=== PATIENT | female | born 1980 | race African-American/Black ===

== ENCOUNTER 2019-11-11 15:28 | Inpatient (IN) | payer MEDICAID, SELFPAY ==
[2019-11-11] VITALS (8 sets, daily range): BP systolic 98–114; BP diastolic 80–83; PULSE 81–126; RESP 20–26; TEMP 37.4–37.8; O2SAT 94–100; BMI 14.9
--- NOTE | ~2019-11-11 | XR_ITS ---
XR abdomen/kub 1V 11/16/2019 13:39 INDICATION: Patient not passing gas. TECHNIQUE: KUB COMPARISON: None FINDINGS: Bowel gas pattern is normal. There is no evidence of free air, mass, organomegaly, ascites or obstruction. No abnormal calculi are seen. The bones appear intact. IMPRESSION: 1: No acute abdominal abnormality identified. Reviewed, dictated and finalized at location A.
--- NOTE | ~2019-11-11 | CT_ITS ---
EXAMINATION: CTA chest PE protocol EXAM DATE: 11/15/2019 16:35 INDICATION: Pneumonia, elbow and troponin. Hypoxia shortness of breath. Chest pain. TECHNIQUE: Spiral CTA of the chest (pulmonary arteries) was performed with 100 cc Omnipaque 350 intr avenous contrast injection. Images were acquired during the pulmonary arterial phase. Coronal maxi mum intensity projection 3D-reconstructions were created by the technologist on dedicated workstation . Axial, coronal and sagittal reformatted images were reviewed. The dose-length product (DLP) for t his examination was 138.80 mGy-cm. The exposure was tailored according to patient size (auto mA exp osure control), and iterative reconstruction (ASIR) was used as additional dose reduction technique. There is no prior study for comparison. FINDINGS: Pulmonary arteries are well opacified and without intraluminal filling defects. No thora cic aortic dissection. Dense multisegmental bilateral lower lobe consolidation, with heterogeneous d ensity, appearance most consistent with bacterial pneumonia. There are extensive scattered regions of honeycombing, and regions of severe emphysema, cavitation largest in the right lung measuring 13 x 8 cm in axial dimensions. There is no bronchiectasis. Patient has some underlying process causing inte rstitial lung disease, possibly advanced sarcoidosis. Tracheobronchial tree is patent. Subcarinal soft tissue density ill-defined, can't separate lymph n ode or nodes from the esophagus, and there is also generalized body wall edema, fat stranding within the fat planes. There are small bilateral pleural and pericardial effusions. There is no pneumothora x. Heart normal in size. No evidence of coronary arterial calcification. Upper abdomen is unrema rkable. There is thoracic spondylosis without osteoblastic or osteolytic lesions identified. IMPRESSION: 1. No pulmonary emboli. 2. Multisegmental bibasilar consolidation, likely bacterial pneumonia. 3. Severe interstitial lung disease with large regions cavitation and honeycombing. If patient does not have known diagnosis, recommend pulmonary consult. 4. Possible subcarinal lymphadenopathy. 5. Anasarca. Reviewed, dictated and finalized at location A. IMPRESSION: 1. No pulmonary emboli. 2. Multisegmental bibasilar consolidation, likely bacterial pneumonia. 3. Severe interstitial lung disease with large regions cavitation and honeycom saadia. If patient does not have known diagnosis, recommend pulmonary consult. 4. Possible subcarinal lymphadenopathy. 5. Anasarca.
--- NOTE | ~2019-11-11 | XR_ITS ---
MODIFIED ESOPHAGRAM HISTORY: Dysphagia. TECHNIQUE: Modified barium esophagram was performed by speech pathologist under radiologist fluorosco pic guidance. This was recorded on tape. The exam was reviewed on 11/17/2019 14:36 CDT. The DAP for this procedure was 1.3 Gycm2. Fluoroscopy time is 2 minutes. FINDINGS: Lateral projection of the cervical spine demonstrates normal alignment. There is normal s wallowing function through all phases without evidence for penetration or aspiration.. IMPRESSION: 1: Normal swallow without penetration or aspiration. 2: Please refer to speech pathologist report for additional detail. Reviewed, dictated and finalized at location A.
--- NOTE | ~2019-11-11 | XR_ITS ---
XR chest 1V portable DATE: 11/11/2019 16:01 INDICATION: Unresponsive patient TECHNIQUE: Portable AP chest on 11/11/2019 at 1555 hours COMPARISON: None FINDINGS: Bilateral hyperinflation and bullae are identified. There is some discoid opacities overlying the left lower lung field which might represent discoid ate lectasis or scarring. Patchy infiltrates are noted in both lower lung zones. Consider pneumonia as we ll as aspiration pneumonitis. No pleural effusion or pulmonary vascular congestion or pneumothorax is evident. Normal heart size. No hilar or mediastinal enlargement is evident. IMPRESSION: Bullous emphysema Patchy bilateral lower lung infiltrates and/atelectasis; consider pneumonia as well as aspiration pne umonitis Reviewed, dictated and finalized at location A. IMPRESSION: Bullous emphysema Patchy bilateral lower lung infiltrates and/atelectasis; consider pneumonia as well as aspiration pneumonitis
--- NOTE | ~2019-11-11 | CT_ITS ---
EXAMINATION: CT brain wo con DATE: 11/11/2019 16:03 INDICATION: Altered mental status. TECHNIQUE: Computed tomography (CT) of the head was performed without intravenous contrast. Sagittal and coronal reconstructions were performed. The mA was adjusted according to patient size. Iterative reconstruction technique was employed. The dose-length product was 605.33 mGy-cm. COMPARISON: None FINDINGS: No acute intracranial hemorrhage, acute infarction or abnormal extra axial fluid collection. Ventricl es are normal and symmetric. No mass/mass effect. The orbits, paranasal sinuses and mastoid air cells are normal. IMPRESSION: 1. Normal head CT. Reviewed, dictated and finalized at location A. IMPRESSION: 1. Normal head CT.
--- NOTE | ~2019-11-11 | XR_ITS ---
XR chest 2V 11/15/2019 09:44 Indication: Pneumonia. Cough and dyspnea. Procedure: PA and lateral views of the chest Comparison: 11/11/2019 Findings: There has been progression of bilateral airspace disease, compatible with pneumonia. This i s superimposed on severe bullous emphysema. Probable small effusions. No pneumothorax identified. No acute osseous abnormality. Impression: 1: Progression of bilateral pneumonia, predominantly basilar, superimposed on emphysema. Reviewed, dictated and finalized at location A. Impression: 1: Progression of bilateral pneumonia, predominantly basilar, superimposed on e mphysema.
--- NOTE | 2019-11-11 15:36 | ECG_ITS ---
Measurements Intervals Superior Rate: 120 P: 77 IL: 149 QRS: 70 QRSD: 81 T: 57 QT: 318 QTc: 449 Interpretive Statements SINUS TACHYCARDIA MINIMAL Q WAVES- INFERIOR LEADS BASELINE ARTIFACT- II, III ABNORMAL ECG Electronically Signed On 11-11-2019 17:10:59 CDT by Jaydon Duran D.O.
[2019-11-11 16:22] LABS: Basophils Percent Auto 0.3 % (0.2-1.2); Hematocrit 33.1 % (37.0-47.0); Hemoglobin 10.7 g/dL (12.0-15.0); Immature Granulocyte Absolute 0.01 K/mm3 (0.00-0.031); Immature Granulocyte Percent A 0.3 % (0-0.5); Lymphocytes Absolute Auto 0.25 K/mm3 (0.9-3.2); Lymphocytes Percent Auto 6.6 % (18.3-44.2); Mean Corpuscular HGB Conc 32.3 g/dl (32-36); Mean Corpuscular Hemoglobin 28.5 pg (26-34); Mean Corpuscular Volume 88.3 fl (80-100); Mean Platelet Volume 10.5 fl (7.4-10.4); Monocytes Absolute Auto 0.3 K/mm3 (0.1-0.6); Neutrophils Absolute Auto 3.2 K/mm3 (1.3-6.7); Neutrophils Percent Auto 84.8 % (45.5-73.1); Platelet Count Result 273 k/mm3 (150-375); Red Blood Count 3.75 M/mm3 (4.2-5.4); Red Cell Distribution Width 13.8 % (11.5-14.5); White Blood Count 3.8 K/mm3 (4.5-10.0)
[2019-11-11 16:31] LABS: Prothrombin Time 12.4 Seconds (11.1-14.7)
[2019-11-11 16:34] LABS: Acetaminophen < 10 ug/mL (10-30); Ammonia < 9 umol/L (9-30); Ethanol < 10 mg/dL (<10); Salicylate < 1.0 mg/dL (2-20)
[2019-11-11 16:36] LABS: Add Urine Microscopic? YES; Appearance Urine Clear (Clear); Bacteria Urine Trace /hpf; Bilirubin Urine 1+ (Negative); Blood Urine Negative (Negative); Color Urine Amber (Yellow); Glucose Urine UA Negative (Negative); Ketones Urine Trace mg/dL (Negative); Leukocyte Esterase Ur Trace LEU/UL (Negative); Mucus Urine Rare /lpf; Nitrate Urine Negative (Negative); Protein Urine 2+ mg/dL (Negative); Specific Grav Ur 1.028 (1.001-1.035); Squamous Epithelial Cell Urine Few /hpf (Few)
[2019-11-11 16:36] LABS: Alanine Aminotransferase 11 U/L (4-35); Albumin Level 3.1 g/dL (3.5-5.1); Alkaline Phosphatase 70 U/L (38-126); Aspartate Amino Transferase 41 U/L (14-36); Bilirubin,Total 1.1 mg/dL (0.2-1.3); Blood Urea Nitrogen 36 mg/dL (7-17); Calcium 9.1 mg/dL (8.4-10.2); Carbon Dioxide 31 mmol/L (22-30); Chloride 96 mmol/L (98-107); Estimated CRCL calculation 39 ml/min; Estimated Glomerular Filt Rate > 60; Glucose 117 mg/dL (65-105); Potassium 3.5 mmol/L (3.4-5.0); Sodium 136 mmol/L (137-145)
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
[2019-11-11] MEDS: SODIUM CHLORIDE 0.9% IV 1,000 ML 125 ML IV CONT (18:13)
[2019-11-11] MEDS: ONDANSETRON INJ 4 MG/2 ML VIAL IV PUSH (18:13)
[2019-11-11 18:46] LABS: Amphetamine Screen Urine Negative (Negative); Barbiturate Screen Urine Negative (Negative); Benzodiazepines Screen Urine Negative (Negative); Cannabinoid Screen Urine Negative (Negative); Cocaine Screen Urine Negative (Negative); Methadone Screen Urine Negative (Negative); Opiate Screen Urine Negative (Negative); Phencyclidine Screen Urine Negative (Negative)
--- NOTE | 2019-11-11 19:20 | ADMIMU ---
This patient, Tracey Silverio, was admitted to IMU status, and placed in Intensive Care Unit-3. Patient/family oriented to hospital policies and general routines including ID bracelet, bed and alarms, visiting hours, pain management, procedures, bathroom and other care routines, personal items, smoking policy, room service/diet, and visiting hours. Valuables list has been completed. Information on how to activate the Rapid Response Team has been discussed. Patient/Family are encouraged to report perceived risks to care and to ask questions if they do not understand what they are told or what they should do.
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
[2019-11-11 20:36] LABS: Troponin I 0.054 ng/mL (0.000-0.034)
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
[2019-11-11] MEDS: FAMOTIDINE 20 MG/2 ML VIAL IV PUSH (21:14)
[2019-11-11 23:27] LABS: Bilirubin,Total 0.6 mg/dL (0.2-1.3)
[2019-11-11 23:29] LABS: Immature Reticulocyte Fraction 12.1 % (3.0-15.9); Reticulocyte Hemoglobin Conten 34.7 pg (28.2-35.7); Reticulocytes Absolute 0.04 B/L (32.2-175.7)
[2019-11-11 23:31] LABS: CRP 1.6 mg/dL (<1.0); Lactate Dehydrogenase 635 U/L (313-618)
[2019-11-11 23:34] LABS: Transferrin 134 mg/dL (206-381)
[2019-11-11 23:42] LABS: Troponin I 0.092 ng/mL (0.000-0.034)
[2019-11-11 23:49] LABS: Iron 37 ug/dL (37-170)
[2019-11-11 23:58] LABS: Percent Iron Saturation 18 % (20-50)
[2019-11-12] VITALS (11 sets, daily range): BP systolic 94–120; BP diastolic 64–84; PULSE 72–95; RESP 14–22; TEMP 36.1–37.8; O2SAT 83–100
[2019-11-12 00:34] LABS: Folic Acid 4.7 ng/mL (2.76->20)
[2019-11-12 01:11] LABS: Ferritin > 2000.00 ng/mL (6.24-137)
[2019-11-12] MEDS: SODIUM CHLORIDE 0.9% IV 1,000 ML 125 ML IV CONT (04:19)
[2019-11-12 04:49] LABS: Blood Urea Nitrogen 27 mg/dL (7-17); Calcium 8.2 mg/dL (8.4-10.2); Carbon Dioxide 32 mmol/L (22-30); Chloride 100 mmol/L (98-107); Estimated CRCL calculation 54 ml/min; Estimated Glomerular Filt Rate > 60; Glucose 123 mg/dL (65-105); Potassium 2.9 mmol/L (3.4-5.0); Sodium 134 mmol/L (137-145)
[2019-11-12 05:13] LABS: Free T4 Free Thyroxine Reflex 1.46 ng/dL (0.78-2.19)
[2019-11-12 05:14] LABS: Troponin I 0.065 ng/mL (0.000-0.034)
[2019-11-12 05:58] LABS: Total Triiodothyronine (T3) 0.63 NG/ML (0.97-1.69)
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
[2019-11-12] MEDS: POTASSIUM CHLORIDE 20 MEQ TABLET 40 MEQ PO (09:41)
[2019-11-12] MEDS: FAMOTIDINE 20 MG/2 ML VIAL IV PUSH ×2 (09:41→22:06)
[2019-11-12] MEDS: ASPIRIN 81 MG CHEWABLE TABLET PO (09:41)
[2019-11-12] MEDS: FERROUS SULFATE 324 MG TABLET PO (12:13)
--- NOTE | 2019-11-12 12:29 | PC.NURSE ---
This patient, Tracey Silverio, was transferred to [[address] ] on 11/12/19 at 1220. Personal belongings sent with patient. Belongings list checked and signed with receiving [3ms belongings bag ]. Report given to [ khloe]. Appropriate documentation sent with patient.
[2019-11-12 13:39] LABS: SARS-CoV-2 RNA PCR Negative
--- NOTE | 2019-11-12 14:04 | PC.NURSE ---
This patient, Tracey Silverio, was received from ICU on 11/12/19 at 1220. Personal belongings list checked and signed. Patient/family oriented to unit policies and routines
[2019-11-12] MEDS: SODIUM CHLORIDE 0.9% IV 1,000 ML 75 ML IV CONT (17:52)
[2019-11-12] MEDS: DOCUSATE SODIUM 100 MG CAPSULE PO (17:54)
[2019-11-12] MEDS: ACETAMINOPHEN 325 MG TABLET 650 MG PO (22:05)
[2019-11-13] VITALS (11 sets, daily range): BP systolic 90–98; BP diastolic 58–70; PULSE 71–96; RESP 14–18; TEMP 36.7–37.3; O2SAT 94–99
[2019-11-13 05:50] LABS: Hematocrit 26.5 % (37.0-47.0); Hemoglobin 8.3 g/dL (12.0-15.0); Mean Corpuscular HGB Conc 31.3 g/dl (32-36); Mean Corpuscular Hemoglobin 28.3 pg (26-34); Mean Corpuscular Volume 90.4 fl (80-100); Mean Platelet Volume 10.5 fl (7.4-10.4); Platelet Count Result 188 k/mm3 (150-375); Red Blood Count 2.93 M/mm3 (4.2-5.4); Red Cell Distribution Width 13.6 % (11.5-14.5); White Blood Count 2.4 K/mm3 (4.5-10.0)
[2019-11-13 06:08] LABS: Blood Urea Nitrogen 18 mg/dL (7-17); Calcium 7.7 mg/dL (8.4-10.2); Carbon Dioxide 27 mmol/L (22-30); Chloride 106 mmol/L (98-107); Estimated CRCL calculation 79 ml/min; Estimated Glomerular Filt Rate > 60; Glucose 86 mg/dL (65-105); Potassium 3.4 mmol/L (3.4-5.0); Sodium 134 mmol/L (137-145)
[2019-11-13] MEDS: ASPIRIN 81 MG CHEWABLE TABLET PO (08:27)
[2019-11-13] MEDS: FERROUS SULFATE 324 MG TABLET PO (08:27)
[2019-11-13] MEDS: FAMOTIDINE 20 MG/2 ML VIAL IV PUSH ×2 (08:28→20:40)
[2019-11-13] MEDS: SODIUM CHLORIDE 0.9% IV 1,000 ML 75 ML IV CONT ×2 (08:29→23:55)
[2019-11-13] MEDS: DOCUSATE SODIUM 100 MG CAPSULE PO (08:41)
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
[2019-11-13] MEDS: POTASSIUM CHLORIDE 20 MEQ TABLET.ER PO (12:20)
[2019-11-13] MEDS: IPRATROPIUM BR 0.02% INH SOLN 0.5 MG/2.5 ML VIAL INHALATION ×2 (13:32→19:31)
[2019-11-13] MEDS: ALBUTEROL SULFATE NEB 2.5 MG/0.5 ML INH 5 MG INHALATION ×2 (13:32→19:31)
[2019-11-14] VITALS (15 sets, daily range): BP systolic 96–113; BP diastolic 68–80; PULSE 83–101; RESP 16–20; TEMP 36.6–37; O2SAT 91–99
[2019-11-14] MEDS: ALBUTEROL SULFATE NEB 2.5 MG/0.5 ML INH 5 MG INHALATION ×4 (01:08→20:17)
[2019-11-14] MEDS: IPRATROPIUM BR 0.02% INH SOLN 0.5 MG/2.5 ML VIAL INHALATION ×4 (01:08→20:17)
[2019-11-14 05:19] LABS: Hematocrit 26.6 % (37.0-47.0); Hemoglobin 8.4 g/dL (12.0-15.0); Mean Corpuscular HGB Conc 31.6 g/dl (32-36); Mean Corpuscular Hemoglobin 28.6 pg (26-34); Mean Corpuscular Volume 90.5 fl (80-100); Platelet Count Result 219 k/mm3 (150-375); Red Blood Count 2.94 M/mm3 (4.2-5.4); Red Cell Distribution Width 13.9 % (11.5-14.5); White Blood Count 2.7 K/mm3 (4.5-10.0)
[2019-11-14 05:30] LABS: Blood Urea Nitrogen 13 mg/dL (7-17); Calcium 8.1 mg/dL (8.4-10.2); Carbon Dioxide 27 mmol/L (22-30); Chloride 105 mmol/L (98-107); Estimated CRCL calculation 93 ml/min; Estimated Glomerular Filt Rate > 60; Glucose 88 mg/dL (65-105); Magnesium 1.4 mg/dL (1.6-2.3); Potassium 3.3 mmol/L (3.4-5.0); Sodium 134 mmol/L (137-145)
[2019-11-14] MEDS: MAGNESIUM SULF 2 GM/WATER 50ML 2 GM/50 ML BAG IVPB (07:58)
[2019-11-14] MEDS: FAMOTIDINE 20 MG/2 ML VIAL IV PUSH ×2 (07:59→20:12)
[2019-11-14] MEDS: FERROUS SULFATE 324 MG TABLET PO (07:59)
[2019-11-14] MEDS: ASPIRIN 81 MG CHEWABLE TABLET PO (07:59)
[2019-11-14] MEDS: POTASSIUM CHLORIDE 20 MEQ TABLET.ER 40 MEQ PO (07:59)
--- NOTE | 2019-11-14 12:54 | PCNWS ---
BMI nutritional screen. BMI:17.2 underweight. Patient is tolerating current diet-Regular with adequate intake. Unsure of weight loss reported. Ensure Compact BID has been added providing an additional 240 kcals and 9 gms protein. No further nutritional needs at this time.
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
[2019-11-14] MEDS: polyethylene glycoL 3350 17 GM POWD.PACK PO (16:16)
[2019-11-14] MEDS: SODIUM CHLORIDE 0.9% IV 1,000 ML 75 ML IV CONT (16:56)
[2019-11-14 21:28] LABS: Albumin 1.9 g/dL (3.8-4.8); Alpha 1 Globulin 0.4 g/dL (0.2-0.3); Alpha 2 Globulin 0.6 g/dL (0.5-0.9); Beta 1 Globulin 0.4 g/dL (0.4-0.6); Gamma Globulin 1.4 g/dL (0.8-1.7); Protein, Total 5.1 g/dL (6.1-8.1)
[2019-11-15] VITALS (13 sets, daily range): BP systolic 98–112; BP diastolic 63–75; PULSE 84–112; RESP 16–20; TEMP 36.8–37.8; O2SAT 92–100
--- NOTE | 2019-11-15 04:25 | PC.NURSE ---
Patient continues to remain disoriented to date despite multiple attempts to reorient to date.
--- NOTE | 2019-11-15 05:45 | PC.NURSE ---
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 Patient noncompliant with physician's verbal instructions to have patient ambulate to bathroom. States that her chest hurts from coughing too much and threatened to call 911 if staff insisted that she ambulate to bathroom. Instead she urinated in the bed intentionally. She stated, it just comes out like that. Instructed that she needs to get up and ambulate, but she adamantly refused. States that she will only get out of bed with physical therapy.
[2019-11-15 06:34] LABS: Hematocrit 25.1 % (37.0-47.0); Mean Corpuscular HGB Conc 31.9 g/dl (32-36); Mean Corpuscular Hemoglobin 28.6 pg (26-34); Mean Corpuscular Volume 89.6 fl (80-100); Mean Platelet Volume 9.6 fl (7.4-10.4); Platelet Count Result 222 k/mm3 (150-375); White Blood Count 2.6 K/mm3 (4.5-10.0)
[2019-11-15 06:45] LABS: Blood Urea Nitrogen 10 mg/dL (7-17); Calcium 7.8 mg/dL (8.4-10.2); Carbon Dioxide 27 mmol/L (22-30); Chloride 107 mmol/L (98-107); Estimated CRCL calculation 99 ml/min; Estimated Glomerular Filt Rate > 60; Glucose 91 mg/dL (65-105); Magnesium 1.5 mg/dL (1.6-2.3); Potassium 3.9 mmol/L (3.4-5.0); Sodium 134 mmol/L (137-145)
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
[2019-11-15] MEDS: IPRATROPIUM BR 0.02% INH SOLN 0.5 MG/2.5 ML VIAL INHALATION ×3 (08:54→20:44)
[2019-11-15] MEDS: ALBUTEROL SULFATE NEB 2.5 MG/0.5 ML INH 5 MG INHALATION ×3 (08:55→20:44)
[2019-11-15] MEDS: POTASSIUM CHLORIDE 20 MEQ TABLET PO (11:03)
[2019-11-15] MEDS: MAGNESIUM SULF 2 GM/WATER 50ML 2 GM/50 ML BAG IVPB (11:04)
[2019-11-15] MEDS: MAGNESIUM OXIDE 400 MG TABLET PO (11:04)
[2019-11-15] MEDS: ASPIRIN 81 MG CHEWABLE TABLET PO (11:05)
[2019-11-15] MEDS: FERROUS SULFATE 324 MG TABLET PO (11:05)
[2019-11-15] MEDS: POTASSIUM CHLORIDE 20 MEQ TABLET.ER 40 MEQ PO (11:05)
[2019-11-15] MEDS: FAMOTIDINE 20 MG/2 ML VIAL IV PUSH ×2 (11:06→20:36)
--- NOTE | 2019-11-15 12:33 | PC.NURSE ---
I contacted Dr Loyd to review CXR results, new 02 requirements of 4L/NC after activity, PT tolerance, and c/o SOB and chest pain with activity. states plan is to change antibiotics since pneumonia worsening with current meds. Orders received for CTA and additional med for cough. Will continue to monitor closely. Patient remains alert and responding appropriately to questions and staff interactions.
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
--- NOTE | 2019-11-15 18:49 | PC.NURSE ---
Patient refuses to take PO medications stating that pills make her feel sick to her stomach. Dr. Loyd notified, no new orders.
--- NOTE | 2019-11-15 18:52 | PC.NURSE ---
Patient went from 1L of O2 to 4L of O2. Patient sustained 95-97% on 4L of O2 up from just 1L. Dr. Loyd notified, order to keep trying to wean patient off O2. Patient still at 4L, no further orders.
[2019-11-16] VITALS (18 sets, daily range): BP systolic 99–113; BP diastolic 58–76; PULSE 82–130; RESP 16–32; TEMP 36.8–37.9; O2SAT 84–99; BMI 17.8
[2019-11-16] MEDS: ALBUTEROL SULFATE NEB 2.5 MG/0.5 ML INH 5 MG INHALATION ×4 (01:36→20:56)
[2019-11-16] MEDS: IPRATROPIUM BR 0.02% INH SOLN 0.5 MG/2.5 ML VIAL INHALATION ×4 (01:36→20:57)
[2019-11-16 05:01] LABS: Haptoglobin 187 mg/dL (43-212)
[2019-11-16 06:40] LABS: Hematocrit 25.6 % (37.0-47.0); Hemoglobin 8.1 g/dL (12.0-15.0); Mean Corpuscular HGB Conc 31.6 g/dl (32-36); Mean Corpuscular Hemoglobin 28.5 pg (26-34); Mean Corpuscular Volume 90.1 fl (80-100); Platelet Count Result 237 k/mm3 (150-375); Red Blood Count 2.84 M/mm3 (4.2-5.4); Red Cell Distribution Width 14.1 % (11.5-14.5); White Blood Count 3.2 K/mm3 (4.5-10.0)
[2019-11-16 06:49] LABS: Alanine Aminotransferase 7 U/L (4-35); Alkaline Phosphatase 56 U/L (38-126); Aspartate Amino Transferase 23 U/L (14-36); Bilirubin,Total 0.4 mg/dL (0.2-1.3); Blood Urea Nitrogen 10 mg/dL (7-17); Calcium 8.2 mg/dL (8.4-10.2); Carbon Dioxide 28 mmol/L (22-30); Chloride 105 mmol/L (98-107); Estimated CRCL calculation 84 ml/min; Estimated Glomerular Filt Rate > 60; Glucose 93 mg/dL (65-105); Magnesium 1.6 mg/dL (1.6-2.3); Potassium 3.9 mmol/L (3.4-5.0); Sodium 134 mmol/L (137-145)
[2019-11-16] MEDS: ASPIRIN 81 MG CHEWABLE TABLET PO (08:10)
[2019-11-16] MEDS: POTASSIUM CHLORIDE 20 MEQ TABLET.ER 40 MEQ PO (08:10)
[2019-11-16] MEDS: FAMOTIDINE 20 MG/2 ML VIAL IV PUSH ×2 (08:10→20:22)
[2019-11-16] MEDS: MAGNESIUM OXIDE 400 MG TABLET PO (08:10)
[2019-11-16] MEDS: FERROUS SULFATE 324 MG TABLET PO (08:10)
[2019-11-16] MEDS: BISACODYL 10 MG SUPPOSITORY RECTAL (15:28)
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
[2019-11-16] MEDS: ACETAMINOPHEN 325 MG TABLET 650 MG PO (18:49)
[2019-11-16 18:59] LABS: IFOB Positive Control Positive; Immunochemical Fecal Occult Bl Positive (N)
--- NOTE | 2019-11-16 22:45 | PCRCNOTE ---
An ABG and PRN albuterol treatment were ordered on the patient due to SOB, desaturation, and trouble getting a consistent SpO2 reading. She refused both. Both the nurse (Lynne Briones) and I talked with her about it but she refused. Lynne informed Dr. Bruner. [facility] updated with refusal.
[2019-11-17] VITALS (8 sets, daily range): BP systolic 96–111; BP diastolic 68–78; PULSE 83–119; RESP 18–24; TEMP 36.7–37.1; O2SAT 96–100
[2019-11-17] MEDS: ONDANSETRON INJ 4 MG/2 ML VIAL IV PUSH (04:43)
[2019-11-17 06:09] LABS: Hemoglobin 8.4 g/dL (12.0-15.0); Mean Corpuscular HGB Conc 32.3 g/dl (32-36); Mean Corpuscular Hemoglobin 28.4 pg (26-34); Mean Corpuscular Volume 87.8 fl (80-100); Mean Platelet Volume 9.6 fl (7.4-10.4); Platelet Count Result 245 k/mm3 (150-375); Red Blood Count 2.96 M/mm3 (4.2-5.4); White Blood Count 7.1 K/mm3 (4.5-10.0)
[2019-11-17 06:31] LABS: Alanine Aminotransferase 8 U/L (4-35); Albumin Level 2.1 g/dL (3.5-5.1); Alkaline Phosphatase 65 U/L (38-126); Aspartate Amino Transferase 26 U/L (14-36); Bilirubin,Total 0.6 mg/dL (0.2-1.3); Blood Urea Nitrogen 13 mg/dL (7-17); Calcium 7.9 mg/dL (8.4-10.2); Carbon Dioxide 27 mmol/L (22-30); Chloride 103 mmol/L (98-107); Estimated CRCL calculation 75 ml/min; Estimated Glomerular Filt Rate > 60; Glucose 101 mg/dL (65-105); Magnesium 1.4 mg/dL (1.6-2.3); Potassium 4.4 mmol/L (3.4-5.0); Sodium 134 mmol/L (137-145)
--- NOTE | 2019-11-17 07:26 | PCPTNOTE ---
The PT treatment was held 11/16/2019 pending clarification of lab tests. Will continue per Plan of Care frequency and duration.
[2019-11-17] MEDS: ALBUTEROL SULFATE NEB 2.5 MG/0.5 ML INH 5 MG INHALATION (08:30)
[2019-11-17] MEDS: IPRATROPIUM BR 0.02% INH SOLN 0.5 MG/2.5 ML VIAL INHALATION (08:30)
--- NOTE | 2019-11-17 08:50 | PC.NURSE ---
I contacted Dr Loyd and status report given including labs. I advised him that patient alert and oriented to person place and time and was demonstrating appropriate behaviors overnight. I also reviewed 02 saturations and requirments overnight and patient refusal of ABGs. Dr Loyd aware that patient remains on closed camera for monitoring but he stated that she does not demonstrate or voice any homicidal or self-harming thoughts or actions. He stated that patient can be relocated to another room with no camera monitoring system or sitter required.
[2019-11-17] MEDS: ASPIRIN 81 MG CHEWABLE TABLET PO (09:15)
[2019-11-17] MEDS: polyethylene glycoL 3350 17 GM POWD.PACK PO (09:15)
[2019-11-17] MEDS: POTASSIUM CHLORIDE 20 MEQ TABLET.ER 40 MEQ PO (09:16)
[2019-11-17] MEDS: MAGNESIUM OXIDE 400 MG TABLET PO (09:16)
[2019-11-17] MEDS: FERROUS SULFATE 324 MG TABLET PO (09:16)
[2019-11-17] MEDS: MAGNESIUM SULF 2 GM/WATER 50ML 2 GM/50 ML BAG IVPB (09:17)
[2019-11-17] MEDS: FAMOTIDINE 20 MG/2 ML VIAL IV PUSH ×2 (09:17→21:38)
[2019-11-17] MEDS: BENZONATATE 100 MG CAPSULE PO (09:34)
[2019-11-17 11:21] LABS: HIV DNA PCR (Qual) Detected (Not Detected)
--- NOTE | 2019-11-17 12:08 | PM.PNPUL ---
Progress Note: A&P Assessment and Plan (1) HIV (human immunodeficiency virus infection): Qualifiers: HIV symptom status: symptomatic Qualified Code(s): B20 - Human immunodeficiency virus [HIV] disease Code(s): B20 - Human immunodeficiency virus [HIV] disease Status: Acute Assessment and Plan: HIV DNA PCR just came back positive. - Will consult Dr. Prince (2) Tubercular lesion of lung: Code(s): A15.0 - Tuberculosis of lung Status: Acute Assessment and Plan: CT scan very suspcious for TB in light of HIV and possible AIDS - I asked nurse Brant to transfer the patient to true negative pressure room for possible active TB - will order sputum for AFB. May need up to three samples. - d/c albutero, iprotropium, budesonide nebs as not needed and risk of further spreading possible TB - Would recommend discontinuing Zosyn but will wait for Dr. Prince's recs before doing so. I do not think this CAP. Although other opportunistic infections may be possible, TB seems most probable based on CT scan features Subjective Date/time seen: 11/17/19 12:08 Interval history: 39 y/o cachectic female with bilateral large upper lobe cysts and bilateral lower consolidations. She is being work for TB. HIV test just came back positive which fits clinical picture. She denies hemoptysis, denies IVDU, She denied high risk sexual behaviour in the past. Review of Systems Review of Systems: All systems reviewed & are unremarkable except as noted in HPI and below Exam Narrative: Exam Narrative: cachectic Const: General: comfortable and no acute distress Neck: Neck: supple and no JVD Lymphatic: lymphadenopathy Resp: Auscultation: no crackles, no rales, no rhonchi, no wheezes and diminished lung sounds Cardio: Rate: regular rate Rhythm: regular rhythm Heart sounds: no murmurs GI: Auscultation: normal bowel sounds Skin: General skin exam: normal color Neuro: Speech: normal speech Extrem: General: no edema and no pedal edema Psych: Affect: No normal affect (flat affect ) Objective Data Vital Signs Vital Signs: Vital Signs - 24 hr 11/16/19 12:13 11/16/19 14:56 11/16/19 15:04 Temperature Pulse Rate 92 88 Respiratory Rate 20 20 Blood Pressure Pulse Oximetry 98 11/16/19 18:00 11/16/19 18:49 11/16/19 20:19 Temperature 37.9 C H 37.9 C H 37.1 C Pulse Rate 110 H Respiratory Rate 18 Blood Pressure 113/76 Pulse Oximetry 93 11/16/19 20:58 11/16/19 21:07 11/16/19 22:00 Temperature 37.1 C Pulse Rate 98 97 130 H Respiratory Rate 20 20 32 H Blood Pressure 99/61 L Pulse Oximetry 94 91 11/16/19 22:25 11/16/19 22:30 11/17/19 02:00 Temperature 36.7 C Pulse Rate 119 H Respiratory Rate 24 H Blood Pressure 106/69 Pulse Oximetry 84 L 91 99 11/17/19 06:00 11/17/19 08:30 11/17/19 08:35 Temperature 36.9 C Pulse Rate 100 98 Respiratory Rate 24 H 20 Blood Pressure 96/74 L Pulse Oximetry 100 96 11/17/19 08:41 11/17/19 10:10 Temperature 36.9 C Pulse Rate 98 95 Respiratory Rate 20 20 Blood Pressure 109/68 Pulse Oximetry 99 Intake/Output Intake/Output: Intake & Output 11/14/19 11/15/19 11/16/19 11/17/19 23:59 23:59 23:59 23:59 Intake Total 2620 1960 1160 390 Output Total 750 300 200 Balance 1870 1660 960 390 Meds/Results Medications: Active Medications Generic Name Dose Route Start Last Admin Trade Name Freq PRN Reason Stop Dose Admin Acetaminophen 650 mg 11/12/19 21:07 11/16/19 18:49 Tylenol Tablet PO 650 mg Q4H PRN Administration Mild Pain (1-3) or Fever Albuterol 2 puff 11/11/19 20:13 Proventil Hfa INHALATION QIDRT PRN Shortness Of Breath Albuterol 5 mg 11/13/19 14:00 11/17/19 08:30 Albuterol Sulf Neb 2.5mg/0.5ml INHALATION 5 mg Q6HRT ALBERT Administration Aspirin 81 mg 11/12/19 08:00 11/17/19 09:15 Aspirin Chewable PO 81 mg DAILY@0800 [facility] Administrati
[2019-11-17] MEDS: DOCUSATE SODIUM 100 MG CAPSULE PO (13:40)
--- NOTE | 2019-11-17 15:46 | PCSTNOTE ---
Please refer to the Modified Barium Swallow Evaluation in the EMR.
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
[2019-11-17] MEDS: EPOETIN ALFA 20,000 UNITS/ML VIAL 20000 UNITS SUB-Q (18:06)
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
[2019-11-18] VITALS (7 sets, daily range): BP systolic 88–108; BP diastolic 48–81; PULSE 78–95; RESP 16–24; TEMP 36.6–38.5; O2SAT 96–100
[2019-11-18 06:00] LABS: Hematocrit 24.5 % (37.0-47.0); Hemoglobin 7.6 g/dL (12.0-15.0); Mean Corpuscular Volume 90.4 fl (80-100); Mean Platelet Volume 10.4 fl (7.4-10.4); Platelet Count Result 260 k/mm3 (150-375); Red Blood Count 2.71 M/mm3 (4.2-5.4); Red Cell Distribution Width 14.1 % (11.5-14.5); White Blood Count 2.2 K/mm3 (4.5-10.0)
[2019-11-18 06:08] LABS: Alanine Aminotransferase 6 U/L (4-35); Albumin Level 1.9 g/dL (3.5-5.1); Alkaline Phosphatase 59 U/L (38-126); Aspartate Amino Transferase 23 U/L (14-36); Bilirubin,Total 0.3 mg/dL (0.2-1.3); Blood Urea Nitrogen 14 mg/dL (7-17); Carbon Dioxide 28 mmol/L (22-30); Chloride 103 mmol/L (98-107); Estimated CRCL calculation 75 ml/min; Estimated Glomerular Filt Rate > 60; Glucose 78 mg/dL (65-105); Magnesium 1.8 mg/dL (1.6-2.3); Potassium 4.4 mmol/L (3.4-5.0); Sodium 134 mmol/L (137-145)
[2019-11-18] MEDS: DOCUSATE SODIUM 100 MG CAPSULE PO (07:41)
[2019-11-18] MEDS: FAMOTIDINE 20 MG/2 ML VIAL IV PUSH ×2 (07:42→20:35)
--- NOTE | 2019-11-18 08:11 | PCOTNOTE ---
Hold per Physician. Will continue therapy services pending testing and appropriate medical status.
--- NOTE | 2019-11-18 08:11 | PCPTNOTE ---
I spoke with Dr. Loyd and due to patient's pending medical workup, therapy is currently on hold at this time. Will re-initiate therapy evaluations as deemed appropriate. Gloria Lees, PT, DPT
--- NOTE | 2019-11-18 11:38 | PM.PNPUL ---
Progress Note: A&P Assessment and Plan (1) HIV (human immunodeficiency virus infection): Qualifiers: HIV symptom status: symptomatic Qualified Code(s): B20 - Human immunodeficiency virus [HIV] disease Code(s): B20 - Human immunodeficiency virus [HIV] disease Status: Acute Assessment and Plan: HIV DNA PCR just came back positive. - Will consult Dr. Prince (2) Tubercular lesion of lung: Code(s): A15.0 - Tuberculosis of lung Status: Acute Assessment and Plan: CT scan very suspcious for TB in light of HIV and possible AIDS - I asked nurse Brant to transfer the patient to true negative pressure room for possible active TB - will order sputum for AFB. May need up to three samples. - d/c albutero, iprotropium, budesonide nebs as not needed and risk of further spreading possible TB - Would recommend discontinuing Zosyn but will wait for Dr. Prince's recs before doing so. I do not think this CAP. Although other opportunistic infections may be possible, TB seems most probable based on CT scan features Subjective Date/time seen: 11/18/19 11:38 Interval history: Pt complaining of chest hurting this morning. Vitals stable and she appears comfortable. I informed her of her HIV + status but she said she did not believe me. She still has a minimal productive cough. Sputum AFB sent yesterday but need three samples total. She denies hemoptysis Review of Systems Review of Systems: All systems reviewed & are unremarkable except as noted in HPI and below Exam Narrative: Exam Narrative: cachectic Const: General: comfortable and no acute distress Neck: Neck: supple and no JVD Lymphatic: lymphadenopathy Resp: Auscultation: no crackles, no rales, no rhonchi, no wheezes and diminished lung sounds Cardio: Rate: regular rate Rhythm: regular rhythm Heart sounds: no murmurs GI: Auscultation: normal bowel sounds Skin: General skin exam: normal color Neuro: Speech: normal speech Extrem: General: no edema and no pedal edema Psych: Affect: No normal affect (flat affect ) Objective Data Vital Signs Vital Signs: Vital Signs - 24 hr 11/17/19 14:20 11/17/19 22:35 11/18/19 02:00 Temperature 36.8 C 37.1 C 36.6 C Pulse Rate 92 83 78 Respiratory Rate 18 18 18 Blood Pressure 106/76 111/78 108/80 Pulse Oximetry 100 100 100 11/18/19 07:52 11/18/19 10:44 Temperature 36.9 C 37.1 C Pulse Rate 79 79 Respiratory Rate 16 20 Blood Pressure 104/75 104/81 Pulse Oximetry 100 100 Intake/Output Intake/Output: Intake & Output 11/15/19 11/16/19 11/17/19 11/18/19 23:59 23:59 23:59 23:59 Intake Total 1960 1160 740 295 Output Total 300 200 400 Balance 1660 960 740 -105 Meds/Results Medications: Active Medications Generic Name Dose Route Start Last Admin Trade Name Freq PRN Reason Stop Dose Admin Acetaminophen 650 mg 11/12/19 21:07 11/16/19 18:49 Tylenol Tablet PO 650 mg Q4H PRN Administration Mild Pain (1-3) or Fever Albuterol 2 puff 11/11/19 20:13 Proventil Hfa INHALATION QIDRT PRN Shortness Of Breath Benzonatate 100 mg 11/15/19 12:35 11/17/19 09:34 Tessalon Perles PO 100 mg Q8H PRN Administration cough Docusate Sodium 100 mg 11/12/19 15:22 11/18/19 07:41 Colace Capsule PO 100 mg Q12H PRN Administration Constipation Famotidine 20 mg 11/11/19 21:00 11/18/19 07:42 Pepcid Iv IV PUSH 20 mg Q12HR [facility] Administration Ferrous Sulfate 324 mg 11/12/19 09:45 11/18/19 08:08 Ferrous Sulfate PO Not Given DAILY [facility] Guaifenesin 1,200 mg 11/13/19 11:40 11/18/19 08:07 Mucinex 12 Hr Tab PO Not Given Q12HR [facility] Azithromycin 500 mg in 250 mls @ 250 mls/hr 11/11/19 18:00 11/17/19 19:07 Zithromax IVPB Infused QPM [facility] Infusion Piperacillin/Tazobactam/Dextrose 3.375 gm in 50 mls @ 100 mls/hr 11/15/19 12:00 11/18/19 06:12 Zosyn 3.375 Gm/D5w 50ml Pm IVPB Infused Q6H [facility]
[2019-11-18 13:39] LABS: Soluble Transferrin Receptor 1.62 mg/L (0.76-1.76)
--- NOTE | 2019-11-18 14:37 | WPDINFPN2 ---
Progress Note: A&P Assessment and Plan (1) HIV (human immunodeficiency virus infection): Qualifiers: HIV symptom status: symptomatic Qualified Code(s): B20 - Human immunodeficiency virus [HIV] disease Code(s): B20 - Human immunodeficiency virus [HIV] disease Status: Acute Assessment and Plan: + HIV DNA assay, suspect true HIV 1 infection REC Quant. RNA pcr, T cells, HIV Ab. Fluconazole for thrush. Ctx # 1 Azithro # 8. QFN also in process. Assuming that HIV infection is present, also get baseline Hepatitis panel and RPR. Subjective Date/time seen: 11/18/19 14:37 Objective Data Vital Signs Vital Signs: Vital Signs - 24 hr 11/17/19 22:35 11/18/19 02:00 11/18/19 07:52 Temperature 37.1 C 36.6 C 36.9 C Pulse Rate 83 78 79 Respiratory Rate 18 18 16 Blood Pressure 111/78 108/80 104/75 Pulse Oximetry 100 100 100 11/18/19 10:44 Temperature 37.1 C Pulse Rate 79 Respiratory Rate 20 Blood Pressure 104/81 Pulse Oximetry 100 Intake/Output Intake/Output: Intake & Output 11/15/19 11/16/19 11/17/19 11/18/19 23:59 23:59 23:59 23:59 Intake Total 1960 1160 740 345 Output Total 300 200 400 Balance 1660 960 740 -55 Meds/Results Medications: Active Medications Generic Name Dose Route Start Last Admin Trade Name Freq PRN Reason Stop Dose Admin Acetaminophen 650 mg 11/12/19 21:07 11/16/19 18:49 Tylenol Tablet PO 650 mg Q4H PRN Administration Mild Pain (1-3) or Fever Albuterol 2 puff 11/11/19 20:13 Proventil Hfa INHALATION QIDRT PRN Shortness Of Breath Benzonatate 100 mg 11/15/19 12:35 11/17/19 09:34 Tessalon Perles PO 100 mg Q8H PRN Administration cough Docusate Sodium 100 mg 11/12/19 15:22 11/18/19 07:41 Colace Capsule PO 100 mg Q12H PRN Administration Constipation Famotidine 20 mg 11/11/19 21:00 11/18/19 07:42 Pepcid Iv IV PUSH 20 mg Q12HR [facility]BERT Administration Ferrous Sulfate 324 mg 11/12/19 09:45 11/18/19 08:08 Ferrous Sulfate PO Not Given DAILY [facility] Guaifenesin 1,200 mg 11/13/19 11:40 11/18/19 08:07 Mucinex 12 Hr Tab PO Not Given Q12HR [facility] Azithromycin 500 mg in 250 mls @ 250 mls/hr 11/11/19 18:00 11/17/19 19:07 Zithromax IVPB Infused QPM [facility] Infusion Ceftriaxone Sodium/Dextrose 1 gm in 50 mls @ 100 mls/hr 11/18/19 14:35 Rocephin 1 Gm/D5w 50 Ml IVPB Q24H [facility] Magnesium Oxide 400 mg 11/15/19 09:00 11/18/19 08:07 Mag-Ox PO Not Given QAM [facility] Ondansetron HCl 4 mg 11/11/19 17:31 11/17/19 04:43 Zofran Inj IV PUSH 4 mg Q4H PRN Administration Nausea Polyethylene Glycol 17 gm 11/14/19 15:15 11/18/19 08:07 Miralax PO Not Given QAM [facility] Potassium Chloride 40 meq 11/14/19 08:00 11/18/19 08:08 Kcl Tablet PO Not Given DAILY@0800 [facility] Radiology Results: ITS Impressions Head CT 11/11/19 16:05 IMPRESSION: 1. Normal head CT. Chest X-Ray 11/15/19 10:04 Impression: 1: Progression of bilateral pneumonia, predominantly basilar, superimposed on emphysema. Chest CTA 11/15/19 16:41 IMPRESSION: 1. No pulmonary emboli. 2. Multisegmental bibasilar consolidation, likely bacterial pneumonia. 3. Severe interstitial lung disease with large regions cavitation and honeycombing. If patient does not have known diagnosis, recommend pulmonary consult. 4. Possible subcarinal lymphadenopathy. 5. Anasarca. Abdomen X-Ray 11/16/19 13:55 IMPRESSION: 1: No acute abdominal abnormality identified. Modified Barium Swallow 11/17/19 14:36 IMPRESSION: 1: Normal swallow without penetration or aspiration. 2: Please refer to speech pathologist report for additional detail. Labs Labs: Laboratory Results - last 24 hr 11/11/19 11/18/19 11/18/19 23:03 05:16 05:16 WBC 2.2 L RBC 2.71 L Hgb 7.6 L Hct 24.5 L MCV 90.4 MCH 28.0 MCHC 31.0 L RDW 14.1 Plt Count 260
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
[2019-11-18] MEDS: FLUCONAZOLE 100 MG TABLET PO (16:47)
[2019-11-18] MEDS: ACETAMINOPHEN 325 MG TABLET 650 MG PO (18:26)
--- NOTE | 2019-11-18 19:53 | CONS_ITS ---
DATE OF CONSULTATION: 11/18/2019 REASON FOR CONSULTATION: HIV DNA test. HISTORY OF PRESENT ILLNESS: The patient is a 39-year-old female who is a fair historian. She reports an HIV test was done some 5 years ago for unknown reasons and was nonreactive. She has had no subsequent testing nor has she believed she needed one. 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 She was admitted through the emergency room on November 10 after being [place] un[place] in her [place]. Here she has been treated with ceftriaxone, azithromycin, and piperacillin for suspected pneumonia and Dr. Massey is also following. The patient does have oral pain and also was having fever prior to admission. ALLERGIES: NONE KNOWN. PRESENT MEDICATIONS: No home medications. Current list reviewed. HABITS: No tobacco or alcohol. She has never used IV drugs. PAST MEDICAL HISTORY: Denies any chronic medical illnesses. FAMILY HISTORY: Not pertinent to her present illness. SOCIAL HISTORY: JOHNNY, has been living in a women's ch[facility] apparently, has a daughter and currently single. REVIEW OF SYSTEMS: Constitutional, skin, ENT, respiratory, GI negative except for cough. PHYSICAL EXAMINATION: GENERAL: This is a cachectic female in no acute distress. VITAL SIGNS: Afebrile on admission and T-max up to 37.9, 104/81, 79, 20, 100% saturation. SKIN: Warm and dry. EENT: Conjunctivae are normal. She has marked thrush over the hard and soft palate and also the tongue. LUNGS: Diminished breath sounds. Otherwise clear. NECK: No meningismus. CARDIAC: Regular rate and rhythm. No murmurs or gallops. ABDOMEN: Scaphoid, nontender. No masses. No organomegaly. EXTREMITIES: No clubbing, cyanosis, edema. LABORATORY DATA: A qualitative HIV DNA was reactive. QuantiFERON is pending. Urine histoplasma antigen pending. Drug screen all nonreactive. Urinalysis, multiple abnormalities, not suggestive of infection. Chemistry panels with mild hyponatremia, low calcium. Albumin also low, however, 1.9. Her liver function tests otherwise normal. White blood cell count consistently low, 2.2 today, hemoglobin 7.6, platelets of 260. Earlier differential normal. Blood cultures, no growth so far. Sputum for AFB is in process. RADIOLOGY: Swallow per radiologist interpretation normal. I personally reviewed her chest x-ray, which shows hyperinflation. I also reviewed the radiologist's reading of her chest x-ray and her chest CT. I personally reviewed her chest CT, which shows large areas of bullae with posterior and basilar infiltrates. ASSESSMENT: 1. Community-acquired pneumonia, possibly opportunistic infection. 2. 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 3. Oral thrush. 4. Severe protein-calorie malnutrition. RECOMMENDATIONS: 1. QuantiFERON is in process along with AFB samples, airborne isolation is appropriate. 2. T-cells, hepatitis panel, RPR, quantitative RNA, and HIV antibody screen. 3. Fluconazole. 4. Change piperacillin to ceftriaxone and continue azithromycin. Thank you very much for asking me to see her. DIONISIO CRANE M.D. SLACKMAN SLACKMAN D I MT: Kamlesh
[2019-11-19 02:04] VITALS: BP 100/71; PULSE 83; RESP 18; O2SAT 99
[2019-11-19 05:00] VITALS: BP 101/68; PULSE 77; RESP 16; TEMP 37.1; O2SAT 97
[2019-11-19 07:41] LABS: Hemoglobin 7.6 g/dL (12.0-15.0); Mean Corpuscular HGB Conc 31.7 g/dl (32-36); Mean Corpuscular Hemoglobin 28.4 pg (26-34); Mean Corpuscular Volume 89.6 fl (80-100); Mean Platelet Volume 10.1 fl (7.4-10.4); Platelet Count Result 275 k/mm3 (150-375); Red Blood Count 2.68 M/mm3 (4.2-5.4); Red Cell Distribution Width 13.9 % (11.5-14.5); White Blood Count 2.2 K/mm3 (4.5-10.0)
[2019-11-19 08:06] LABS: Alanine Aminotransferase 10 U/L (4-35); Alkaline Phosphatase 56 U/L (38-126); Aspartate Amino Transferase 30 U/L (14-36); Bilirubin,Total 0.1 mg/dL (0.2-1.3); Blood Urea Nitrogen 11 mg/dL (7-17); Calcium 7.9 mg/dL (8.4-10.2); Carbon Dioxide 29 mmol/L (22-30); Chloride 101 mmol/L (98-107); Estimated CRCL calculation 83 ml/min; Estimated Glomerular Filt Rate > 60; Glucose 75 mg/dL (65-105); Magnesium 1.6 mg/dL (1.6-2.3); Sodium 129 mmol/L (137-145)
[2019-11-19 08:40] LABS: Hepatitis B Surface Antigen Negative (Negative)
[2019-11-19 08:47] LABS: HAV RESULT Negative (Negative); Hepatitis B Core IgM Result Negative (Negative)
[2019-11-19 09:05] LABS: HIV 1/2 Ab P24 Ag 408; Hepatitis C Virus Antibody Negative (Negative)
[2019-11-19] MEDS: POTASSIUM CHLORIDE 20 MEQ TABLET.ER 40 MEQ PO (09:36)
[2019-11-19] MEDS: FERROUS SULFATE 324 MG TABLET PO (09:37)
[2019-11-19] MEDS: MAGNESIUM OXIDE 400 MG TABLET PO (09:37)
[2019-11-19] MEDS: FAMOTIDINE 20 MG/2 ML VIAL IV PUSH ×2 (09:37→20:39)
[2019-11-19] MEDS: FLUCONAZOLE 100 MG TABLET PO (09:38)
[2019-11-19] MEDS: polyethylene glycoL 3350 17 GM POWD.PACK PO (09:38)
[2019-11-19 10:06] LABS: HIV 1/2 Ab P24 Ag Result Reactive (Negative)
[2019-11-19 10:22] VITALS: O2SAT 97
[2019-11-19 14:00] VITALS: BP 105/71; PULSE 74; RESP 18; TEMP 36.7; O2SAT 100
--- NOTE | 2019-11-19 14:26 | PM.PNPUL ---
Progress Note: A&P Assessment and Plan (1) HIV (human immunodeficiency virus infection): Qualifiers: HIV symptom status: symptomatic Qualified Code(s): B20 - Human immunodeficiency virus [HIV] disease Code(s): B20 - Human immunodeficiency virus [HIV] disease Status: Acute Assessment and Plan: HIV DNA PCR just came back positive. - Will consult Dr. Prince (2) Tubercular lesion of lung: Code(s): A15.0 - Tuberculosis of lung Status: Acute Assessment and Plan: CT scan very suspcious for TB in light of HIV and possible AIDS - I asked nurse Guo to transfer the patient to true negative pressure room for possible active TB - will order sputum for AFB. May need up to three samples. - on Ceftriaxone and Azithromycin per Dr. Prince. - If AFB samples are negative X 3, may consider a bronchoscopy to definitively rule out active TB and other opportunistic infections Subjective Date/time seen: 11/19/19 14:26 Interval history: . Vitals stable and she appears comfortable. I informed her of her HIV + status but she said she did not believe me. She still has a minimal productive cough. Sputum AFB sent yesterday but need three samples total. She denies hemoptysis Review of Systems Review of Systems: All systems reviewed & are unremarkable except as noted in HPI and below Exam Narrative: Exam Narrative: cachectic Const: General: comfortable and no acute distress Neck: Neck: supple and no JVD Lymphatic: lymphadenopathy Resp: Auscultation: no crackles, no rales, no rhonchi, no wheezes and diminished lung sounds Cardio: Rate: regular rate Rhythm: regular rhythm Heart sounds: no murmurs GI: Auscultation: normal bowel sounds Skin: General skin exam: normal color Neuro: Speech: normal speech Extrem: General: no edema and no pedal edema Psych: Affect: No normal affect (flat affect ) Objective Data Vital Signs Vital Signs: Vital Signs - 24 hr 11/18/19 15:21 11/18/19 18:26 11/18/19 18:27 Temperature 37.4 C 38.5 C H 38.5 C H Pulse Rate 80 95 Respiratory Rate 16 24 H Blood Pressure 104/73 99/48 L Pulse Oximetry 98 96 11/18/19 22:00 11/19/19 02:04 11/19/19 05:00 Temperature 37.7 C H 37.1 C Pulse Rate 84 83 77 Respiratory Rate 18 18 16 Blood Pressure 88/58 L 100/71 101/68 Pulse Oximetry 97 99 97 11/19/19 10:22 Temperature Pulse Rate Respiratory Rate Blood Pressure Pulse Oximetry 97 Intake/Output Intake/Output: Intake & Output 11/16/19 11/17/19 11/18/19 11/19/19 23:59 23:59 23:59 23:59 Intake Total 1857 540 4768 580 Output Total 200 400 Balance 988 122 7263 580 Meds/Results Medications: Active Medications Generic Name Dose Route Start Last Admin Trade Name Freq PRN Reason Stop Dose Admin Acetaminophen 650 mg 11/12/19 21:07 11/18/19 18:26 Tylenol Tablet PO 650 mg Q4H PRN Administration Mild Pain (1-3) or Fever Albuterol 2 puff 11/11/19 20:13 Proventil Hfa INHALATION QIDRT PRN Shortness Of Breath Benzonatate 100 mg 11/15/19 12:35 11/17/19 09:34 Tessalon Perles PO 100 mg Q8H PRN Administration cough Docusate Sodium 100 mg 11/12/19 15:22 11/18/19 07:41 Colace Capsule PO 100 mg Q12H PRN Administration Constipation Famotidine 20 mg 11/11/19 21:00 11/19/19 09:37 Pepcid Iv IV PUSH 20 mg Q12HR ALBERT Administration Ferrous Sulfate 324 mg 11/12/19 09:45 11/19/19 09:37 Ferrous Sulfate PO 324 mg DAILY ALBERT Administration Fluconazole 100 mg 11/18/19 14:40 11/19/19 09:38 Diflucan Tablet PO 100 mg QAM ALBERT Administration Guaifenesin 1,200 mg 11/13/19 11:40 11/19/19 09:38 Mucinex 12 Hr Tab PO 1,200 mg Q12HR ALBERT Administration Azithromycin 500 mg in 250 mls @ 250 mls/hr 11/11/19 18:00 11/18/19 19:47 Zithromax IVPB Infused QPM ALBERT Infusion Ceftriaxone Sodium/Dextrose 1 gm in 50 mls @ 100 mls/hr 11/18/19 14:35
[2019-11-19 16:28] LABS: NIL 0.02 IU/mL; Quantiferon TB Plus, 1T NEGATIVE (NEGATIVE)
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
[2019-11-19 19:01] LABS: ANA Cascade Screen Positive (Negative)
[2019-11-19] MEDS: ACETAMINOPHEN 325 MG TABLET 650 MG PO (19:55)
[2019-11-19 21:08] LABS: Chromatin (Nucleosomal) Ab <1.0; Chromatin Antibody Charge YES; DNA (ds) Antibody Charge YES; RNP Antibody <1.0; RNP Antibody Charge YES; Sm Antibody <1.0; Sm Antibody Charge YES; Sm/RNP Antibody <1.0; Sm/RNP Antibody Charge YES
[2019-11-19 22:00] VITALS: BP 101/67; PULSE 100; RESP 16; TEMP 36.7; O2SAT 94
[2019-11-20] VITALS (8 sets, daily range): BP systolic 94–110; BP diastolic 60–79; PULSE 74–95; RESP 16–22; TEMP 36.8–38.3; O2SAT 97–100
[2019-11-20 07:51] LABS: Hematocrit 24.4 % (37.0-47.0); Hemoglobin 7.5 g/dL (12.0-15.0); Mean Corpuscular HGB Conc 30.7 g/dl (32-36); Mean Platelet Volume 10.5 fl (7.4-10.4); Platelet Count Result 280 k/mm3 (150-375); Red Blood Count 2.68 M/mm3 (4.2-5.4); Red Cell Distribution Width 13.7 % (11.5-14.5); White Blood Count 2.4 K/mm3 (4.5-10.0)
[2019-11-20 08:05] LABS: Alanine Aminotransferase 15 U/L (4-35); Albumin Level 2.1 g/dL (3.5-5.1); Alkaline Phosphatase 57 U/L (38-126); Aspartate Amino Transferase 38 U/L (14-36); Bilirubin,Total 0.1 mg/dL (0.2-1.3); Blood Urea Nitrogen 9 mg/dL (7-17); Calcium 8.2 mg/dL (8.4-10.2); Carbon Dioxide 30 mmol/L (22-30); Chloride 103 mmol/L (98-107); Estimated CRCL calculation 98 ml/min; Estimated Glomerular Filt Rate > 60; Glucose 78 mg/dL (65-105); Potassium 3.9 mmol/L (3.4-5.0); Sodium 133 mmol/L (137-145)
[2019-11-20 09:16] LABS: SCL70 Antibody Charge YES; SSA Antibody Charge YES; SSB Antibody Charge YES; Sjogren's Antibody (SS-B) <1.0
[2019-11-20] MEDS: POTASSIUM CHLORIDE 20 MEQ TABLET.ER 40 MEQ PO (09:24)
[2019-11-20] MEDS: FAMOTIDINE 20 MG/2 ML VIAL IV PUSH ×2 (09:25→20:51)
[2019-11-20] MEDS: FERROUS SULFATE 324 MG TABLET PO (09:25)
[2019-11-20] MEDS: MAGNESIUM OXIDE 400 MG TABLET PO (09:26)
[2019-11-20] MEDS: polyethylene glycoL 3350 17 GM POWD.PACK PO (09:26)
[2019-11-20] MEDS: FLUCONAZOLE 100 MG TABLET PO (09:26)
--- NOTE | 2019-11-20 10:36 | PM.PNPUL ---
Progress Note: A&P Assessment and Plan (1) HIV (human immunodeficiency virus infection): Qualifiers: HIV symptom status: symptomatic Qualified Code(s): B20 - Human immunodeficiency virus [HIV] disease Code(s): B20 - Human immunodeficiency virus [HIV] disease Status: Acute Assessment and Plan: HIV DNA PCR just came back positive. - Will consult Dr. Prince (2) Tubercular lesion of lung: Code(s): A15.0 - Tuberculosis of lung Status: Acute Assessment and Plan: CT scan very suspcious for TB in light of HIV and possible AIDS - I asked nurse Brant to transfer the patient to true negative pressure room for possible active TB - will order sputum for AFB. May need up to three samples. - on Ceftriaxone and Azithromycin per Dr. Prince. - If AFB samples are negative X 3, highly recommend a bronochoscopy to definitively rule out active TB and other opportunistic infections - should should remain in droplet precautions for TB until definitively rule out. Subjective Date/time seen: 11/20/19 10:36 Interval history: seems more energetic. Still in denial about HIV Status. She denies hempotysis. 1/3 three sputums samples are negative for AFB. Her sputum samples are very unreliable as she is mostly giving saliva samples. If three negative sputums, I would highly advocate for Bronchoscopy to be done for BAL AFB and remain in droplet precautions for TB until active TB ruled out. Review of Systems Review of Systems: All systems reviewed & are unremarkable except as noted in HPI and below Exam Narrative: Exam Narrative: cachectic Const: General: comfortable and no acute distress Neck: Neck: supple and no JVD Lymphatic: lymphadenopathy Resp: Auscultation: no crackles, no rales, no rhonchi, no wheezes and diminished lung sounds Cardio: Rate: regular rate Rhythm: regular rhythm Heart sounds: no murmurs GI: Auscultation: normal bowel sounds Skin: General skin exam: normal color Neuro: Speech: normal speech Extrem: General: no edema and no pedal edema Psych: Affect: No normal affect (flat affect ) Objective Data Vital Signs Vital Signs: Vital Signs - 24 hr 11/19/19 14:00 11/19/19 22:00 11/20/19 02:00 Temperature 36.7 C 36.7 C 37.0 C Pulse Rate 74 100 74 Respiratory Rate 18 16 16 Blood Pressure 105/71 101/67 100/72 Pulse Oximetry 100 94 98 11/20/19 05:00 11/20/19 10:12 Temperature 36.9 C 37.1 C Pulse Rate 78 86 Respiratory Rate 16 18 Blood Pressure 95/60 L 103/76 Pulse Oximetry 100 100 Intake/Output Intake/Output: Intake & Output 11/17/19 11/18/19 11/19/19 11/20/19 23:59 23:59 23:59 23:59 Intake Total 740 1485 1510 720 Output Total 400 Balance 740 1085 1510 720 Meds/Results Medications: Active Medications Generic Name Dose Route Start Last Admin Trade Name Freq PRN Reason Stop Dose Admin Acetaminophen 650 mg 11/12/19 21:07 11/19/19 19:55 Tylenol Tablet PO 650 mg Q4H PRN Administration Mild Pain (1-3) or Fever Albuterol 2 puff 11/11/19 20:13 Proventil Hfa INHALATION QIDRT PRN Shortness Of Breath Benzonatate 100 mg 11/15/19 12:35 11/17/19 09:34 Tessalon Perles PO 100 mg Q8H PRN Administration cough Docusate Sodium 100 mg 11/12/19 15:22 11/18/19 07:41 Colace Capsule PO 100 mg Q12H PRN Administration Constipation Famotidine 20 mg 11/11/19 21:00 11/20/19 09:25 Pepcid Iv IV PUSH 20 mg Q12HR ALBERT Administration Ferrous Sulfate 324 mg 11/12/19 09:45 11/20/19 09:25 Ferrous Sulfate PO 324 mg DAILY ALBERT Administration Fluconazole 100 mg 11/18/19 14:40 11/20/19 09:26 Diflucan Tablet PO 100 mg QAM ALBERT Administration Guaifenesin 1,200 mg 11/13/19 11:40 11/20/19 09:25 Mucinex 12 Hr Tab PO 1,200 mg Q12HR ALBERT Administration Azithromycin 500 mg in 250 mls @ 250 mls/hr 11/11/19 18:00 11/19/19 19:57 Zithromax IVPB Infused QPM ALBERT In
--- NOTE | 2019-11-20 15:11 | PM.IMPN ---
Progress Note: A&P Assessment and Plan (1) Pneumonia: Qualifiers: Laterality: bilateral Lung location: lower lobe of lung Pneumonia type: due to unspecified organism Qualified Code(s): J18.9 - Pneumonia, unspecified organism Code(s): J18.9 - Pneumonia, unspecified organism Status: Acute Assessment and Plan: 11/20/19 15:11 Date of Service: 11/16/2019. Admitted with altered mental status, pneumonia, acute renal failure. Still feels weak. Does still complain of chest pain with cough. Complains of shortness of breath. Reports still has some sputum with her. Feels weak. today repeat chest x-ray showed worsening pneumonia, since there there was a concerned patient may have aspiration pneumonia will stop Rocephin will start the patient Zosyn, also patient oxygen requirement is also increasing, patient does not cooperate and urinated on herself, Nursing reports patient has not been wanting to do anything for herself. Patient does not remember the address of her home or the telephone number or any contacts, however patient continued to cough to further evaluate patient had CTA of the chest, he did not show pulmonary emboli however patient has a significant interstitial lung disease will consult the flat bed operator further recommendation, patient has not had a BM and several days KUB showed no obstruction will give suppository will increase the patient oral intake, today patient is seen by flat bed operator, patient is HIV positive and flat bed operator suspect CT scan most likely indicates TB presentation, transferred the patient to negative pressure room, Patient was seen Dr. conley on 11/17 and further work up was ordered, stopped Zosyn and started on ceftriaxone and continued zithromax, patient does not provide detailed review of symptoms however feels little better not coughing as much, c/o constipation but does not eat much and does not want to take Miralax. patient 1st sputum TB is negative will need two additional sputum tests however flat bed operator is recommending bronchsopy to get better sample to r/o TB. will continue to monitor and follow up labs. (2) Emphysema lung: Qualifiers: Emphysema type: unspecified Qualified Code(s): J43.9 - Emphysema, unspecified Code(s): J43.9 - Emphysema, unspecified Status: Acute Assessment and Plan: Bullous emphysematous changes seen on chest x-ray. Continue nebulizer treatments and Symbicort. Continue oxygen and wean as tolerated. May need home O2 evaluation when ready for discharge. (3) Suspected COVID-19 virus infection: Code(s): Z20.828 - Contact with and (suspected) exposure to other viral communicable diseases Status: Ruled-out Assessment and Plan: COVID-19 testing negative. (4) Anemia: Qualifiers: Anemia type: iron deficiency Iron deficiency anemia type: unspecified iron deficiency Qualified Code(s): D50.9 - Iron deficiency anemia, unspecified Code(s): D64.9 - Anemia, unspecified Status: Acute Assessment and Plan: Iron studies consistent with iron deficiency. Probably result of poor intake. Will continue oral iron. Vitamin B12 and folate normal. No signs of bleeding. Hemoglobin stable at 7.6 today. Initial drop most likely dilutional. Will continue to follow. Only transfuse as needed. (5) Hypokalemia: Code(s): E87.6 - Hypokalemia Status: Acute Assessment and Plan: Potassium low at 2.9 on 11/12/2019 with oral replacement given. Potassium still low today at 3.3 with oral replacement increased. Will continue to monitor and adjust replacement as needed. and now close to normal (6) Hypomagnesemia: Code(s): E83.42 - Hypomagnesemia Status: Acute Assessment and Plan: Magnesium 1.5 today with IV replacement given. Recheck in a.m.. Replace as needed. (7) Emaciated: Code(s): E41 - Nutritional marasmus Status: Acute Assessment and
[2019-11-20] MEDS: ACETAMINOPHEN 325 MG TABLET 650 MG PO (18:05)
[2019-11-21] VITALS (12 sets, daily range): BP systolic 84–113; BP diastolic 50–69; PULSE 74–103; RESP 16–20; TEMP 36.8–39.1; O2SAT 92–99
[2019-11-21 06:26] LABS: Hematocrit 24.8 % (37.0-47.0); Hemoglobin 7.9 g/dL (12.0-15.0); Mean Corpuscular HGB Conc 31.9 g/dl (32-36); Mean Corpuscular Hemoglobin 28.5 pg (26-34); Mean Corpuscular Volume 89.5 fl (80-100); Mean Platelet Volume 9.9 fl (7.4-10.4); Platelet Count Result 305 k/mm3 (150-375); Red Blood Count 2.77 M/mm3 (4.2-5.4); Red Cell Distribution Width 13.4 % (11.5-14.5); White Blood Count 2.8 K/mm3 (4.5-10.0)
[2019-11-21 07:15] LABS: Alanine Aminotransferase 21 U/L (4-35); Albumin Level 2.2 g/dL (3.5-5.1); Alkaline Phosphatase 63 U/L (38-126); Aspartate Amino Transferase 44 U/L (14-36); Bilirubin,Total < 0.1 mg/dL (0.2-1.3); Blood Urea Nitrogen 10 mg/dL (7-17); Calcium 8.2 mg/dL (8.4-10.2); Carbon Dioxide 31 mmol/L (22-30); Chloride 101 mmol/L (98-107); Estimated CRCL calculation 83 ml/min; Estimated Glomerular Filt Rate > 60; Glucose 80 mg/dL (65-105); Potassium 4.1 mmol/L (3.4-5.0); Sodium 134 mmol/L (137-145)
[2019-11-21 07:41] LABS: Rapid Plasma Reagin Non-Reactive (NonReactive)
[2019-11-21] MEDS: POTASSIUM CHLORIDE 20 MEQ TABLET.ER 40 MEQ PO (09:42)
[2019-11-21] MEDS: FLUCONAZOLE 100 MG TABLET PO (09:42)
[2019-11-21] MEDS: FERROUS SULFATE 324 MG TABLET PO (09:42)
[2019-11-21] MEDS: FAMOTIDINE 20 MG/2 ML VIAL IV PUSH ×2 (09:42→20:29)
[2019-11-21] MEDS: MAGNESIUM OXIDE 400 MG TABLET PO (09:43)
[2019-11-21] MEDS: polyethylene glycoL 3350 17 GM POWD.PACK PO (09:43)
--- NOTE | 2019-11-21 12:04 | PCNFU ---
Nutrition Follow-Up Complete: Inadequate Oral Intake as related to Pnuemonia as evidenced by reported poor po intake on admission. Goal: adequate Intake of at least 50% of meals/supplements Progressing towards goal. We will continue current goal. Pt current nutrition is Regular . Nutrition recommendation:Agree Last recorded weight is 49.5 kg. Bowel Motility:+BM reported 11/18 Labs Reviewed:BUN 0.6,Na 134,Alb 2.2 Meds Noted:Miralax,Mag-Ox,Mucinex,Pepcid Additional Notes:Patient currently on a Regular diet with Ensure compact BID(240 kcals and 9 gms protein). Oral Intake fair: 50-75% of meals. Breakfast today, cereal, sausage and thakur. Patient is HIV +. Patient 1st sputum TB is negative, home health assistant is recommending bronchoscopy to get better sample to r/o TB. PO intake encouraged. Monitoring: RD will monitor every 5 days.
--- NOTE | 2019-11-21 15:01 | PM.PNPUL ---
Progress Note: A&P Assessment and Plan (1) Tubercular lesion of lung: Code(s): A15.0 - Tuberculosis of lung Status: Acute Assessment and Plan: CT scan very suspcious for TB in light of HIV and possible AIDS. Her Quantiferon Gold is negative, making it unlikely that she has TB, however cold have other mycobacterial infections. . - sputum for AFB negative one specimen, may not be able to get more good quality to evaluate for AFB. - on Ceftriaxone day #4 and Azithromycin day #10, per Dr. Prince. - most likely, she will need a bronch with BAL for this reason as well as to r/o other opportunistic infections - should should remain in droplet precautions for TB until definitively rule out. (2) HIV (human immunodeficiency virus infection): Qualifiers: HIV symptom status: symptomatic Qualified Code(s): B20 - Human immunodeficiency virus [HIV] disease Code(s): B20 - Human immunodeficiency virus [HIV] disease Status: Acute Assessment and Plan: HIV DNA PCR is positive, and she is being followed by Dr Prince. She has (+) HIV 1&2 antibody and p24 antigen. She appears to have AIDS defining illness with severe pneumonia, encephalopathy, wasting, candidiasis on her mouth. She will eventually start antiretroviral therapy. Subjective Date/time seen: 11/21/19 15:01 Interval history: This 39 yo female is seen for pulmonary interstitial changes on chest CT, possible TB. She is in a negative pressure room. Still in denial about HIV Status. She denies hempotysis. One of three sputum samples are negative for AFB, however her samples are poor quality. Her sputum samples are very unreliable as she is mostly giving saliva samples. We may not be able to get 3 negative sputums for TB, and doing a bronch with BAL may be the most efficient way to obtain specimens. She has AIDS, has severe opportunistic lung infection, and needs a proper diagnosis of her lung pathology. She will remain in droplet precautions for TB until active TB ruled out. She continues to act irrationally, smears food on her hands, wipes the mess all over everything. She tells me that she does not trust anyone, says she does not believe me when I tell her she has AIDS and that she may have tuberculosis. Review of Systems Review of Systems: All systems reviewed & are unremarkable except as noted in HPI and below Exam Narrative: Exam Narrative: cachectic Const: General: comfortable, no acute distress and ill appearing Nutritional Appearance: cachectic Limitations: altered mental status (flat affect, poor historian, poor memory) HENMT: Head: normal to inspection Ears: hearing grossly normal bilaterally Mouth: Yes moist mucous membranes abnormal ( thick White coating over all oral membranes) Other: Abnormal swallowing; does retain food and liquids in the oral cavity after swallowing even with passing the swallow testing. Eyes: General: appearance normal, both eyes and all related structures Neck: Neck: supple and no JVD Lymphatic: lymphadenopathy Chest: Chest palpation & inspection: normal inspection of the chest Other: Few crackles both posterior lung leach, more pronounced in the bases. Resp: Auscultation: rales (minimal in bases posteriorly) and diminished lung sounds Cardio: Rate: regular rate Rhythm: regular rhythm Heart sounds: S1 normal heart sound present, S2 normal heart sound present, no gallops and no murmurs GI: Inspection: scaphoid Auscultation: normal bowel sounds and Hypoactive bowel sounds present Skin: General skin exam: normal color and no rashes or lesions noted Neuro: Speech: normal speech Extrem: General: no pedal edema, no edema and no pedal edema Psych: Affect: No normal affect (flat affect ) Objective Data Vital Signs Vital Signs: Vital Signs - 24 hr 11/19/
--- NOTE | 2019-11-21 17:14 | WPDONCPN ---
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 Patient has received Procrit injection. She is currently on oral iron once a day. Reporting level is pending. Hemoglobin is stable. Hemoglobin will likely improve with improvement in her nutrition and control of her underlying infection. Patient will follow with me in couple of weeks after the discharge for management of her anemia. HIV infection. Dr. conley is following the patient. - Time Spent With Patient Total time spent is greater than 50% in coordination of care (as documented) at patient's floor/unit and/or counseling patient: 15 - 25 minutes Subjective Interval history: Multifactorial anemia secondary to HIV disease and chronic inflammation/infection and malnutrition Review of Systems - Review of Systems Patient is much more awake and alert. She remains tired and weak. She has been eating well. Complain of constipation. Denies any other complain of fevers and chills. - Neurologic Reports system reviewed and no additional complaints, except as documented, Reports hearing normal, Reports weakness, Denies headache(s) Exam Vital signs: Temp Pulse Resp BP Pulse Ox 38.0 C H 74 16 113/58 L 92 11/21/19 14:00 11/21/19 14:00 11/21/19 14:00 11/21/19 14:00 11/21/19 14:00 Narrative: Lungs are clear to auscultation bilaterally Cardiovascular regular rate rhythm no murmurs Abdomen soft nontender nondistended bowel sounds are positive Extremities no edema PN: Objective Data - Labs CBC & Chem 7: 11/21/19 05:59 11/21/19 05:59 Labs: Laboratory Results - last 24 hr 11/19/19 11/21/19 11/21/19 06:45 05:59 05:59 WBC 2.8 L RBC 2.77 L Hgb 7.9 L Hct 24.8 L MCV 89.5 MCH 28.5 MCHC 31.9 L RDW 13.4 Plt Count 305 MPV 9.9 Sodium 134 L Potassium 4.1 Chloride 101 Carbon Dioxide 31 H BUN 10 Creatinine 0.60 L Estim Creat Clear Calc 83 Estimated GFR > 60 Glucose 80 Calcium 8.2 L Total Bilirubin < 0.1 L AST 44 H ALT 21 Alkaline Phosphatase 63 Total Protein 6.0 L Albumin 2.2 L RPR Non-reactive
--- NOTE | 2019-11-21 17:35 | PM.IMPN ---
Progress Note: A&P Assessment and Plan (1) Pneumonia: Qualifiers: Laterality: bilateral Lung location: lower lobe of lung Pneumonia type: due to unspecified organism Qualified Code(s): J18.9 - Pneumonia, unspecified organism Code(s): J18.9 - Pneumonia, unspecified organism Status: Acute Assessment and Plan: 11/21/19 17:35 Date of Service: 11/16/2019. Admitted with altered mental status, pneumonia, acute renal failure. Still feels weak. Does still complain of chest pain with cough. Complains of shortness of breath. Reports still has some sputum with her. Feels weak. today repeat chest x-ray showed worsening pneumonia, since there there was a concerned patient may have aspiration pneumonia will stop Rocephin will start the patient Zosyn, also patient oxygen requirement is also increasing, patient does not cooperate and urinated on herself, Nursing reports patient has not been wanting to do anything for herself. Patient does not remember the address of her home or the telephone number or any contacts, however patient continued to cough to further evaluate patient had CTA of the chest, he did not show pulmonary emboli however patient has a significant interstitial lung disease will consult the endoscopy nurse further recommendation, patient has not had a BM and several days KUB showed no obstruction will give suppository will increase the patient oral intake, today patient is seen by endoscopy nurse, patient is HIV positive and endoscopy nurse suspect CT scan most likely indicates TB presentation, transferred the patient to negative pressure room, Patient was seen Dr. conley on 11/17 and further work up was ordered, stopped Zosyn and started on ceftriaxone and continued zithromax, patient does not provide detailed review of symptoms however feels little better not coughing as much, c/o constipation but does not eat much and does not want to take Miralax. patient 1st sputum TB is negative will need two additional sputum tests however today patient was seen endoscopy nurse is recommending bronchsopy to get better sample to r/o TB. However patient is not convince that she TB will continue to monitor and follow up labs. (2) Emphysema lung: Qualifiers: Emphysema type: unspecified Qualified Code(s): J43.9 - Emphysema, unspecified Code(s): J43.9 - Emphysema, unspecified Status: Acute Assessment and Plan: Bullous emphysematous changes seen on chest x-ray. Continue nebulizer treatments and Symbicort. Continue oxygen and wean as tolerated. May need home O2 evaluation when ready for discharge. (3) Suspected COVID-19 virus infection: Code(s): Z20.828 - Contact with and (suspected) exposure to other viral communicable diseases Status: Ruled-out Assessment and Plan: COVID-19 testing negative. (4) Anemia: Qualifiers: Anemia type: iron deficiency Iron deficiency anemia type: unspecified iron deficiency Qualified Code(s): D50.9 - Iron deficiency anemia, unspecified Code(s): D64.9 - Anemia, unspecified Status: Acute Assessment and Plan: Iron studies consistent with iron deficiency. Probably result of poor intake. Will continue oral iron. Vitamin B12 and folate normal. No signs of bleeding. Hemoglobin stable at 7.6 today. Initial drop most likely dilutional. Will continue to follow. Only transfuse as needed. (5) Hypokalemia: Code(s): E87.6 - Hypokalemia Status: Acute Assessment and Plan: Potassium low at 2.9 on 11/12/2019 with oral replacement given. Potassium still low today at 3.3 with oral replacement increased. Will continue to monitor and adjust replacement as needed. and now close to normal (6) Hypomagnesemia: Code(s): E83.42 - Hypomagnesemia Status: Acute Assessment and Plan: Magnesium 1.5 today with IV replacement given. Recheck in a.m.. Replace as needed. (7) Emaciated: Code(s):
[2019-11-21] MEDS: ACETAMINOPHEN 325 MG TABLET 650 MG PO (20:28)
[2019-11-21 21:20] LABS: Erythropoietin (EPO) 49.6 mIU/mL (2.6-18.5)
[2019-11-22] VITALS (7 sets, daily range): BP systolic 99–116; BP diastolic 71–77; PULSE 79–108; RESP 14–20; TEMP 36.5–38.2; O2SAT 92–100
[2019-11-22] MEDS: DOCUSATE SODIUM 100 MG CAPSULE PO (00:16)
[2019-11-22] MEDS: FLUCONAZOLE 100 MG TABLET PO (09:55)
[2019-11-22] MEDS: POTASSIUM CHLORIDE 20 MEQ TABLET.ER 40 MEQ PO (09:55)
[2019-11-22] MEDS: polyethylene glycoL 3350 17 GM POWD.PACK PO (09:56)
[2019-11-22] MEDS: FERROUS SULFATE 324 MG TABLET PO (09:56)
[2019-11-22] MEDS: MAGNESIUM OXIDE 400 MG TABLET PO (09:56)
[2019-11-22] MEDS: FAMOTIDINE 20 MG/2 ML VIAL IV PUSH ×2 (09:56→20:33)
--- NOTE | 2019-11-22 12:01 | WPDINFPN2 ---
Progress Note: A&P Assessment and Plan (1) HIV (human immunodeficiency virus infection): Qualifiers: HIV symptom status: symptomatic Qualified Code(s): B20 - Human immunodeficiency virus [HIV] disease Code(s): B20 - Human immunodeficiency virus [HIV] disease Status: Acute Assessment and Plan: 1. HIV infection, with + Ab screen and + DNA. CD4 count still pending, but with total lymphocyte count on admission of 240, I suspect she has AIDS. 2. Lung infiltrates REC Quant. RNA pcr still pending also. Continue Ctx # 5 / 7 days. now off Azithro (but will need suppression with 1200 mg weekly if CD4 < 50). Begin antiretroviral with Genvoya. Can stop isolation. Subjective Date/time seen: 11/22/19 12:01 Interval history: breathing easier Exam Narrative: Exam Narrative: t max 39.1 Const: General: no acute distress HENMT: Other: thrush resolved Eyes: General: appearance normal, both eyes and all related structures Resp: Effort & Inspection: normal respiratory effort Auscultation: clear to auscultation bilaterally and diminished lung sounds Cardio: Rate: regular rate Rhythm: regular rhythm Heart sounds: no gallops and no murmurs GI: Inspection: non-distended GI Palp: Yes Soft to palpation and No Tenderness to palpation present (GI) Objective Data Vital Signs Vital Signs: Vital Signs - 24 hr 11/21/19 14:00 11/21/19 18:45 11/21/19 19:51 Temperature 38.0 C H 39.1 C H 39.0 C H Pulse Rate 74 100 Respiratory Rate 16 18 Blood Pressure 113/58 L 101/69 Pulse Oximetry 92 93 11/21/19 20:28 11/21/19 21:27 11/21/19 21:48 Temperature 39.0 C H 37.8 C H 37.8 C H Pulse Rate Respiratory Rate Blood Pressure Pulse Oximetry 11/21/19 22:00 11/21/19 22:30 11/22/19 00:30 Temperature 37.8 C H 37.6 C 36.5 C Pulse Rate 103 H Respiratory Rate 16 Blood Pressure 104/67 Pulse Oximetry 98 11/22/19 02:00 11/22/19 06:00 11/22/19 10:00 Temperature 36.8 C 36.8 C 36.7 C Pulse Rate 108 H 79 98 Respiratory Rate 18 16 14 Blood Pressure 101/76 99/71 L 107/73 Pulse Oximetry 100 92 98 Intake/Output Intake/Output: Intake & Output 11/19/19 11/20/19 11/21/19 11/22/19 23:59 23:59 23:59 23:59 Intake Total 1510 1620 1760 270 Balance 1510 1620 1760 270 Meds/Results Medications: Active Medications Generic Name Dose Route Start Last Admin Trade Name Freq PRN Reason Stop Dose Admin Acetaminophen 650 mg 11/12/19 21:07 11/21/19 20:28 Tylenol Tablet PO 650 mg Q4H PRN Administration Mild Pain (1-3) or Fever Albuterol 2 puff 11/11/19 20:13 Proventil Hfa INHALATION QIDRT PRN Shortness Of Breath Benzonatate 100 mg 11/15/19 12:35 11/17/19 09:34 Tessalon Perles PO 100 mg Q8H PRN Administration cough Bisacodyl 5 mg 11/21/19 17:38 Dulcolax Tab PO DAILY PRN Constipation Docusate Sodium 100 mg 11/12/19 15:22 11/22/19 00:16 Colace Capsule PO 100 mg Q12H PRN Administration Constipation Famotidine 20 mg 11/11/19 21:00 11/22/19 09:56 Pepcid Iv IV PUSH 20 mg Q12HR ALBERT Administration Ferrous Sulfate 324 mg 11/12/19 09:45 11/22/19 09:56 Ferrous Sulfate PO 324 mg DAILY ALBERT Administration Fluconazole 100 mg 11/18/19 14:40 11/22/19 09:55 Diflucan Tablet PO 100 mg QAM ALBERT Administration Guaifenesin 1,200 mg 11/13/19 11:40 11/22/19 09:55 Mucinex 12 Hr Tab PO 1,200 mg Q12HR ALBERT Administration Ceftriaxone Sodium/Dextrose 1 gm in 50 mls @ 100 mls/hr 11/18/19 14:35 11/22/19 10:33 Rocephin 1 Gm/D5w 50 Ml IVPB Infused QAM ALBERT Infusion Magnesium Oxide 400 mg 11/15/19 09:00 11/22/19 09:56 Mag-Ox PO 400 mg QAM ALBERT Administration Ondansetron HCl 4 mg 11/11/19 17:31 11/17/19 04:43 Zofran Inj IV PUSH 4 mg Q4H PRN Administration Nausea Polyethylene Glycol 17 gm 11/14/19 15:15 11/22/19 09:56 Miralax PO 17 gm QAM ALBERT Admi
--- NOTE | 2019-11-22 16:02 | PM.IMPN ---
Progress Note: A&P Assessment and Plan (1) Pneumonia: Qualifiers: Laterality: bilateral Lung location: lower lobe of lung Pneumonia type: due to unspecified organism Qualified Code(s): J18.9 - Pneumonia, unspecified organism Code(s): J18.9 - Pneumonia, unspecified organism Status: Acute Assessment and Plan: 11/22/19 16:02 Date of Service: Admitted with altered mental status, pneumonia, acute renal failure. Still feels weak. Does still complain of chest pain with cough. Complains of shortness of breath. Reports still has some sputum with her. Feels weak. today repeat chest x-ray showed worsening pneumonia, since there there was a concerned patient may have aspiration pneumonia will stop Rocephin will start the patient Zosyn, also patient oxygen requirement is also increasing, patient does not cooperate and urinated on herself, Nursing reports patient has not been wanting to do anything for herself. Patient does not remember the address of her home or the telephone number or any contacts, however patient continued to cough to further evaluate patient had CTA of the chest, he did not show pulmonary emboli however patient has a significant interstitial lung disease will consult the store protection specialist further recommendation, patient has not had a BM and several days KUB showed no obstruction will give suppository will increase the patient oral intake, today patient is seen by store protection specialist, patient is HIV positive and store protection specialist suspect CT scan most likely indicates TB presentation, transferred the patient to negative pressure room, Patient was seen Dr. prince on 11/17 and further work up was ordered, stopped Zosyn and started on ceftriaxone and continued zithromax, patient does not provide detailed review of symptoms however feels little better not coughing as much, c/o constipation but does not eat much and does not want to take Miralax. patient 1st sputum TB is negative will need two additional sputum tests however today patient was seen store protection specialist is recommending bronchsopy to get better sample to r/o TB. today patient was seen Dr. Prince Quant. RNA pcr is negative and patient is taken off isolation, HIV patient CD 4 count is pending but with total lymphocyte count on admission of 240 suspect patient has AIDS and started patient on antiretroviral with Genvoya. will continue rocephin and patient completed zithromax, today patient had BM, stats feeling better and today patient more alert. (2) Emphysema lung: Qualifiers: Emphysema type: unspecified Qualified Code(s): J43.9 - Emphysema, unspecified Code(s): J43.9 - Emphysema, unspecified Status: Acute Assessment and Plan: Bullous emphysematous changes seen on chest x-ray. Continue nebulizer treatments and Symbicort. Continue oxygen and wean as tolerated. May need home O2 evaluation when ready for discharge. (3) Suspected COVID-19 virus infection: Code(s): Z20.828 - Contact with and (suspected) exposure to other viral communicable diseases Status: Ruled-out Assessment and Plan: COVID-19 testing negative. (4) Anemia: Qualifiers: Anemia type: iron deficiency Iron deficiency anemia type: unspecified iron deficiency Qualified Code(s): D50.9 - Iron deficiency anemia, unspecified Code(s): D64.9 - Anemia, unspecified Status: Acute Assessment and Plan: Iron studies consistent with iron deficiency. Probably result of poor intake. Will continue oral iron. Vitamin B12 and folate normal. No signs of bleeding. Hemoglobin stable at 7.6 today. Initial drop most likely dilutional. Will continue to follow. Only transfuse as needed. (5) Hypokalemia: Code(s): E87.6 - Hypokalemia Status: Acute Assessment and Plan: Potassium low at 2.9 on 11/12/2019 with oral replacement given. Potassium still low today at 3.3 with oral replacement increased. Will continue to monitor a
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
--- NOTE | 2019-11-22 18:07 | P.PNPL_ITS ---
Progress Note: A&P Assessment and Plan (1) Tubercular lesion of lung: Code(s): A15.0 - Tuberculosis of lung Status: Acute Assessment and Plan: CT scan very suspcious for TB in light of HIV and possible AIDS. Her Quantiferon Gold is negative, making it unlikely that she has TB, however cold have other mycobacterial infections. . - sputum for AFB negative one specimen, may not be able to get more good phyllis lity to evaluate for AFB. - on Ceftriaxone day #4 and Azithromycin day #10, per Dr. Prince. - most likely, she will need a bronch with BAL for this reason as well as to r/o other opportunistic infections - should should remain in droplet precautions for TB until definitively rule out. (2) HIV (human immunodeficiency virus infection): Qualifiers: HIV symptom status: symptomatic Qualified Code(s): B20 - Human immunodeficiency virus [HIV] disease Code(s): B20 - Human immunodeficiency virus [HIV] disease Status: Acute Assessment and Plan: HIV DNA PCR is positive, and she is being followed by Dr Prince. She has (+) HIV 1&2 antibody and p24 antigen. She appears to have AIDS defining illness with severe pneumonia, encephalopathy, wasting, candidiasis on her mouth. She will eventually start antiretroviral therapy. Subjective Date/time seen: 11/22/19 18:07 Interval history: This 39 yo female is seen for pulmonary interstitial changes on chest CT, possible TB. She is in a negative pressure room. Still in denial about HIV Status. She denies hempotysis. One of three sputum samples are neg ative for AFB, however her samples are poor quality. Her sputum samples are very unreliable as she is mostly giving saliva samples. We may not be able to get 3 negative sputums for TB, and doing a bronch with BAL may be the most efficient way to obtain specimens. She has AIDS, has severe opportunistic lung infection, and needs a proper diagnosis of her lung pathology. She will remain in droplet precautions for TB until active TB ruled out. She continues to act irrationally, smears food on her hands, wipes the mess all over everything. She tells me that she does not trust anyone, says she does not believe me when I tell her she has AIDS and that she may have tuberculosis. Review of Systems Review of Systems: All systems reviewed & are unremarkable except as noted in HPI and below Exam Narrative: Exam Narrative: cachectic Const: General: comfortable, no acute distress and ill appearing Nutritional Appearance: cachectic Limitations: altered mental status (flat affect, poor historian, poor memory) HENMT: Head: normal to inspection Ears: hearing grossly normal bilaterally Mouth: Yes moist mucous membranes abnormal ( thick White coating over all o ral membranes) Other: Abnormal swallowing; does retain food and liquids in the oral cavity after swallowing even with passing the swallow testing. Eyes: General: appearance normal, both eyes and all related structures Neck: Neck: supple and no JVD Lymphatic: lymphadenopathy Chest: Chest palpation & inspection: normal inspection of the chest Other: Few crackles both posterior lung leach, more pronounced in the bases. Resp: Auscultation: rales (minimal in bases posteriorly) and diminished lung sounds Cardio: Rate: regular rate Rhythm: regular rhythm Heart sounds: S1 normal heart sound present, S2 normal heart sound present, no gallops and no murmurs
[2019-11-22 18:34] LABS: HIV 1 2 Ag Ab 4th Gen w Rflxs Reactive (Non-reactive); HIV 1 Ab Chg Test Yes; HIV 1 Antibody Positive (Negative); HIV 2 Ab Chg Test Yes; HIV 2 Antibody Negative (Negative)
[2019-11-23] VITALS (9 sets, daily range): BP systolic 100–149; BP diastolic 67–79; PULSE 83–98; RESP 16–20; TEMP 36.7–38.1; O2SAT 95–99
[2019-11-23] MEDS: POTASSIUM CHLORIDE 20 MEQ TABLET.ER 40 MEQ PO (10:31)
[2019-11-23] MEDS: FAMOTIDINE 20 MG/2 ML VIAL IV PUSH ×2 (10:31→20:31)
[2019-11-23] MEDS: FERROUS SULFATE 324 MG TABLET PO (10:31)
[2019-11-23] MEDS: FLUCONAZOLE 100 MG TABLET PO (10:32)
[2019-11-23] MEDS: polyethylene glycoL 3350 17 GM POWD.PACK PO (10:32)
[2019-11-23] MEDS: MAGNESIUM OXIDE 400 MG TABLET PO (10:32)
--- NOTE | 2019-11-23 15:18 | PM.PNPUL ---
Progress Note: A&P Assessment and Plan (1) Tubercular lesion of lung: Code(s): A15.0 - Tuberculosis of lung Status: Acute Assessment and Plan: CT scan very suspcious for TB in light of HIV and possible AIDS. Her Quantiferon Gold is negative, making it unlikely that she has TB, however cold have other mycobacterial infections. . - sputum for AFB negative one specimen, may not be able to get more good quality to evaluate for AFB. - on Ceftriaxone day #4 and Azithromycin day #10, per Dr. Prince. - most likely, she will need a bronch with BAL for this reason as well as to r/o other opportunistic infections - should should remain in droplet precautions for TB until definitively rule out. (2) HIV (human immunodeficiency virus infection): Qualifiers: HIV symptom status: symptomatic Qualified Code(s): B20 - Human immunodeficiency virus [HIV] disease Code(s): B20 - Human immunodeficiency virus [HIV] disease Status: Acute Assessment and Plan: HIV DNA PCR is positive, and she is being followed by Dr Prince. She has (+) HIV 1&2 antibody and p24 antigen. She appears to have AIDS defining illness with severe pneumonia, encephalopathy, wasting, candidiasis on her mouth. She will eventually start antiretroviral therapy. Subjective Date/time seen: 11/23/19 15:18 39 yo female with AIDS and pneumonia; now on O2. She is not feeling worse, continues to spit in an emesis bag. Review of Systems Review of Systems: All systems reviewed & are unremarkable except as noted in HPI and below Exam Narrative: Exam Narrative: cachectic Const: General: comfortable, no acute distress and ill appearing Nutritional Appearance: cachectic Limitations: altered mental status (flat affect, poor historian, poor memory) HENMT: Head: normal to inspection Ears: hearing grossly normal bilaterally Mouth: Yes moist mucous membranes abnormal ( thick White coating over all oral membranes) Other: Abnormal swallowing; does retain food and liquids in the oral cavity after swallowing even with passing the swallow testing. Eyes: General: appearance normal, both eyes and all related structures Neck: Neck: supple and no JVD Lymphatic: lymphadenopathy Chest: Chest palpation & inspection: normal inspection of the chest Other: Few crackles both posterior lung leach, more pronounced in the bases. Resp: Auscultation: rales (minimal in bases posteriorly) and diminished lung sounds Cardio: Rate: regular rate Rhythm: regular rhythm Heart sounds: S1 normal heart sound present, S2 normal heart sound present, no gallops and no murmurs GI: Inspection: scaphoid Auscultation: normal bowel sounds and Hypoactive bowel sounds present Skin: General skin exam: normal color and no rashes or lesions noted Neuro: Speech: normal speech Extrem: General: no pedal edema, no edema and no pedal edema Psych: Affect: No normal affect (flat affect ) Objective Data Vital Signs Vital Signs: Vital Signs - 24 hr 11/22/19 22:00 11/23/19 02:00 11/23/19 06:00 Temperature 38.2 C H 36.7 C 37.3 C Pulse Rate 98 93 83 Respiratory Rate 20 20 18 Blood Pressure 116/77 104/70 115/77 Pulse Oximetry 100 99 98 11/23/19 10:00 11/23/19 12:36 Temperature 36.9 C Pulse Rate 94 Respiratory Rate 16 Blood Pressure 100/67 Pulse Oximetry 96 97 Intake/Output Intake/Output: Intake & Output 11/20/19 11/21/19 11/22/19 11/23/19 23:59 23:59 23:59 23:59 Intake Total 1620 1760 710 220 Output Total 300 Balance 1620 1760 410 220 Meds/Results Medications: Active Medications Generic Name Dose Route Start Last Admin Trade Name Freq PRN Reason Stop Dose Admin Acetaminophen 650 mg 11/12/19 21:07 11/21/19 20:28 Tylenol Tablet PO 650 mg Q4H PRN Administration Mild Pain (1-3) or Fe
--- NOTE | 2019-11-23 15:56 | PM.IMPN ---
Progress Note: A&P Assessment and Plan (1) Pneumonia: Qualifiers: Laterality: bilateral Lung location: lower lobe of lung Pneumonia type: due to unspecified organism Qualified Code(s): J18.9 - Pneumonia, unspecified organism Code(s): J18.9 - Pneumonia, unspecified organism Status: Acute Assessment and Plan: 11/23/19 15:56 Date of Service: Admitted with altered mental status, pneumonia, acute renal failure. Still feels weak. Does still complain of chest pain with cough. Complains of shortness of breath. Reports still has some sputum with her. Feels weak. today repeat chest x-ray showed worsening pneumonia, since there there was a concerned patient may have aspiration pneumonia will stop Rocephin will start the patient Zosyn, also patient oxygen requirement is also increasing, patient does not cooperate and urinated on herself, Nursing reports patient has not been wanting to do anything for herself. Patient does not remember the address of her home or the telephone number or any contacts, however patient continued to cough to further evaluate patient had CTA of the chest, he did not show pulmonary emboli however patient has a significant interstitial lung disease will consult the sales team member further recommendation, patient has not had a BM and several days KUB showed no obstruction will give suppository will increase the patient oral intake, today patient is seen by sales team member, patient is HIV positive and sales team member suspect CT scan most likely indicates TB presentation, transferred the patient to negative pressure room, Patient was seen Dr. prince on 11/17 and further work up was ordered, stopped Zosyn and started on ceftriaxone and continued zithromax, patient does not provide detailed review of symptoms however feels little better not coughing as much, c/o constipation but does not eat much and does not want to take Miralax. patient 1st sputum TB is negative will need two additional sputum tests however today patient was seen sales team member is recommending bronchsopy to get better sample to r/o TB. today patient was seen Dr. Prince Quant. RNA pcr is negative and patient is taken off isolation, HIV patient CD 4 count is pending but with total lymphocyte count on admission of 240 suspect patient has AIDS and started patient on antiretroviral with Genvoya. will continue rocephin and patient completed zithromax, on 11/21 patient had BM, Coral Massey on 11/21 recommended 1 cost copy to rule out TB, today stats feeling better and patient more alert. Patient also spoke with 1 of her relatives and would not give us a contact number. Will discuss with assistant child care teacher for possible discharge planning and 1-2 days (2) Emphysema lung: Qualifiers: Emphysema type: unspecified Qualified Code(s): J43.9 - Emphysema, unspecified Code(s): J43.9 - Emphysema, unspecified Status: Acute Assessment and Plan: Bullous emphysematous changes seen on chest x-ray. Continue nebulizer treatments and Symbicort. Continue oxygen and wean as tolerated. May need home O2 evaluation when ready for discharge. (3) Suspected COVID-19 virus infection: Code(s): Z20.828 - Contact with and (suspected) exposure to other viral communicable diseases Status: Ruled-out Assessment and Plan: COVID-19 testing negative. (4) Anemia: Qualifiers: Anemia type: iron deficiency Iron deficiency anemia type: unspecified iron deficiency Qualified Code(s): D50.9 - Iron deficiency anemia, unspecified Code(s): D64.9 - Anemia, unspecified Status: Acute Assessment and Plan: Iron studies consistent with iron deficiency. Probably result of poor intake. Will continue oral iron. Vitamin B12 and folate normal. No signs of bleeding. Hemoglobin stable at 7.6 today. Initial drop most likely dilutional. Will continue to follow. Only transfuse as needed. (5) Hypokalemia:
[2019-11-23] MEDS: BISACODYL 5 MG TABLET EC PO (17:30)
[2019-11-23] MEDS: ACETAMINOPHEN 325 MG TABLET 650 MG PO (22:42)
[2019-11-24] VITALS (16 sets, daily range): BP systolic 99–119; BP diastolic 58–77; PULSE 66–94; RESP 16–20; TEMP 35.8–38.2; O2SAT 10–100
[2019-11-24] MEDS: FAMOTIDINE 20 MG/2 ML VIAL IV PUSH ×2 (08:02→22:26)
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
--- NOTE | 2019-11-24 11:53 | PC.NURSE ---
To GI Lab per stretcher, IV LT upper arm double lumen midline.
[2019-11-24] MEDS: LACTATED RINGERS 1,000 ML 150 ML IV CONT (12:04)
--- NOTE | 2019-11-24 12:10 | WPDPN ---
Objective Data Vital Signs Vital Signs: Vital Signs - 24 hr 11/23/19 12:36 11/23/19 14:00 11/23/19 16:00 Temperature 37.2 C Pulse Rate 98 Respiratory Rate 18 Blood Pressure 149/79 H Pulse Oximetry 97 97 95 11/23/19 22:00 11/23/19 22:42 11/23/19 23:41 Temperature 38.1 C H 38.1 C H 37.1 C Pulse Rate 89 Respiratory Rate 16 Blood Pressure 100/67 Pulse Oximetry 96 11/24/19 02:00 11/24/19 06:00 11/24/19 09:05 Temperature 36.9 C 36.9 C Pulse Rate 79 79 Respiratory Rate 16 16 Blood Pressure 102/70 99/66 L Pulse Oximetry 98 97 93 11/24/19 10:24 11/24/19 12:05 Temperature 37.1 C 38.2 C H Pulse Rate 79 88 Respiratory Rate 16 18 Blood Pressure 119/77 106/70 Pulse Oximetry 99 91 Intake/Output Intake/Output: Intake & Output 11/21/19 11/22/19 11/23/19 11/24/19 23:59 23:59 23:59 23:59 Intake Total 1760 710 590 150 Output Total 300 Balance 1760 410 590 150 Meds/Results Medications: Active Medications Generic Name Dose Route Start Last Admin Trade Name Freq PRN Reason Stop Dose Admin Acetaminophen 650 mg 11/12/19 21:07 11/23/19 22:42 Tylenol Tablet PO 650 mg Q4H PRN Administration Mild Pain (1-3) or Fever Albuterol 2 puff 11/11/19 20:13 Proventil Hfa INHALATION QIDRT PRN Shortness Of Breath Benzonatate 100 mg 11/15/19 12:35 11/17/19 09:34 Tessalon Perles PO 100 mg Q8H PRN Administration cough Bisacodyl 5 mg 11/21/19 17:38 11/23/19 17:30 Dulcolax Tab PO 5 mg DAILY PRN Administration Constipation Docusate Sodium 100 mg 11/12/19 15:22 11/22/19 00:16 Colace Capsule PO 100 mg Q12H PRN Administration Constipation Famotidine 20 mg 11/11/19 21:00 11/24/19 08:02 Pepcid Iv IV PUSH 20 mg Q12HR ALBERT Administration Ferrous Sulfate 324 mg 11/12/19 09:45 11/23/19 10:31 Ferrous Sulfate PO 324 mg DAILY ALBERT Administration Fluconazole 100 mg 11/18/19 14:40 11/23/19 10:32 Diflucan Tablet PO 100 mg QAM ALBERT Administration Guaifenesin 1,200 mg 11/13/19 11:40 11/23/19 20:31 Mucinex 12 Hr Tab PO 1,200 mg Q12HR ALBERT Administration Ceftriaxone Sodium/Dextrose 1 gm in 50 mls @ 100 mls/hr 11/18/19 14:35 11/24/19 09:00 Rocephin 1 Gm/D5w 50 Ml IVPB Infused QAM ALBERT Infusion Lactated Ringer's 1,000 mls @ 150 mls/hr 11/24/19 07:35 11/24/19 12:04 Lr - Lactated Ringers Iv IV CONT 150 mls/hr .Q6H40M ALBERT Administration Lidocaine HCl 0.3 ml 11/24/19 07:33 Xylocaine 2% Local Inj INTRADERM ONCE PRN to numb area Magnesium Oxide 400 mg 11/15/19 09:00 11/23/19 10:32 Mag-Ox PO 400 mg QAM ALBERT Administration Non-Formulary Medication 150 mg 11/23/19 08:00 Genvoya PO 12/23/19 08:01 DAILY@0800 [facility] Ondansetron HCl 4 mg 11/11/19 17:31 11/17/19 04:43 Zofran Inj IV PUSH 4 mg Q4H PRN Administration Nausea Polyethylene Glycol 17 gm 11/14/19 15:15 11/23/19 10:32 Miralax PO 17 gm QAM [facility] Administration Potassium Chloride 40 meq 11/14/19 08:00 11/23/19 10:31 Kcl Tablet PO 40 meq DAILY@0800 ALBERT Administration Radiology Results: ITS Impressions Head CT 11/11/19 16:05 IMPRESSION: 1. Normal head CT. Chest X-Ray 11/15/19 10:04 Impression: 1: Progression of bilateral pneumonia, predominantly basilar, superimposed on emphysema. Chest CTA 11/15/19 16:41 IMPRESSION: 1. No pulmonary emboli. 2. Multisegmental bibasilar consolidation, likely bacterial pneumonia. 3. Severe interstitial lung disease with large regions cavitation and honeycombing. If patient does not have known diagnosis, recommend pulmonary consult. 4. Possible subcarinal lymphadenopathy. 5. Anasarca. Abdomen X-Ray 11/16/19 13:55 IMPRESSION: 1: No acute abdominal abnormality identified. Modified Barium Swallow 11/17/19 14:36 IMPRESSION: 1: Normal swallow without penetration or aspiration. 2: Pl
--- NOTE | 2019-11-24 14:23 | PC.NURSE ---
Patient being transferred to IMU from GI Lab. Report given via phone to EUGENE Youssef. Belongings and medications taken to IMU nurses station.
--- NOTE | 2019-11-24 14:48 | SUR.PHASEII ---
SPECIMENS BROUGHT DOWN TO LAB BY JESSY Stone RN
--- NOTE | 2019-11-24 14:51 | SUR.OPER ---
Procedure end at 1251, CAD INTERN at bedside monitoring patient. Oral airway was removed and placed on mask. Patient unable to keep stats up without positive pressure. Dr. Mera called and made aware at 1308. Dr. Massey and Dr. Mera both at bedside at 1310. Respiratory called and Bipap ordered by Dr. Massey. 1313 Milly wood inspector updated. Followed up with respiratory status at 1320. Respiratory Romi De Guzman at bedside 1333. CAD INTERN remains at beside monitoring patient along with nursing and respiratory. Dr. Adan called at 1400 by EUGENE Atkins. Patient remained in procedure room until bed available. See charge nurse nursing note regrading transfer to IMU.
[2019-11-24] MEDS: FERROUS SULFATE 324 MG TABLET PO (14:57)
[2019-11-24] MEDS: POTASSIUM CHLORIDE 20 MEQ TABLET.ER 40 MEQ PO (14:57)
[2019-11-24] MEDS: FLUCONAZOLE 100 MG TABLET PO (14:58)
[2019-11-24] MEDS: MAGNESIUM OXIDE 400 MG TABLET PO (14:58)
[2019-11-24 15:46] LABS: Appearance Bronchial Fluid Hazy; Color Bronchial Fluid Colorless; Lymphocytes Bronchial Fluid 26 %; Neutrophils Bronchial Fluid 74 %; Source Bronchial Fluid Bronchial Lavage
[2019-11-24 15:52] LABS: Eosinophils Bronchial Fluid 0 %; Macrophages Bronchial Fluid 0; Monocytes Bronchial Fluid 0 %; Other Cells Bronchial Fluid 0 %
--- NOTE | 2019-11-24 16:42 | PM.IMPN ---
Progress Note: A&P Assessment and Plan (1) Pneumonia: Qualifiers: Laterality: bilateral Lung location: lower lobe of lung Pneumonia type: due to unspecified organism Qualified Code(s): J18.9 - Pneumonia, unspecified organism Code(s): J18.9 - Pneumonia, unspecified organism Status: Acute Assessment and Plan: 11/24/19 16:42 Date of Service: Admitted with altered mental status, pneumonia, acute renal failure. Still feels weak. Does still complain of chest pain with cough. Complains of shortness of breath. Reports still has some sputum with her. Feels weak. today repeat chest x-ray showed worsening pneumonia, since there there was a concerned patient may have aspiration pneumonia will stop Rocephin will start the patient Zosyn, also patient oxygen requirement is also increasing, patient does not cooperate and urinated on herself, Nursing reports patient has not been wanting to do anything for herself. Patient does not remember the address of her home or the telephone number or any contacts, however patient continued to cough to further evaluate patient had CTA of the chest, he did not show pulmonary emboli however patient has a significant interstitial lung disease will consult the senior javascript engineer further recommendation, patient has not had a BM and several days KUB showed no obstruction will give suppository will increase the patient oral intake, today patient is seen by senior javascript engineer, patient is HIV positive and senior javascript engineer suspect CT scan most likely indicates TB presentation, transferred the patient to negative pressure room, Patient was seen Dr. prince on 11/17 and further work up was ordered, stopped Zosyn and started on ceftriaxone and continued zithromax, patient does not provide detailed review of symptoms however feels little better not coughing as much, c/o constipation but does not eat much and does not want to take Miralax. patient 1st sputum TB is negative will need two additional sputum tests however today patient was seen senior javascript engineer is recommending bronchsopy to get better sample to r/o TB. today patient was seen Dr. Prince Quant. RNA pcr is negative and patient is taken off isolation, HIV patient CD 4 count is pending but with total lymphocyte count on admission of 240 suspect patient has AIDS and started patient on antiretroviral with Genvoya. will continue rocephin and patient completed zithromax, on 11/21 patient had BM, D/W Dr. Massey on 11/21 recommended bronchoscopy to rule out TB, stats feeling better and patient more alert. Patient also spoke with 1 of her relatives and would not give us a contact number. Will discuss with daycare manager for possible discharge planning and 1-2 days, today patient states, today patient is scheduled for bronchoscopy, states feeling better will follow-up after the procedure (2) Emphysema lung: Qualifiers: Emphysema type: unspecified Qualified Code(s): J43.9 - Emphysema, unspecified Code(s): J43.9 - Emphysema, unspecified Status: Acute Assessment and Plan: Bullous emphysematous changes seen on chest x-ray. Continue nebulizer treatments and Symbicort. Continue oxygen and wean as tolerated. May need home O2 evaluation when ready for discharge. (3) Suspected COVID-19 virus infection: Code(s): Z20.828 - Contact with and (suspected) exposure to other viral communicable diseases Status: Ruled-out Assessment and Plan: COVID-19 testing negative. (4) Anemia: Qualifiers: Anemia type: iron deficiency Iron deficiency anemia type: unspecified iron deficiency Qualified Code(s): D50.9 - Iron deficiency anemia, unspecified Code(s): D64.9 - Anemia, unspecified Status: Acute Assessment and Plan: Iron studies consistent with iron deficiency. Probably result of poor intake. Will continue oral iron. Vitamin B12 and folate normal. No signs of bleeding. Hemoglobin stable at 7.6 today. Initi
--- NOTE | 2019-11-24 17:34 | PM.PNPUL ---
Progress Note: A&P Assessment and Plan (1) Pneumonia: Qualifiers: Laterality: bilateral Lung location: lower lobe of lung Pneumonia type: due to unspecified organism Qualified Code(s): J18.9 - Pneumonia, unspecified organism Code(s): J18.9 - Pneumonia, unspecified organism Status: Acute Assessment and Plan: CT scan suggestive of TB in light of HIV/AIDS, Quantiferon Gold is negative, making it unlikely that she has TB, resutlos pending from bronchoscopy. . - on Ceftriaxone day #[address] Prince. - completed bronch today and improved with lower O2 requirement. Await results of microbiologic studies. (2) HIV (human immunodeficiency virus infection): Qualifiers: HIV symptom status: symptomatic Qualified Code(s): B20 - Human immunodeficiency virus [HIV] disease Code(s): B20 - Human immunodeficiency virus [HIV] disease Status: Acute Assessment and Plan: HIV DNA PCR is positive, and she is being followed by Dr Prince. She has (+) HIV 1&2 antibody and p24 antigen. She appears to have AIDS defining illness with severe pneumonia, encephalopathy, wasting, candidiasis on her mouth. She will eventually start antiretroviral therapy. Subjective Date/time seen: 11/24/19 17:34 She had bronch earlier today, had a difficult time with desaturation afterwards, so PAP therapy was started. When she was fully alert, she would not use it, so was changed to nasal cannula 6-8L/min. improved. Review of Systems Review of Systems: All systems reviewed & are unremarkable except as noted in HPI and below Exam Narrative: Exam Narrative: cachectic Const: General: comfortable, no acute distress and ill appearing Nutritional Appearance: cachectic Limitations: altered mental status (flat affect, poor historian, poor memory) HENMT: Head: normal to inspection Ears: hearing grossly normal bilaterally Mouth: Yes moist mucous membranes abnormal ( thick White coating over all oral membranes) Eyes: General: appearance normal, both eyes and all related structures Neck: Neck: supple and no JVD Lymphatic: lymphadenopathy Chest: Chest palpation & inspection: normal inspection of the chest Other: Few crackles both posterior lung leach Resp: Auscultation: rales (minimal in bases posteriorly) and diminished lung sounds Cardio: Rate: regular rate Rhythm: regular rhythm Heart sounds: S1 normal heart sound present, S2 normal heart sound present, no gallops and no murmurs GI: Inspection: scaphoid Auscultation: normal bowel sounds and Hypoactive bowel sounds present Skin: General skin exam: normal color and no rashes or lesions noted Neuro: Speech: normal speech Extrem: General: no pedal edema, no edema and no pedal edema Psych: Affect: No normal affect (flat affect ) Objective Data Vital Signs Vital Signs: Vital Signs - 24 hr 11/23/19 22:00 11/23/19 22:42 11/23/19 23:41 Temperature 38.1 C H 38.1 C H 37.1 C Pulse Rate 89 Respiratory Rate 16 Blood Pressure 100/67 Pulse Oximetry 96 11/24/19 02:00 11/24/19 06:00 11/24/19 09:05 Temperature 36.9 C 36.9 C Pulse Rate 79 79 Respiratory Rate 16 16 Blood Pressure 102/70 99/66 L Pulse Oximetry 98 97 93 11/24/19 10:24 11/24/19 12:05 11/24/19 13:52 Temperature 37.1 C 38.2 C H 37.3 C Pulse Rate 79 88 82 Respiratory Rate 16 18 20 Blood Pressure 119/77 106/70 104/73 Pulse Oximetry 99 91 93 11/24/19 14:02 11/24/19 14:12 11/24/19 14:22 Temperature Pulse Rate 66 77 79 Respiratory Rate 18 18 20 Blood Pressure 100/58 L 103/60 105/77 Pulse Oximetry 91 96 99 11/24/19 14:36 11/24/19 16:00 11/24/19 16:05 Temperature 35.8 C L Pulse Rate 90 90 94 Respiratory Rate 18 Blood Pressure 103/71 Pulse Oximetry 100 Intake/Output Intake/Output: Intake & Output 11/21/19
--- NOTE | 2019-11-24 18:06 | PC.NURSE ---
This patient, Tracey Silverio, was received from [facility] on 11/24/19 at 1433. Report received from Mary GI data modeling architect and Jennyfer Diallo RN on the patient. Personal belongings list checked and signed. Patient/family oriented to unit policies and routines
[2019-11-24 20:29] LABS: HIV 1 RNA PCR 5.92 Log cps/mL; HIV 1 RNA PCR 829000 Copies/mL
[2019-11-25] VITALS (12 sets, daily range): BP systolic 103–112; BP diastolic 69–76; PULSE 57–100; RESP 16–18; TEMP 36–38.3; O2SAT 91–100
--- NOTE | 2019-11-25 09:09 | WPDANESPN ---
Anes - Prog Note Post-Op Date/Time: 11/25/19 09:09 Cardiovascular status: normal Respiratory status: normal Airway patency: baseline Mental status: baseline Post-Op hydration status: normal Vital Signs: Last Vital Signs Temp 36.6 C 11/25/19 08:00 Pulse 60 11/25/19 08:00 Resp 16 11/25/19 08:00 BP 103/69 11/25/19 08:00 Pulse Ox 100 11/25/19 08:00 I/O: Intake & Output 11/24/19 11/25/19 11/25/19 23:59 07:59 15:59 Intake Total 490 380 Balance 490 380 Laboratory Tests 11/21/19 05:59 11/21/19 05:59 11/19/19 11/24/19 11/24/19 06:46 14:03 14:04 Bronch Specimen Source Bronchial lavage Bronchial Fluid Color Colorless Bronchial Fluid Appearance Hazy Bronchial Neutrophils 74 Bronchial Lymphocytes 26 Bronchial Monocytes 0 Bronchial Eosinophils 0 Bronchial Macrophages 0 Bronchial Other Cells 0 HIV-1 RNA logcopies/mL 5.92 H HIV-1 RNA PCR copies/ml [id number] H Pneumocystis carinii Ag Pending Resp Virus Cult Rapid 11/24/19 14:04 Bronch Specimen Source Bronchial Fluid Color Bronchial Fluid Appearance Bronchial Neutrophils Bronchial Lymphocytes Bronchial Monocytes Bronchial Eosinophils Bronchial Macrophages Bronchial Other Cells HIV-1 RNA logcopies/mL HIV-1 RNA PCR copies/ml Pneumocystis carinii Ag Resp Virus Cult Rapid Pending Post-procedural complaints: none Patient Feedback: Patient satisfied with anesthetic care.
[2019-11-25 09:33] LABS: Hematocrit 26.5 % (37.0-47.0); Hemoglobin 8.4 g/dL (12.0-15.0); Immature Granulocyte Absolute 0.01 K/mm3 (0.00-0.031); Immature Granulocyte Percent A 0.4 % (0-0.5); Lymphocytes Absolute Auto 0.53 K/mm3 (0.9-3.2); Lymphocytes Percent Auto 22.8 % (18.3-44.2); Mean Corpuscular HGB Conc 31.7 g/dl (32-36); Mean Corpuscular Hemoglobin 28.4 pg (26-34); Mean Corpuscular Volume 89.5 fl (80-100); Mean Platelet Volume 9.9 fl (7.4-10.4); Monocytes Absolute Auto 0.3 K/mm3 (0.1-0.6); Monocytes Percent Auto 11.6 % (2.6-8.5); Neutrophils Absolute Auto 1.5 K/mm3 (1.3-6.7); Neutrophils Percent Auto 65.2 % (45.5-73.1); Platelet Count Result 379 k/mm3 (150-375); Red Blood Count 2.96 M/mm3 (4.2-5.4); Red Cell Distribution Width 14.3 % (11.5-14.5); White Blood Count 2.3 K/mm3 (4.5-10.0)
[2019-11-25 09:45] LABS: Alanine Aminotransferase 22 U/L (4-35); Albumin Level 2.5 g/dL (3.5-5.1); Alkaline Phosphatase 87 U/L (38-126); Aspartate Amino Transferase 39 U/L (14-36); Bilirubin,Total 0.2 mg/dL (0.2-1.3); Blood Urea Nitrogen 19 mg/dL (7-17); Calcium 8.6 mg/dL (8.4-10.2); Carbon Dioxide 27 mmol/L (22-30); Chloride 101 mmol/L (98-107); Estimated CRCL calculation 72 ml/min; Estimated Glomerular Filt Rate > 60; Glucose 118 mg/dL (65-105); Magnesium 1.7 mg/dL (1.6-2.3); Sodium 131 mmol/L (137-145)
[2019-11-25] MEDS: BISACODYL 5 MG TABLET EC PO (10:39)
[2019-11-25] MEDS: FAMOTIDINE 20 MG/2 ML VIAL IV PUSH ×2 (10:40→21:43)
--- NOTE | 2019-11-25 11:38 | WPDINFPN2 ---
Progress Note: A&P Assessment and Plan (1) HIV (human immunodeficiency virus infection): Qualifiers: HIV symptom status: symptomatic Qualified Code(s): B20 - Human immunodeficiency virus [HIV] disease Code(s): B20 - Human immunodeficiency virus [HIV] disease Status: Acute Assessment and Plan: 1. HIV infection, with suspected AIDS (on basis of total lymphocyte count = 240; CD4 panel is still pending). VL >800 K 2. Lung infiltrates, POD # 1 bronch, micro studies in process for PJP and Mycobacteria. REC Stop Ctx # 7 after today and begin cefdinir x 7 additional days (relatively long, due to immunosuppression). Now off Azithro (but will need suppression with 1200 mg weekly if CD4 < 50). Due to inpatient pharmacy formulary restrictions, cannot begin Genvoya (fixed dose combination, one po daily) until discharge. Subjective Date/time seen: 11/25/19 11:38 Interval history: no complaints Exam Narrative: Exam Narrative: afebrile Const: General: no acute distress Eyes: General: appearance normal, both eyes and all related structures Resp: Effort & Inspection: normal respiratory effort Auscultation: clear to auscultation bilaterally Cardio: Rate: regular rate Rhythm: regular rhythm Heart sounds: no gallops and no murmurs GI: Inspection: non-distended GI Palp: Yes Soft to palpation, No Tenderness to palpation present (GI) and No Guarding due to palpation present (GI) Skin: General skin exam: normal color and no rashes or lesions noted Objective Data Vital Signs Vital Signs: Vital Signs - 24 hr 11/24/19 12:05 11/24/19 13:52 11/24/19 14:02 Temperature 38.2 C H 37.3 C Pulse Rate 88 82 66 Respiratory Rate 18 20 18 Blood Pressure 106/70 104/73 100/58 L Pulse Oximetry 91 93 91 11/24/19 14:12 11/24/19 14:22 11/24/19 14:36 Temperature Pulse Rate 77 79 90 Respiratory Rate 18 20 Blood Pressure 103/60 105/77 Pulse Oximetry 96 99 11/24/19 16:00 11/24/19 16:05 11/24/19 18:00 Temperature 35.8 C L Pulse Rate 90 94 85 Respiratory Rate 18 Blood Pressure 103/71 Pulse Oximetry 100 11/24/19 20:00 11/24/19 22:00 11/24/19 23:49 Temperature 36.1 C L 36.4 C Pulse Rate 78 80 90 Respiratory Rate 18 20 Blood Pressure 103/66 99/68 L Pulse Oximetry 10 L 98 11/25/19 02:00 11/25/19 04:00 11/25/19 06:00 Temperature 36.6 C Pulse Rate 72 67 61 Respiratory Rate 18 Blood Pressure 104/74 Pulse Oximetry 100 11/25/19 08:00 11/25/19 09:51 11/25/19 10:28 Temperature 36.6 C Pulse Rate 57 L Respiratory Rate 16 Blood Pressure 103/69 Pulse Oximetry 100 99 97 Intake/Output Intake/Output: Intake & Output 11/22/19 11/23/19 11/24/19 11/25/19 23:59 23:59 23:59 23:59 Intake Total 710 590 880 380 Output Total 300 Balance 410 590 880 380 Meds/Results Medications: Active Medications Generic Name Dose Route Start Last Admin Trade Name Freq PRN Reason Stop Dose Admin Acetaminophen 650 mg 11/12/19 21:07 11/23/19 22:42 Tylenol Tablet PO 650 mg Q4H PRN Administration Mild Pain (1-3) or Fever Albuterol 2 puff 11/11/19 20:13 Proventil Hfa INHALATION QIDRT PRN Shortness Of Breath Benzonatate 100 mg 11/15/19 12:35 11/17/19 09:34 Tessalon Perles PO 100 mg Q8H PRN Administration cough Bisacodyl 5 mg 11/21/19 17:38 11/25/19 10:39 Dulcolax Tab PO 5 mg DAILY PRN Administration Constipation Docusate Sodium 100 mg 11/12/19 15:22 11/22/19 00:16 Colace Capsule PO 100 mg Q12H PRN Administration Constipation Famotidine 20 mg 11/11/19 21:00 11/25/19 10:40 Pepcid Iv IV PUSH 20 mg Q12HR ALBERT Administration Ferrous Sulfate 324 mg 11/12/19 09:45 11/24/19 14:57 Ferrous Sulfate PO 324 mg DAILY ALBERT Administration Fluconazole 100 mg 11/18/19 14:40 11/24/19 14:58 Diflucan Tablet PO 100 mg QAM ALBERT Administration Guaifenesin 1,200 mg 11/13/19 11:40
[2019-11-25] MEDS: MAGNESIUM OXIDE 400 MG TABLET PO (11:58)
[2019-11-25] MEDS: POTASSIUM CHLORIDE 20 MEQ TABLET.ER 40 MEQ PO (11:58)
[2019-11-25] MEDS: FLUCONAZOLE 100 MG TABLET PO (11:58)
[2019-11-25] MEDS: FERROUS SULFATE 324 MG TABLET PO (11:58)
--- NOTE | 2019-11-25 12:50 | PC.NURSE ---
This patient, Tracey Silverio, was transferred to [facility] on 11/25/19 at 1250. Personal belongings sent with patient. Report given to EUGENE Guthrie. Appropriate documentation sent with patient.
--- NOTE | 2019-11-25 12:57 | PC.NURSE ---
This patient, Tracey Silverio, was received from [[facility]U ] on 11/25/19 at 1257. Personal belongings list checked and signed. Patient/family oriented to unit policies and routines
--- NOTE | 2019-11-25 13:02 | PCNFU ---
Nutrition Follow-Up Complete: Inadequate Oral Intake as related to Pneumonia as evidenced by reported poor po intake on admission. Goal:adequate Intake of at least 50% of meals/supplements Patient is progressing towards goal.We will continue current goal. Pt current nutrition is Regular. Nutrition recommendation: Agree Last recorded weight is 43.1 kg. Bowel Motility:+Bm reported 11/22, patient states that she is constipated today. Labs Reviewed:Cr 0.6,BUN 19,Na 131,Alb 2.5 Meds Noted:Miralax,Mucinex,Mag Ox,Pepcid Additional Notes: I spoke with patient today-ordered her lunch meal consisting of chicken noodle soup, turkey,peaches, OJ and Ensure. She had a broch yesterday and was transferred to IMU. Refused to wear the Bipap. Plans for transfer back to Medical floor. Diet supplements are on her tray Ensure Enlive BID-providing 350 kcals and 20 gms protein. She requested strawberry flavor-noted. Monitoring: RD will monitor every 5 days.
--- NOTE | 2019-11-25 13:15 | PM.IMPN ---
Progress Note: A&P Assessment and Plan (1) Pneumonia: Qualifiers: Laterality: bilateral Lung location: lower lobe of lung Pneumonia type: due to unspecified organism Qualified Code(s): J18.9 - Pneumonia, unspecified organism Code(s): J18.9 - Pneumonia, unspecified organism Status: Acute Assessment and Plan: 11/25/19 13:15 Date of Service: Admitted with altered mental status, pneumonia, acute renal failure. Still feels weak. Does still complain of chest pain with cough. Complains of shortness of breath. Reports still has some sputum with her. Feels weak. today repeat chest x-ray showed worsening pneumonia, since there there was a concerned patient may have aspiration pneumonia will stop Rocephin will start the patient Zosyn, also patient oxygen requirement is also increasing, patient does not cooperate and urinated on herself, Nursing reports patient has not been wanting to do anything for herself. Patient does not remember the address of her home or the telephone number or any contacts, however patient continued to cough to further evaluate patient had CTA of the chest, he did not show pulmonary emboli however patient has a significant interstitial lung disease will consult the community outreach specialist further recommendation, patient has not had a BM and several days KUB showed no obstruction will give suppository will increase the patient oral intake, today patient is seen by community outreach specialist, patient is HIV positive and community outreach specialist suspect CT scan most likely indicates TB presentation, transferred the patient to negative pressure room, Patient was seen Dr. prince on 11/17 and further work up was ordered, stopped Zosyn and started on ceftriaxone and continued zithromax, patient does not provide detailed review of symptoms however feels little better not coughing as much, c/o constipation but does not eat much and does not want to take Miralax. patient 1st sputum TB is negative will need two additional sputum tests however today patient was seen community outreach specialist is recommending bronchsopy to get better sample to r/o TB. today patient was seen Dr. Prince Quant. RNA pcr is negative and patient is taken off isolation, HIV patient CD 4 count is pending but with total lymphocyte count on admission of 240 suspect patient has AIDS and started patient on antiretroviral with Genvoya. will continue rocephin and patient completed zithromax, on 11/21 patient had BM, D/W Dr. Massey on 11/21 recommended bronchoscopy to rule out TB, stats feeling better and patient more alert. Patient also spoke with 1 of her relatives and would not give us a contact number. Will discuss with director critical care for possible discharge planning and 1-2 days, on 11/23 patient had bronchoscopy, samples were collected for pneumocystic carinii as well as other mycobacteria, today patient is feeling better, patient was seen by Dr. prince suspect most likely patient has AIDS unable to start Genvoya it is not available in the pharmacy will be started as outpatient, patient is off ceftriaxone and azithromycin, started the patient on cefdinir, if the patient's CD4 count is less than 50 patient will need 1200 mg of azithromycin Q weekly for suppression, today patient, states feeling better will follow-up on the labs. (2) Emphysema lung: Qualifiers: Emphysema type: unspecified Qualified Code(s): J43.9 - Emphysema, unspecified Code(s): J43.9 - Emphysema, unspecified Status: Acute Assessment and Plan: Bullous emphysematous changes seen on chest x-ray. Continue nebulizer treatments and Symbicort. Continue oxygen and wean as tolerated. May need home O2 evaluation when ready for discharge. (3) Suspected COVID-19 virus infection: Code(s): Z20.828 - Contact with and (suspected) exposure to other viral communicable diseases Status: Ruled-out Assessment and Plan: COVID-19 testing negative. (4) Anemia: Qualifiers: Anem
--- NOTE | 2019-11-25 19:59 | PM.PNPUL ---
Progress Note: A&P Assessment and Plan (1) Pneumonia: Qualifiers: Laterality: bilateral Lung location: lower lobe of lung Pneumonia type: due to unspecified organism Qualified Code(s): J18.9 - Pneumonia, unspecified organism Code(s): J18.9 - Pneumonia, unspecified organism Status: Acute Assessment and Plan: CT scan suggested TB in light of HIV and possible AIDS however Quantiferon Gold is negative, making it unlikely that she has TB, and the bronch specimens are negative for AFB, fungus and bacterial on smear and cultures, so far. - on oral cefdinir starting tomorrow, completed ceftriaxone today per Dr. Prince for pneumonia. (2) HIV (human immunodeficiency virus infection): Qualifiers: HIV symptom status: symptomatic Qualified Code(s): B20 - Human immunodeficiency virus [HIV] disease Code(s): B20 - Human immunodeficiency virus [HIV] disease Status: Acute Assessment and Plan: HIV DNA PCR is positive, and she is being followed by Dr Prince. She has (+) HIV 1&2 antibody and p24 antigen. She appears to have AIDS-efining illness with severe pneumonia as well as encephalopathy, wasting, candidiasis on her mouth. She will eventually start antiretroviral therapy however the medication of choice Genvoya is not on our formulary. Subjective Date/time seen: 11/25/19 19:59 Room 324 This 39 yo female is seen for pulmonary interstitial changes on chest CT, had bronchoscopy yesterday, cultures so far negative for AFB, fungus, bacteria and PCP is negative. She is coughing with little expectoration of white secretions. Denies hemoptysis. She has AIDS, has severe opportunistic lung infection, and needs a proper diagnosis of her lung pathology. She has a low grade fever 100 F today, expected after a bronchoscopy. RN says that she is acting in undesirable ways, trying to evacuate her bowels manually. She has been given a bowel regimen. Review of Systems Review of Systems: All systems reviewed & are unremarkable except as noted in HPI and below Exam Narrative: Exam Narrative: cachectic, alert, watching TV. Const: General: comfortable, no acute distress and ill appearing Nutritional Appearance: cachectic Limitations: altered mental status (flat affect, poor historian, poor memory) HENMT: Head: normal to inspection Ears: hearing grossly normal bilaterally Mouth: Yes moist mucous membranes abnormal ( thick White coating over all oral membranes) Eyes: General: appearance normal, both eyes and all related structures Neck: Neck: supple and no JVD Lymphatic: lymphadenopathy Chest: Chest palpation & inspection: normal inspection of the chest Other: Few crackles both posterior lung leach, more pronounced in the bases. Resp: Auscultation: rales (minimal in bases posteriorly) and diminished lung sounds Cardio: Rate: regular rate Rhythm: regular rhythm Heart sounds: S1 normal heart sound present, S2 normal heart sound present, no gallops and no murmurs GI: Inspection: scaphoid Auscultation: normal bowel sounds and Hypoactive bowel sounds present Skin: General skin exam: normal color and no rashes or lesions noted Neuro: Speech: normal speech Extrem: General: no pedal edema, no edema and no pedal edema Psych: Affect: No normal affect (flat affect ) Objective Data Vital Signs Vital Signs: Vital Signs - 24 hr 11/24/19 20:00 11/24/19 22:00 11/24/19 23:49 Temperature 36.1 C L 36.4 C Pulse Rate 78 80 90 Respiratory Rate 18 20 Blood Pressure 103/66 99/68 L Pulse Oximetry 10 L 98 11/25/19 02:00 11/25/19 04:00 11/25/19 06:00 Temperature 36.6 C Pulse Rate 72 67 61 Respiratory Rate 18 Blood Pressure 104/74 Pulse Oximetry 100 11/25/19 08:00 11/25/19 09:51 11/25/19 10:28 Temperature 36.6 C Pulse Rate 57 L Respir
[2019-11-25] MEDS: ACETAMINOPHEN 325 MG TABLET 650 MG PO (21:44)
[2019-11-26] VITALS (13 sets, daily range): BP systolic 92–103; BP diastolic 63–78; PULSE 75–120; RESP 16–18; TEMP 36.7–39; O2SAT 99–100
[2019-11-26 09:10] LABS: Basophils Percent Auto 0.6 % (0.2-1.2); Eosinophils Percent Auto 0.3 % (0-4.4); Hemoglobin 8.5 g/dL (12.0-15.0); Immature Granulocyte Absolute 0.01 K/mm3 (0.00-0.031); Immature Granulocyte Percent A 0.3 % (0-0.5); Lymphocytes Percent Auto 14.2 % (18.3-44.2); Mean Corpuscular HGB Conc 31.5 g/dl (32-36); Mean Corpuscular Hemoglobin 28.6 pg (26-34); Mean Corpuscular Volume 90.9 fl (80-100); Mean Platelet Volume 9.7 fl (7.4-10.4); Monocytes Absolute Auto 0.2 K/mm3 (0.1-0.6); Neutrophils Absolute Auto 2.8 K/mm3 (1.3-6.7); Neutrophils Percent Auto 78.6 % (45.5-73.1); Platelet Count Result 389 k/mm3 (150-375); Red Blood Count 2.97 M/mm3 (4.2-5.4); Red Cell Distribution Width 14.8 % (11.5-14.5); White Blood Count 3.5 K/mm3 (4.5-10.0)
[2019-11-26 09:25] LABS: Alanine Aminotransferase 25 U/L (4-35); Albumin Level 2.6 g/dL (3.5-5.1); Alkaline Phosphatase 73 U/L (38-126); Aspartate Amino Transferase 38 U/L (14-36); Bilirubin,Total 0.2 mg/dL (0.2-1.3); Blood Urea Nitrogen 17 mg/dL (7-17); Calcium 8.5 mg/dL (8.4-10.2); Carbon Dioxide 29 mmol/L (22-30); Chloride 100 mmol/L (98-107); Estimated CRCL calculation 83 ml/min; Estimated Glomerular Filt Rate > 60; Glucose 88 mg/dL (65-105); Magnesium 1.6 mg/dL (1.6-2.3); Sodium 132 mmol/L (137-145)
[2019-11-26] MEDS: CEFDINIR 300 MG CAPSULE PO ×2 (09:46→21:03)
[2019-11-26] MEDS: FLUCONAZOLE 100 MG TABLET PO (09:46)
[2019-11-26] MEDS: POTASSIUM CHLORIDE 20 MEQ TABLET.ER 40 MEQ PO (09:46)
[2019-11-26] MEDS: polyethylene glycoL 3350 17 GM POWD.PACK PO (09:46)
[2019-11-26] MEDS: FERROUS SULFATE 324 MG TABLET PO (09:47)
[2019-11-26] MEDS: MAGNESIUM OXIDE 400 MG TABLET PO (09:47)
[2019-11-26] MEDS: ACETAMINOPHEN 325 MG TABLET 650 MG PO ×2 (09:50→14:38)
[2019-11-26] MEDS: BISACODYL 5 MG TABLET EC PO (09:50)
[2019-11-26] MEDS: FAMOTIDINE 20 MG/2 ML VIAL IV PUSH ×2 (09:51→21:10)
--- NOTE | 2019-11-26 10:14 | PM.PNPUL ---
Progress Note: A&P Assessment and Plan (1) Pneumonia: Qualifiers: Laterality: bilateral Lung location: lower lobe of lung Pneumonia type: due to unspecified organism Qualified Code(s): J18.9 - Pneumonia, unspecified organism Code(s): J18.9 - Pneumonia, unspecified organism Status: Acute (2) HIV (human immunodeficiency virus infection): Qualifiers: HIV symptom status: symptomatic Qualified Code(s): B20 - Human immunodeficiency virus [HIV] disease Code(s): B20 - Human immunodeficiency virus [HIV] disease Status: Acute (3) Epigastric pain: Code(s): R10.13 - Epigastric pain Status: Acute Assessment and Plan: May have esophagitis. She is at high risk for esophageal candidiasis. Visualization with EGD is recommended. She is already on fluconazole per Dr. Prince. Time Spent With Patient Time with patient: 15 - 25 minutes Subjective Date/time seen: 11/26/19 10:14 Interval history: Pt complains of substernal chest pain that is worse with swallowing liquids and solids. She is already on H2 charles and fluconazole. Denies significant cough. Bronchoscopy AFB and other cultures such as PJP are pending Review of Systems Review of Systems: All systems reviewed & are unremarkable except as noted in HPI and below Exam Narrative: Exam Narrative: cachectic, alert, watching TV. Const: General: comfortable, no acute distress and ill appearing Nutritional Appearance: cachectic Limitations: altered mental status (flat affect, poor historian, poor memory) HENMT: Head: normal to inspection Ears: hearing grossly normal bilaterally Mouth: Yes moist mucous membranes abnormal ( thick White coating over all oral membranes) Eyes: General: appearance normal, both eyes and all related structures Neck: Neck: supple and no JVD Lymphatic: lymphadenopathy Chest: Chest palpation & inspection: normal inspection of the chest Other: Few crackles both posterior lung leach, more pronounced in the bases. Resp: Auscultation: rales (minimal in bases posteriorly) and diminished lung sounds Cardio: Rate: regular rate Rhythm: regular rhythm Heart sounds: S1 normal heart sound present, S2 normal heart sound present, no gallops and no murmurs GI: Inspection: scaphoid Auscultation: normal bowel sounds and Hypoactive bowel sounds present Skin: General skin exam: normal color and no rashes or lesions noted Neuro: Speech: normal speech Extrem: General: no pedal edema, no edema and no pedal edema Psych: Affect: No normal affect (flat affect ) Objective Data Vital Signs Vital Signs: Vital Signs - 24 hr 11/25/19 10:28 11/25/19 12:00 11/25/19 16:00 Temperature 36.0 C L 37.1 C Pulse Rate 71 76 Respiratory Rate 16 16 Blood Pressure 112/75 112/76 Pulse Oximetry 97 97 96 11/25/19 20:00 11/25/19 21:44 11/25/19 22:00 Temperature 37.8 C H 37.8 C H 38.3 C H Pulse Rate 97 100 Respiratory Rate 18 18 Blood Pressure 104/69 107/72 Pulse Oximetry 91 100 11/26/19 00:00 11/26/19 02:00 11/26/19 04:00 Temperature 37.3 C Pulse Rate 88 80 75 Respiratory Rate 16 Blood Pressure 98/63 L Pulse Oximetry 100 11/26/19 06:00 11/26/19 08:00 Temperature 37.8 C H Pulse Rate 79 78 Respiratory Rate 18 Blood Pressure 98/65 L Pulse Oximetry 99 Intake/Output Intake/Output: Intake & Output 11/23/19 11/24/19 11/25/19 11/26/19 23:59 23:59 23:59 23:59 Intake Total 590 880 980 200 Balance 590 880 980 200 Meds/Results Medications: Active Medications Generic Name Dose Route Start Last Admin Trade Name Freq PRN Reason Stop Dose Admin Acetaminophen 650 mg 11/12/19 21:07 11/26/19 09:50 Tylenol Tablet PO 650 mg Q4H PRN Administration Mild Pain (1-3) or Fever Albuterol 2 puff 11/11/19 20:13 Proventil Hfa INHALATION QIDRT PRN Shortness Of Breath Benzonatate 100 mg 11/15/19 12:35 11/17/19 09:34 Tessalon Perles PO 10
--- NOTE | 2019-11-26 13:38 | PM.IMPN ---
Progress Note: A&P Assessment and Plan (1) Pneumonia: Qualifiers: Laterality: bilateral Lung location: lower lobe of lung Pneumonia type: due to unspecified organism Qualified Code(s): J18.9 - Pneumonia, unspecified organism Code(s): J18.9 - Pneumonia, unspecified organism Status: Acute Assessment and Plan: 11/26/19 13:3 Date of Service: Admitted with altered mental status, pneumonia, acute renal failure. Still feels weak. Does still complain of chest pain with cough. Complains of shortness of breath. Reports still has some sputum with her. Feels weak. today repeat chest x-ray showed worsening pneumonia, since there there was a concerned patient may have aspiration pneumonia will stop Rocephin will start the patient Zosyn, also patient oxygen requirement is also increasing, patient does not cooperate and urinated on herself, Nursing reports patient has not been wanting to do anything for herself. Patient does not remember the address of her home or the telephone number or any contacts, however patient continued to cough to further evaluate patient had CTA of the chest, he did not show pulmonary emboli however patient has a significant interstitial lung disease will consult the renderer further recommendation, patient has not had a BM and several days KUB showed no obstruction will give suppository will increase the patient oral intake, today patient is seen by renderer, patient is HIV positive and renderer suspect CT scan most likely indicates TB presentation, transferred the patient to negative pressure room, Patient was seen Dr. prince on 11/17 and further work up was ordered, stopped Zosyn and started on ceftriaxone and continued zithromax, patient does not provide detailed review of symptoms however feels little better not coughing as much, c/o constipation but does not eat much and does not want to take Miralax. patient 1st sputum TB is negative will need two additional sputum tests however today patient was seen renderer is recommending bronchsopy to get better sample to r/o TB. today patient was seen Dr. Prince Quant. RNA pcr is negative and patient is taken off isolation, HIV patient CD 4 count is pending but with total lymphocyte count on admission of 240 suspect patient has AIDS and started patient on antiretroviral with Genvoya. will continue rocephin and patient completed zithromax, on 11/21 patient had BM, D/W Dr. Massey on 11/21 recommended bronchoscopy to rule out TB, stats feeling better and patient more alert. Patient also spoke with 1 of her relatives and would not give us a contact number. Will discuss with care consultant for possible discharge planning and 1-2 days, on 11/23 patient had bronchoscopy, samples were collected for pneumocystic carinii as well as other mycobacteria, on 11/24 patient was feeling better, patient was seen by Dr. prince suspect most likely patient has AIDS unable to start Genvoya it is not available in the pharmacy will be started as outpatient, patient is off ceftriaxone and azithromycin, started the patient on cefdinir, if the patient's CD4 count is less than 50 patient will need 1200 mg of azithromycin Q weekly for suppression, today patient, states feeling better will follow-up on the labs. Patient is encouraged to participate in PT OT will discuss with care consultant for discharge planning (2) Emphysema lung: Qualifiers: Emphysema type: unspecified Qualified Code(s): J43.9 - Emphysema, unspecified Code(s): J43.9 - Emphysema, unspecified Status: Acute Assessment and Plan: Bullous emphysematous changes seen on chest x-ray. Continue nebulizer treatments and Symbicort. Continue oxygen and wean as tolerated. May need home O2 evaluation when ready for discharge. (3) Suspected COVID-19 virus infection: Code(s): Z20.828 - Contact with and (suspected) exposure to other viral communicable diseases Status: Rul
[2019-11-27] VITALS (14 sets, daily range): BP systolic 97–103; BP diastolic 57–69; PULSE 83–116; RESP 16–18; TEMP 37.1–38.2; O2SAT 97–99
[2019-11-27 07:05] LABS: Basophils Percent Auto 0.4 % (0.2-1.2); Hematocrit 27.6 % (37.0-47.0); Hemoglobin 8.7 g/dL (12.0-15.0); Immature Granulocyte Absolute 0.01 K/mm3 (0.00-0.031); Immature Granulocyte Percent A 0.4 % (0-0.5); Lymphocytes Absolute Auto 0.43 K/mm3 (0.9-3.2); Mean Corpuscular HGB Conc 31.5 g/dl (32-36); Mean Corpuscular Hemoglobin 28.2 pg (26-34); Mean Corpuscular Volume 89.3 fl (80-100); Mean Platelet Volume 9.6 fl (7.4-10.4); Monocytes Absolute Auto 0.2 K/mm3 (0.1-0.6); Monocytes Percent Auto 8.7 % (2.6-8.5); Neutrophils Absolute Auto 1.9 K/mm3 (1.3-6.7); Neutrophils Percent Auto 73.5 % (45.5-73.1); Platelet Count Result 426 k/mm3 (150-375); Red Blood Count 3.09 M/mm3 (4.2-5.4); Red Cell Distribution Width 14.9 % (11.5-14.5); White Blood Count 2.5 K/mm3 (4.5-10.0)
[2019-11-27 07:13] LABS: Alanine Aminotransferase 28 U/L (4-35); Albumin Level 2.6 g/dL (3.5-5.1); Alkaline Phosphatase 81 U/L (38-126); Aspartate Amino Transferase 43 U/L (14-36); Bilirubin,Total 0.1 mg/dL (0.2-1.3); Blood Urea Nitrogen 16 mg/dL (7-17); Calcium 8.3 mg/dL (8.4-10.2); Carbon Dioxide 29 mmol/L (22-30); Chloride 100 mmol/L (98-107); Estimated CRCL calculation 84 ml/min; Estimated Glomerular Filt Rate > 60; Glucose 92 mg/dL (65-105); Magnesium 1.6 mg/dL (1.6-2.3); Potassium 4.2 mmol/L (3.4-5.0); Sodium 132 mmol/L (137-145)
[2019-11-27] MEDS: polyethylene glycoL 3350 17 GM POWD.PACK PO (10:03)
[2019-11-27] MEDS: FLUCONAZOLE 100 MG TABLET PO (10:04)
[2019-11-27] MEDS: CEFDINIR 300 MG CAPSULE PO ×2 (10:04→20:52)
[2019-11-27] MEDS: FERROUS SULFATE 324 MG TABLET PO (10:04)
[2019-11-27] MEDS: FAMOTIDINE 20 MG/2 ML VIAL IV PUSH (10:05)
[2019-11-27] MEDS: POTASSIUM CHLORIDE 20 MEQ TABLET.ER 40 MEQ PO (10:05)
[2019-11-27] MEDS: MAGNESIUM OXIDE 400 MG TABLET PO (10:05)
[2019-11-27] MEDS: BISACODYL 5 MG TABLET EC PO (10:11)
--- NOTE | 2019-11-27 14:43 | PCPTNOTE ---
Pt declined PT this afternoon. Pt requests PT return tomorrow morning. Pt c/o trunk soreness.
--- NOTE | 2019-11-27 14:44 | PM.PNPUL ---
Subjective Date/time seen: 11/27/19 14:44 Interval history: Did not see patient today. Nurse called me from [facility] informing me that her bronchial brush is positive fo PJP. I will start her on TMP/SMX 15-20 mg/kg divided Q6h as I could not get a hold of Dr. Prince's number from switch board. Dr Prince to adjust the dose as he see fits. She is considered to have mild to moderate disease Objective Data Vital Signs Vital Signs: Vital Signs - 24 hr 11/26/19 16:00 11/26/19 18:00 11/26/19 20:00 Temperature 36.8 C Pulse Rate 96 89 82 Respiratory Rate 18 Blood Pressure 95/65 L Pulse Oximetry 99 11/26/19 22:00 11/27/19 00:00 11/27/19 02:00 Temperature 36.7 C 37.1 C Pulse Rate 86 83 89 Respiratory Rate 18 18 Blood Pressure 92/78 L 101/69 Pulse Oximetry 99 99 11/27/19 04:00 11/27/19 06:00 11/27/19 08:00 Temperature 37.2 C Pulse Rate 93 98 93 Respiratory Rate 16 Blood Pressure 103/69 Pulse Oximetry 98 11/27/19 08:40 11/27/19 10:00 11/27/19 12:00 Temperature 37.6 C Pulse Rate 116 H 96 Respiratory Rate 16 Blood Pressure 98/57 L Pulse Oximetry 98 99 Intake/Output Intake/Output: Intake & Output 11/24/19 11/25/19 11/26/19 11/27/19 23:59 23:59 23:59 23:59 Intake Total 864 185 4812 690 Output Total 700 Balance 089 580 4245 -10 Meds/Results Medications: Active Medications Generic Name Dose Route Start Last Admin Trade Name Freq PRN Reason Stop Dose Admin Acetaminophen 650 mg 11/12/19 21:07 11/26/19 14:38 Tylenol Tablet PO 650 mg Q4H PRN Administration Mild Pain (1-3) or Fever Albuterol 2 puff 11/11/19 20:13 Proventil Hfa INHALATION QIDRT PRN Shortness Of Breath Benzonatate 100 mg 11/15/19 12:35 11/17/19 09:34 Tessalon Perles PO 100 mg Q8H PRN Administration cough Bisacodyl 5 mg 11/21/19 17:38 11/27/19 10:11 Dulcolax Tab PO 5 mg DAILY PRN Administration Constipation Cefdinir 300 mg 11/26/19 09:00 11/27/19 10:04 Omnicef PO 12/02/19 23:59 300 mg Q12HR [facility]ERT Administration Docusate Sodium 100 mg 11/12/19 15:22 11/22/19 00:16 Colace Capsule PO 100 mg Q12H PRN Administration Constipation Famotidine 20 mg 11/11/19 21:00 11/27/19 10:05 Pepcid Iv IV PUSH 20 mg Q12HR ALBERT Administration Ferrous Sulfate 324 mg 11/12/19 09:45 11/27/19 10:04 Ferrous Sulfate PO 324 mg DAILY [facility] Administration Fluconazole 100 mg 11/18/19 14:40 11/27/19 10:04 Diflucan Tablet PO 100 mg QAM [facility] Administration Guaifenesin 1,200 mg 11/13/19 11:40 11/27/19 10:03 Mucinex 12 Hr Tab PO 1,200 mg Q12HR [facility] Administration Lidocaine HCl 0.3 ml 11/24/19 07:33 Xylocaine 2% Local Inj INTRADERM ONCE PRN to numb area Magnesium Oxide 400 mg 11/15/19 09:00 11/27/19 10:05 Mag-Ox PO 400 mg QAM [facility] Administration Ondansetron HCl 4 mg 11/11/19 17:31 11/17/19 04:43 Zofran Inj IV PUSH 4 mg Q4H PRN Administration Nausea Polyethylene Glycol 17 gm 11/14/19 15:15 11/27/19 10:03 Miralax PO 17 gm QAM [facility] Administration Potassium Chloride 40 meq 11/14/19 08:00 11/27/19 10:05 Kcl Tablet PO 40 meq DAILY@0800 [facility] Administration Trimethoprim/Sulfamethoxazole 2 tab 11/27/19 14:45 Septra PO 12/17/19 15:00 Q6H [facility] Radiology Results: ITS Impressions Head CT 11/11/19 16:05 IMPRESSION: 1. Normal head CT. Chest X-Ray 11/15/19 10:04 Impression: 1: Progression of bilateral pneumonia, predominantly basilar, superimposed on emphysema. Chest CTA 11/15/19 16:41 IMPRESSION: 1. No pulmonary emboli. 2. Multisegmental bibasilar consolidation, likely bacterial pneumonia. 3. Severe interstitial lung disease with large regions cavitation and honeycombing. If patient does not have known diagnosis, recommend pulmonary consult. 4. Possible subcarinal lymphadenopathy. 5. Anasarca. Abdomen X
--- NOTE | 2019-11-27 15:12 | PM.IMPN ---
Progress Note: A&P Assessment and Plan (1) Pneumonia: Qualifiers: Laterality: bilateral Lung location: lower lobe of lung Pneumonia type: due to unspecified organism Qualified Code(s): J18.9 - Pneumonia, unspecified organism Code(s): J18.9 - Pneumonia, unspecified organism Status: Acute Assessment and Plan: 11/27/19 15:12 Date of Service: Admitted with altered mental status, pneumonia, acute renal failure. Still feels weak. Does still complain of chest pain with cough. Complains of shortness of breath. Reports still has some sputum with her. Feels weak. today repeat chest x-ray showed worsening pneumonia, since there there was a concerned patient may have aspiration pneumonia will stop Rocephin will start the patient Zosyn, also patient oxygen requirement is also increasing, patient does not cooperate and urinated on herself, Nursing reports patient has not been wanting to do anything for herself. Patient does not remember the address of her home or the telephone number or any contacts, however patient continued to cough to further evaluate patient had CTA of the chest, he did not show pulmonary emboli however patient has a significant interstitial lung disease will consult the internal audit consultant further recommendation, patient has not had a BM and several days KUB showed no obstruction will give suppository will increase the patient oral intake, today patient is seen by internal audit consultant, patient is HIV positive and internal audit consultant suspect CT scan most likely indicates TB presentation, transferred the patient to negative pressure room, Patient was seen Dr. prince on 11/17 and further work up was ordered, stopped Zosyn and started on ceftriaxone and continued zithromax, patient does not provide detailed review of symptoms however feels little better not coughing as much, c/o constipation but does not eat much and does not want to take Miralax. patient 1st sputum TB is negative will need two additional sputum tests however today patient was seen internal audit consultant is recommending bronchsopy to get better sample to r/o TB. today patient was seen Dr. Prince Quant. RNA pcr is negative and patient is taken off isolation, HIV patient CD 4 count is pending but with total lymphocyte count on admission of 240 suspect patient has AIDS and started patient on antiretroviral with Genvoya. will continue rocephin and patient completed zithromax, on 11/21 patient had BM, D/W Dr. Massey on 11/21 recommended bronchoscopy to rule out TB, stats feeling better and patient more alert. Patient also spoke with 1 of her relatives and would not give us a contact number. Will discuss with memory care director for possible discharge planning and 1-2 days, on 11/23 patient had bronchoscopy, samples were collected for pneumocystic carinii as well as other mycobacteria, on 11/24 patient was feeling better, patient was seen by Dr. prince suspect most likely patient has AIDS unable to start Genvoya it is not available in the pharmacy will be started as outpatient, patient is off ceftriaxone and azithromycin, started the patient on cefdinir, if the patient's CD4 count is less than 50 patient will need 1200 mg of azithromycin Q weekly for suppression, today patient, states feeling better will follow-up on the labs. Patient is encouraged to participate in PT OT will discuss with memory care director for discharge planning, patient has given us permission to contact her landlord [employer] [phone], memory care director will contact the landlord hopefully discharge her soon. (2) Emphysema lung: Qualifiers: Emphysema type: unspecified Qualified Code(s): J43.9 - Emphysema, unspecified Code(s): J43.9 - Emphysema, unspecified Status: Acute Assessment and Plan: Bullous emphysematous changes seen on chest x-ray. Continue nebulizer treatments and Symbicort. Continue oxygen and wean as tolerated. May need home O2 evaluation when ready for discharge. (3) Suspect
[2019-11-27] MEDS: NEOMYCIN/POLYMYXIN/BACITRACIN OINTMENT PACKET 1 PACKET (18:51)
[2019-11-27] MEDS: FAMOTIDINE 20 MG TABLET PO (20:52)
[2019-11-27] MEDS: ACETAMINOPHEN 325 MG TABLET 650 MG PO (22:24)
[2019-11-28] VITALS (13 sets, daily range): BP systolic 92–109; BP diastolic 61–77; PULSE 68–99; RESP 16; TEMP 36.9–38.3; O2SAT 94–99
[2019-11-28 06:27] LABS: Alanine Aminotransferase 27 U/L (4-35); Albumin Level 2.4 g/dL (3.5-5.1); Alkaline Phosphatase 68 U/L (38-126); Aspartate Amino Transferase 42 U/L (14-36); Bilirubin,Total 0.2 mg/dL (0.2-1.3); Blood Urea Nitrogen 19 mg/dL (7-17); Calcium 8.2 mg/dL (8.4-10.2); Carbon Dioxide 27 mmol/L (22-30); Chloride 100 mmol/L (98-107); Estimated CRCL calculation 89 ml/min; Estimated Glomerular Filt Rate > 60; Glucose 84 mg/dL (65-105); Magnesium 1.7 mg/dL (1.6-2.3); Sodium 131 mmol/L (137-145)
[2019-11-28 07:41] LABS: Basophils Percent Auto 0.8 % (0.2-1.2); Eosinophils Percent Auto 0.4 % (0-4.4); Hematocrit 26.7 % (37.0-47.0); Hemoglobin 8.4 g/dL (12.0-15.0); Immature Granulocyte Absolute 0.03 K/mm3 (0.00-0.031); Immature Granulocyte Percent A 1.2 % (0-0.5); Immature Platelet Fraction Pct 2.7 % (0.9-11.2); Lymphocytes Absolute Auto 0.56 K/mm3 (0.9-3.2); Mean Corpuscular HGB Conc 31.5 g/dl (32-36); Mean Corpuscular Hemoglobin 28.5 pg (26-34); Mean Corpuscular Volume 90.5 fl (80-100); Mean Platelet Volume 9.9 fl (7.4-10.4); Monocytes Absolute Auto 0.3 K/mm3 (0.1-0.6); Monocytes Percent Auto 10.6 % (2.6-8.5); Neutrophils Absolute Auto 1.7 K/mm3 (1.3-6.7); Platelet Count Result 70 k/mm3 (150-375); Red Blood Count 2.95 M/mm3 (4.2-5.4); Red Cell Distribution Width 15.1 % (11.5-14.5); White Blood Count 2.5 K/mm3 (4.5-10.0)
[2019-11-28] MEDS: FLUCONAZOLE 100 MG TABLET PO (09:44)
[2019-11-28] MEDS: FAMOTIDINE 20 MG TABLET PO ×2 (09:44→20:42)
[2019-11-28] MEDS: polyethylene glycoL 3350 17 GM POWD.PACK PO (09:44)
[2019-11-28] MEDS: FERROUS SULFATE 324 MG TABLET PO (09:44)
[2019-11-28] MEDS: MAGNESIUM OXIDE 400 MG TABLET PO (09:44)
[2019-11-28] MEDS: POTASSIUM CHLORIDE 20 MEQ TABLET.ER 40 MEQ PO (09:44)
[2019-11-28] MEDS: CEFDINIR 300 MG CAPSULE PO (09:44)
--- NOTE | 2019-11-28 11:37 | WPDINFPN2 ---
Progress Note: A&P Assessment and Plan (1) HIV (human immunodeficiency virus infection): Qualifiers: HIV symptom status: symptomatic Qualified Code(s): B20 - Human immunodeficiency virus [HIV] disease Code(s): B20 - Human immunodeficiency virus [HIV] disease Status: Acute Assessment and Plan: 1. HIV infection, with AIDS. VL >800 K 2. Lung infiltrates, POD # 4 bronch, due to PJP REC Stop cefdinir and continue TMP-SMX # 2 / 21 days. Ok discharge, with initiation of anti-retrovirals as outpatient due to inpatient pharmacy formulary restrictions. I do not accept her insurance so cannot follow as outpatient, suggest referral to [facility] for MD referral and support services. Subjective Date/time seen: 11/28/19 11:37 Interval history: no complaints, on O2 Exam Narrative: Exam Narrative: afebrile Const: General: no acute distress Eyes: General: appearance normal, both eyes and all related structures Resp: Effort & Inspection: normal respiratory effort Auscultation: clear to auscultation bilaterally Cardio: Rhythm: regular rhythm Heart sounds: Gallop heart sound present GI: Inspection: non-distended GI Palp: Yes Soft to palpation and No Tenderness to palpation present (GI) Objective Data Vital Signs Vital Signs: Vital Signs - 24 hr 11/27/19 12:00 11/27/19 14:00 11/27/19 16:00 Temperature 37.4 C Pulse Rate 96 97 106 H Respiratory Rate 18 Blood Pressure 98/65 L Pulse Oximetry 99 11/27/19 20:00 11/27/19 21:24 11/27/19 22:00 Temperature 38.2 C H Pulse Rate 92 86 Respiratory Rate 16 Blood Pressure 97/62 L Pulse Oximetry 97 98 11/27/19 22:24 11/28/19 00:00 11/28/19 02:00 Temperature 38.2 C H 37.7 C H Pulse Rate 95 90 Respiratory Rate 16 Blood Pressure 94/63 L Pulse Oximetry 94 11/28/19 04:00 11/28/19 06:00 11/28/19 07:46 Temperature 36.9 C 37.2 C Pulse Rate 81 81 Respiratory Rate 16 Blood Pressure 93/63 L Pulse Oximetry 97 11/28/19 08:00 11/28/19 08:37 Temperature Pulse Rate 81 Respiratory Rate Blood Pressure Pulse Oximetry 98 Intake/Output Intake/Output: Intake & Output 11/25/19 11/26/19 11/27/19 11/28/19 23:59 23:59 23:59 23:59 Intake Total 980 1650 1030 140 Output Total 1300 300 Balance 980 1650 -270 -160 Meds/Results Medications: Active Medications Generic Name Dose Route Start Last Admin Trade Name Freq PRN Reason Stop Dose Admin Acetaminophen 650 mg 11/12/19 21:07 11/27/19 22:24 Tylenol Tablet PO 650 mg Q4H PRN Administration Mild Pain (1-3) or Fever Albuterol 2 puff 11/11/19 20:13 Proventil Hfa INHALATION QIDRT PRN Shortness Of Breath Benzonatate 100 mg 11/15/19 12:35 11/17/19 09:34 Tessalon Perles PO 100 mg Q8H PRN Administration cough Bisacodyl 5 mg 11/21/19 17:38 11/27/19 10:11 Dulcolax Tab PO 5 mg DAILY PRN Administration Constipation Cefdinir 300 mg 11/26/19 09:00 11/28/19 09:44 Omnicef PO 12/02/19 23:59 300 mg Q12HR [facility] Administration Docusate Sodium 100 mg 11/12/19 15:22 11/22/19 00:16 Colace Capsule PO 100 mg Q12H PRN Administration Constipation Famotidine 20 mg 11/27/19 21:00 11/28/19 09:44 Pepcid PO 20 mg Q12HR [facility] Administration Ferrous Sulfate 324 mg 11/12/19 09:45 11/28/19 09:44 Ferrous Sulfate PO 324 mg DAILY [facility] Administration Fluconazole 100 mg 11/18/19 14:40 11/28/19 09:44 Diflucan Tablet PO 100 mg QAM [facility] Administration Guaifenesin 1,200 mg 11/13/19 11:40 11/28/19 09:43 Mucinex 12 Hr Tab PO 1,200 mg Q12HR [facility] Administration Lidocaine HCl 0.3 ml 11/24/19 07:33 Xylocaine 2% Local Inj INTRADERM ONCE PRN to numb area Magnesium Oxide 400 mg 11/15/19 09:00 11/28/19 09:44 Mag-Ox PO 400 mg QAM [facility] Administration Ondansetron HCl 4 mg 11/11/19 17:31 11/17/19 04:43 Zofran Inj IV PUSH 4 mg Q4H PRN
[2019-11-28 11:39] LABS: Basophils Percent Auto 0.5 % (0.2-1.2); Eosinophils Percent Auto 0.5 % (0-4.4); Hematocrit 24.7 % (37.0-47.0); Hemoglobin 7.9 g/dL (12.0-15.0); Immature Granulocyte Absolute 0.02 K/mm3 (0.00-0.031); Immature Platelet Fraction Pct 3.9 % (0.9-11.2); Lymphocytes Absolute Auto 0.46 K/mm3 (0.9-3.2); Lymphocytes Percent Auto 23.6 % (18.3-44.2); Mean Corpuscular Hemoglobin 29.2 pg (26-34); Mean Corpuscular Volume 91.1 fl (80-100); Mean Platelet Volume 10.7 fl (7.4-10.4); Monocytes Absolute Auto 0.3 K/mm3 (0.1-0.6); Monocytes Percent Auto 12.8 % (2.6-8.5); Neutrophils Absolute Auto 1.2 K/mm3 (1.3-6.7); Neutrophils Percent Auto 61.6 % (45.5-73.1); Platelet Count Result 41 k/mm3 (150-375); Red Blood Count 2.71 M/mm3 (4.2-5.4); Red Cell Distribution Width 15.2 % (11.5-14.5)
--- NOTE | 2019-11-28 15:54 | PM.IMPN ---
Progress Note: A&P Assessment and Plan (1) Pneumonia: Qualifiers: Laterality: bilateral Lung location: lower lobe of lung Pneumonia type: due to unspecified organism Qualified Code(s): J18.9 - Pneumonia, unspecified organism Code(s): J18.9 - Pneumonia, unspecified organism Status: Acute Assessment and Plan: 11/28/19 15:54 Date of Service: Admitted with altered mental status, pneumonia, acute renal failure. Still feels weak. Does still complain of chest pain with cough. Complains of shortness of breath. Reports still has some sputum with her. Feels weak. today repeat chest x-ray showed worsening pneumonia, since there there was a concerned patient may have aspiration pneumonia will stop Rocephin will start the patient Zosyn, also patient oxygen requirement is also increasing, patient does not cooperate and urinated on herself, Nursing reports patient has not been wanting to do anything for herself. Patient does not remember the address of her home or the telephone number or any contacts, however patient continued to cough to further evaluate patient had CTA of the chest, he did not show pulmonary emboli however patient has a significant interstitial lung disease will consult the ski binding fitter and repairer further recommendation, patient has not had a BM and several days KUB showed no obstruction will give suppository will increase the patient oral intake, today patient is seen by ski binding fitter and repairer, patient is HIV positive and ski binding fitter and repairer suspect CT scan most likely indicates TB presentation, transferred the patient to negative pressure room, Patient was seen Dr. prince on 11/17 and further work up was ordered, stopped Zosyn and started on ceftriaxone and continued zithromax, patient does not provide detailed review of symptoms however feels little better not coughing as much, c/o constipation but does not eat much and does not want to take Miralax. patient 1st sputum TB is negative will need two additional sputum tests however today patient was seen ski binding fitter and repairer is recommending bronchsopy to get better sample to r/o TB. today patient was seen Dr. Prince Quant. RNA pcr is negative and patient is taken off isolation, HIV patient CD 4 count is pending but with total lymphocyte count on admission of 240 suspect patient has AIDS and started patient on antiretroviral with Genvoya. will continue rocephin and patient completed zithromax, on 11/21 patient had BM, D/W Dr. Massey on 11/21 recommended bronchoscopy to rule out TB, stats feeling better and patient more alert. Patient also spoke with 1 of her relatives and would not give us a contact number. Will discuss with palliative care nurse practitioner for possible discharge planning and 1-2 days, on 11/23 patient had bronchoscopy, samples were collected for pneumocystic carinii as well as other mycobacteria, on 11/24 patient was feeling better, patient was seen by Dr. prince suspect most likely patient has AIDS unable to start Genvoya it is not available in the pharmacy will be started as outpatient, patient is off ceftriaxone and azithromycin, started the patient on cefdinir, if the patient's CD4 count is less than 50 patient will need 1200 mg of azithromycin Q weekly for suppression, patient had a bronchoscopy possible PJP patient is seen by Dr. prince stopped cefdinir , recommended Bactrim for 2/21 days, today patient is platelet count dropped to 40, patient has no complains of bleeding or bruising etiology uncertain most likely due to HIV patient is seen by refining supervisor and further recommendation to follow, patient clinically stable [facility] care nurse practitioner is working on, patient is encouraged to participate in physical therapy and her ADLs. (2) Emphysema lung: Qualifiers: Emphysema type: unspecified Qualified Code(s): J43.9 - Emphysema, unspecified Code(s): J43.9 - Emphysema, unspecified Status: Acute Assessment and Plan: Bullous emphysematous changes seen on
[2019-11-28] MEDS: ACETAMINOPHEN 325 MG TABLET 650 MG PO (17:19)
--- NOTE | 2019-11-28 17:51 | P.PNONC_ITS ---
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 Labs reviewed. She will continue oral iron and Procrit injections. She has been eating well. Thrombocytopenia. 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 Other possibilities includes ITP and heparin induced thrombocytopenia. I will order platelet antibodies as well as heparin-induced platelet antibodies. No need for platelet transfusion at this time. She is clinically asymptomatic. HIV infection. Patient has been followed by Dr. conley. Plan to start anti- retroviral therapy as an outpatient. 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 She has been eating well and gaining weight. She denies any fevers and chills. She denies any bleeding and bruising. - Neurologic Reports system reviewed and no additional complaints, except as documented, Reports hearing normal, Reports weakness, Denies headache(s) Exam Vital signs: Karis Bentley. Assessment of coma and impaired consciousness. A practi nay scale. Lancet 1974; 2:81-4. Narrative: Lungs are clear to auscultation bilaterally Cardiovascular regular rate rhythm no murmurs Abdomen soft nontender nondistended bowel sounds are positive Extremities no edema PN: Objective Data - Labs CBC & Chem 7: 11/28/19 11:31 11/28/19 05:47 Labs: Laboratory Results - last 24 hr 11/28/19 11/28/19 11/28/19 05:47 07:35 11:31 WBC 2.5 L 2.0 L RBC 2.95 L 2.71 L Hgb 8.4 L 7.9 L Hct 26.7 L 24.7 L MCV 90.5 91.1 MCH 28.5 29.2 MCHC 31.5 L 32.0 RDW 15.1 H 15.2 H Plt Count 70 L D 41 L MPV 9.9 10.7 H Immature Gran % (Auto) 1.2 H 1.0 H Neut % (Auto) 65.0 61.6 Lymph % (Auto) 22.0 23.6 [place] % (Auto) 10.6 H 12.8 H Eos % (Auto) 0.4 0.5 Baso % (Auto) 0.8 0.5 Lymph # (Auto) 0.56 L 0.46 L [place] # (Auto) 0.3 0.3 Eos # (Auto) 0.0 0.0 Baso # (Auto) 0.0 0.0 Abs Immat Gran (auto) 0.03 0.02 Absolute Neuts (auto) 1.7 1.2 L Absolute Nucleated RBC 0.0 0.0 Nucleated RBC % 0.0 0.0 % Immature Plt Fraction 2.7 3.9 Sodium 131 L Potassium 4.0 Chloride 100 Carbon Dioxide 27 BUN 19 H Creatinine 0.50 L Estim Creat Clear Calc 89 Estimated GFR > 60 Glucose 84 Calcium 8.2 L Magnesium 1.7 Total Bilirubin 0.2 AST 42 H ALT 27 Alkaline Phosphatase 68 Total Protein 6.0 L Albumin 2.4 L
[2019-11-28] MEDS: EPOETIN ALFA 20,000 UNITS/ML VIAL 20000 UNITS SUB-Q (18:20)
[2019-11-29] VITALS (9 sets, daily range): BP systolic 91–103; BP diastolic 63–69; PULSE 60–102; RESP 16–20; TEMP 36.3–38.9; O2SAT 96–100
--- NOTE | 2019-11-29 06:05 | PC.NURSE ---
(dehydrogenation supervisor) notified of Temp of 102. States that he will enter orders.
--- NOTE | 2019-11-29 06:22 | PC.NURSE ---
notified of Temp of 102. NNO
[2019-11-29] MEDS: ACETAMINOPHEN 325 MG TABLET 650 MG PO (06:28)
[2019-11-29 06:39] LABS: Basophils Percent Auto 0.8 % (0.2-1.2); Eosinophils Percent Auto 0.4 % (0-4.4); Hematocrit 27.7 % (37.0-47.0); Hemoglobin 8.8 g/dL (12.0-15.0); Immature Granulocyte Absolute 0.01 K/mm3 (0.00-0.031); Immature Granulocyte Percent A 0.4 % (0-0.5); Immature Platelet Fraction Pct 10.2 % (0.9-11.2); Lymphocytes Absolute Auto 0.49 K/mm3 (0.9-3.2); Lymphocytes Percent Auto 20.6 % (18.3-44.2); Mean Corpuscular HGB Conc 31.8 g/dl (32-36); Mean Corpuscular Hemoglobin 28.2 pg (26-34); Mean Corpuscular Volume 88.8 fl (80-100); Monocytes Absolute Auto 0.3 K/mm3 (0.1-0.6); Monocytes Percent Auto 10.9 % (2.6-8.5); Neutrophils Absolute Auto 1.6 K/mm3 (1.3-6.7); Neutrophils Percent Auto 66.9 % (45.5-73.1); Red Blood Count 3.12 M/mm3 (4.2-5.4); Red Cell Distribution Width 14.8 % (11.5-14.5); White Blood Count 2.4 K/mm3 (4.5-10.0)
[2019-11-29 06:51] LABS: Alanine Aminotransferase 29 U/L (4-35); Albumin Level 2.6 g/dL (3.5-5.1); Alkaline Phosphatase 71 U/L (38-126); Aspartate Amino Transferase 42 U/L (14-36); Bilirubin,Total 0.1 mg/dL (0.2-1.3); Blood Urea Nitrogen 19 mg/dL (7-17); Calcium 8.2 mg/dL (8.4-10.2); Carbon Dioxide 27 mmol/L (22-30); Chloride 100 mmol/L (98-107); Estimated CRCL calculation 73 ml/min; Estimated Glomerular Filt Rate > 60; Glucose 95 mg/dL (65-105); Magnesium 1.8 mg/dL (1.6-2.3); Potassium 4.4 mmol/L (3.4-5.0); Sodium 131 mmol/L (137-145)
[2019-11-29 06:54] LABS: Platelet Count Result 10 k/mm3 (150-375)
--- NOTE | 2019-11-29 07:45 | PC.NURSE ---
platelet count 10,000. discussed with Dr. Loyd and Dr. Washington. plan to restart iv and give iv solumedrol today. may need platelet transfusion. Plan discussed with patient. Discussed high bleeding risk r/t low platelet count and plan for trying to get platelet count to increase. pt verbalizes understanding. patient denies any blood in mouth, urine or stool at this time.
[2019-11-29] MEDS: methylPREDNISolone SOD SUCC 125 MG VIAL IV PUSH ×2 (09:00→21:36)
[2019-11-29] MEDS: POTASSIUM CHLORIDE 20 MEQ TABLET.ER 40 MEQ PO (09:25)
[2019-11-29] MEDS: MAGNESIUM OXIDE 400 MG TABLET PO (09:29)
[2019-11-29] MEDS: FERROUS SULFATE 324 MG TABLET PO (09:30)
[2019-11-29] MEDS: FAMOTIDINE 20 MG TABLET PO ×2 (09:30→21:36)
[2019-11-29] MEDS: polyethylene glycoL 3350 17 GM POWD.PACK PO (09:33)
[2019-11-29] MEDS: BISACODYL 5 MG TABLET EC PO (09:41)
--- NOTE | 2019-11-29 12:03 | PM.PNPUL ---
Progress Note: A&P Assessment and Plan (1) Pneumonia: Qualifiers: Laterality: bilateral Lung location: lower lobe of lung Pneumonia type: due to unspecified organism Qualified Code(s): J18.9 - Pneumonia, unspecified organism Code(s): J18.9 - Pneumonia, unspecified organism Status: Acute Assessment and Plan: PJP Pneumonia Tolerating Bactrim 80/400, 2 tabs Q6h. (2) HIV (human immunodeficiency virus infection): Qualifiers: HIV symptom status: symptomatic Qualified Code(s): B20 - Human immunodeficiency virus [HIV] disease Code(s): B20 - Human immunodeficiency virus [HIV] disease Status: Acute (3) Epigastric pain: Code(s): R10.13 - Epigastric pain Status: Acute Assessment and Plan: May have esophagitis. She is at high risk for esophageal candidiasis. Visualization with EGD is recommended. She is already on fluconazole per Dr. Prince. Time Spent With Patient Time with patient: 15 - 25 minutes Subjective Date/time seen: 11/29/19 12:03 Interval history: Still feels weak and tired. Tolerating PO bactrim for PJP pneumonia Review of Systems Review of Systems: All systems reviewed & are unremarkable except as noted in HPI and below Exam Narrative: Exam Narrative: cachectic, alert, watching TV. Const: General: comfortable, no acute distress and ill appearing Nutritional Appearance: cachectic Limitations: altered mental status (flat affect, poor historian, poor memory) HENMT: Head: normal to inspection Ears: hearing grossly normal bilaterally Mouth: Yes moist mucous membranes abnormal ( thick White coating over all oral membranes) Eyes: General: appearance normal, both eyes and all related structures Neck: Neck: supple and no JVD Lymphatic: lymphadenopathy Chest: Chest palpation & inspection: normal inspection of the chest Other: Few crackles both posterior lung leach, more pronounced in the bases. Resp: Auscultation: rales (minimal in bases posteriorly) and diminished lung sounds Cardio: Rate: regular rate Rhythm: regular rhythm Heart sounds: S1 normal heart sound present, S2 normal heart sound present, no gallops and no murmurs GI: Inspection: scaphoid Auscultation: normal bowel sounds and Hypoactive bowel sounds present Skin: General skin exam: normal color and no rashes or lesions noted Neuro: Speech: normal speech Extrem: General: no pedal edema, no edema and no pedal edema Psych: Affect: No normal affect (flat affect ) Objective Data Vital Signs Vital Signs: Vital Signs - 24 hr 11/28/19 16:00 11/28/19 17:19 11/28/19 18:16 Temperature 37.9 C H 38.3 C H 37.9 C H Pulse Rate 68 Respiratory Rate 16 Blood Pressure 105/77 Pulse Oximetry 96 11/28/19 19:08 11/28/19 22:00 11/29/19 01:55 Temperature 38.0 C H 38.3 C H Pulse Rate 85 60 Respiratory Rate 16 16 Blood Pressure 92/61 L 94/64 L Pulse Oximetry 94 97 96 11/29/19 06:00 11/29/19 06:28 11/29/19 08:00 Temperature 38.9 C H 38.8 C H 37.2 C Pulse Rate 82 102 H Respiratory Rate 16 16 Blood Pressure 91/63 L 102/65 Pulse Oximetry 99 96 Intake/Output Intake/Output: Intake & Output 11/26/19 11/27/19 11/28/19 11/29/19 23:59 23:59 23:59 23:59 Intake Total 1650 1030 1050 500 Output Total 1300 300 500 Balance 1650 -270 750 0 Meds/Results Medications: Active Medications Generic Name Dose Route Start Last Admin Trade Name Freq PRN Reason Stop Dose Admin Acetaminophen 650 mg 11/12/19 21:07 11/29/19 06:28 Tylenol Tablet PO 650 mg Q4H PRN Administration Mild Pain (1-3) or Fever Albuterol 2 puff 11/11/19 20:13 Proventil Hfa INHALATION QIDRT PRN Shortness Of Breath Benzonatate 100 mg 11/15/19 12:35 11/17/19 09:34 Tessalon Perles PO 100 mg Q8H PRN Administration cough Bisacodyl 5 mg 11/21/19 17:38 11/29/19 09:41 Dulcolax Tab PO 5 mg DAILY PRN Administration Constipati
--- NOTE | 2019-11-29 14:49 | PM.IMPN ---
Progress Note: A&P Assessment and Plan (1) Pneumonia: Qualifiers: Laterality: bilateral Lung location: lower lobe of lung Pneumonia type: due to unspecified organism Qualified Code(s): J18.9 - Pneumonia, unspecified organism Code(s): J18.9 - Pneumonia, unspecified organism Status: Acute Assessment and Plan: 11/29/19 14:49 Date of Service: Admitted with altered mental status, pneumonia, acute renal failure. Still feels weak. Does still complain of chest pain with cough. Complains of shortness of breath. Reports still has some sputum with her. Feels weak. today repeat chest x-ray showed worsening pneumonia, since there there was a concerned patient may have aspiration pneumonia will stop Rocephin will start the patient Zosyn, also patient oxygen requirement is also increasing, patient does not cooperate and urinated on herself, Nursing reports patient has not been wanting to do anything for herself. Patient does not remember the address of her home or the telephone number or any contacts, however patient continued to cough to further evaluate patient had CTA of the chest, he did not show pulmonary emboli however patient has a significant interstitial lung disease will consult the multicut line operator further recommendation, patient has not had a BM and several days KUB showed no obstruction will give suppository will increase the patient oral intake, today patient is seen by multicut line operator, patient is HIV positive and multicut line operator suspect CT scan most likely indicates TB presentation, transferred the patient to negative pressure room, Patient was seen Dr. prince on 11/17 and further work up was ordered, stopped Zosyn and started on ceftriaxone and continued zithromax, patient does not provide detailed review of symptoms however feels little better not coughing as much, c/o constipation but does not eat much and does not want to take Miralax. patient 1st sputum TB is negative will need two additional sputum tests however today patient was seen multicut line operator is recommending bronchsopy to get better sample to r/o TB. today patient was seen Dr. Prince Quant. RNA pcr is negative and patient is taken off isolation, HIV patient CD 4 count is pending but with total lymphocyte count on admission of 240 suspect patient has AIDS and started patient on antiretroviral with Genvoya. will continue rocephin and patient completed zithromax, on 11/21 patient had BM, D/W Dr. Massey on 11/21 recommended bronchoscopy to rule out TB, stats feeling better and patient more alert. Patient also spoke with 1 of her relatives and would not give us a contact number. Will discuss with resident care technician for possible discharge planning and 1-2 days, on 11/23 patient had bronchoscopy, samples were collected for pneumocystic carinii as well as other mycobacteria, on 11/24 patient was feeling better, patient was seen by Dr. prince suspect most likely patient has AIDS unable to start Genvoya it is not available in the pharmacy will be started as outpatient, patient is off ceftriaxone and azithromycin, started the patient on cefdinir, if the patient's CD4 count is less than 50 patient will need 1200 mg of azithromycin Q weekly for suppression, patient had a bronchoscopy possible PJP patient is seen by Dr. prince stopped cefdinir , recommended Bactrim for / days, on 11/27 patient's platelet count dropped to 40, and today platelets are 10 patient has no complains of bleeding or bruising patient seen by Hematology etiology uncertain most likely due to HIV, drug induced and workup is in progress recommended Solu-Medrol 125 mg b.i.d. will continue to monitor further recommendation to follow, patient clinically stable [facility] resident care technician is working on, patient is encouraged to participate in physical therapy and her ADLs. (2) Emphysema lung: Qualifiers: Emphysema type: unspecified Qualified Code(s): J43.9 - Emphysema, unspecified C
--- NOTE | 2019-11-29 16:16 | P.PNONC_ITS ---
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 Hemoglobin is stable. She will continue oral iron and Procrit injection. No need for blood transfusion Thrombocytopenia. Labs noted. Platelet antibody and heparin-induced platelet a ntibodies ordered. I will start her on treatment with Solu-Medrol 125 mg q.12 hours due to sudden decline in platelet count more consistent with ITP. We will check platelet count every 12 hours for the next [address] conley is following the patient. 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 She denies any cough and shortness of breath. Denies any bleeding and bruising. Denies any abdominal pain. - Neurologic Reports system reviewed and no additional complaints, except as documented, Reports hearing normal, Reports weakness, Denies headache(s) Exam Vital signs: Karis Bentley. Assessment of coma and impaired consciousness. A practical scale. Lancet 1974; 2:81-4. Narrative: Lungs are clear to auscultation bilaterally Cardiovascular regular rate rhythm no murmurs Abdomen soft nontender nondistended bowel sounds are positive Extremities no edema PN: Objective Data - Labs CBC & Chem 7: 11/29/19 06:24 11/29/19 06:24 Labs: Laboratory Results - last 24 hr 11/29/19 11/29/19 06:24 06:24 WBC 2.4 L RBC 3.12 L Hgb 8.8 L Hct 27.7 L MCV 88.8 MCH 28.2 MCHC 31.8 L RDW 14.8 H Plt Count 10 L* D MPV TNP Immature Gran % (Auto) 0.4 Neut % (Auto) 66.9 Lymph % (Auto) 20.6 [place] % (Auto) 10.9 H Eos % (Auto) 0.4 Baso % (Auto) 0.8 Lymph # (Auto) 0.49 L [place] # (Auto) 0.3 Eos # (Auto) 0.0 Baso # (Auto) 0.0 Abs Immat Gran (auto) 0.01 Absolute Neuts (auto) 1.6 Absolute Nucleated RBC 0.0 Nucleated RBC % 0.0 % Immature Plt Fraction 10.2 Sodium 131 L Potassium 4.4 Chloride 100 Carbon Dioxide 27 BUN 19 H Creatinine 0.60 L Estim Creat Clear Calc 73 Estimated GFR > 60 Glucose 95 Calcium 8.2 L Magnesium 1.8 Total Bilirubin 0.1 L AST 42 H ALT 29 Alkaline Phosphatase 71 Total Protein 6.0 L Albumin 2.6 L
[2019-11-29 18:32] LABS: Immature Platelet Fraction Pct 18.4 % (0.9-11.2)
[2019-11-29 18:43] LABS: Platelet Count Result 8 k/mm3 (150-375)
[2019-11-30] VITALS (9 sets, daily range): BP systolic 96–123; BP diastolic 57–76; PULSE 68–79; RESP 16–20; TEMP 36.3–37; O2SAT 97–100
[2019-11-30] MEDS: ONDANSETRON INJ 4 MG/2 ML VIAL IV PUSH (04:18)
[2019-11-30] MEDS: ACETAMINOPHEN 325 MG TABLET 650 MG PO (04:18)
[2019-11-30 06:44] LABS: Hematocrit 26.2 % (37.0-47.0); Hemoglobin 8.4 g/dL (12.0-15.0); Immature Granulocyte Absolute 0.01 K/mm3 (0.00-0.031); Immature Granulocyte Percent A 0.4 % (0-0.5); Immature Platelet Fraction Pct 16.7 % (0.9-11.2); Lymphocytes Absolute Auto 0.34 K/mm3 (0.9-3.2); Lymphocytes Percent Auto 12.7 % (18.3-44.2); Mean Corpuscular HGB Conc 32.1 g/dl (32-36); Mean Corpuscular Hemoglobin 28.7 pg (26-34); Mean Corpuscular Volume 89.4 fl (80-100); Monocytes Absolute Auto 0.1 K/mm3 (0.1-0.6); Monocytes Percent Auto 4.5 % (2.6-8.5); Neutrophils Absolute Auto 2.2 K/mm3 (1.3-6.7); Neutrophils Percent Auto 82.4 % (45.5-73.1); Red Blood Count 2.93 M/mm3 (4.2-5.4); Red Cell Distribution Width 15.1 % (11.5-14.5); White Blood Count 2.7 K/mm3 (4.5-10.0)
[2019-11-30 06:56] LABS: Alanine Aminotransferase 26 U/L (4-35); Albumin Level 2.9 g/dL (3.5-5.1); Alkaline Phosphatase 61 U/L (38-126); Aspartate Amino Transferase 36 U/L (14-36); Bilirubin,Total 0.3 mg/dL (0.2-1.3); Blood Urea Nitrogen 29 mg/dL (7-17); Calcium 9.1 mg/dL (8.4-10.2); Carbon Dioxide 25 mmol/L (22-30); Chloride 103 mmol/L (98-107); Estimated CRCL calculation 73 ml/min; Estimated Glomerular Filt Rate > 60; Glucose 121 mg/dL (65-105); Magnesium 1.9 mg/dL (1.6-2.3); Potassium 5.4 mmol/L (3.4-5.0); Sodium 133 mmol/L (137-145)
[2019-11-30 07:37] LABS: Platelet Count Result 17 k/mm3 (150-375)
[2019-11-30] MEDS: methylPREDNISolone SOD SUCC 125 MG VIAL IV PUSH ×2 (09:00→20:32)
[2019-11-30] MEDS: MAGNESIUM OXIDE 400 MG TABLET PO (09:00)
--- NOTE | 2019-11-30 11:04 | PCNFU ---
Nutrition Follow-Up Complete: Inadequate Oral Intake as related to Pnuemonia as evidenced by reported poor po intake on admission. Goal: adequate Intake of at least 50% of meals/supplements Progressing towards goal. We will continue current goal. Pt current nutrition is Regular. Nutrition recommendation:Agree Last recorded weight is 43.9 kg. Bowel Motility:_BM reported 11/29 Labs Reviewed:Na 133,Alb 2.9,Glu 121,BUN 29,Cr 0.6, Plt Count 17 Meds Noted:Jericho Herr Additional Notes: Patient currently on a regular diet with Ensure Enlive TID. Eating 100% of breakfast today: sausage, thakur, cream of wheat and crystal light. Plt count low. MD plans to restart iv and give iv solumedrol today. Monitoring: RD will monitor every 5 days.
[2019-11-30] MEDS: POTASSIUM CHLORIDE 20 MEQ TABLET.ER 40 MEQ PO (11:18)
[2019-11-30] MEDS: FERROUS SULFATE 324 MG TABLET PO (11:19)
[2019-11-30] MEDS: FAMOTIDINE 20 MG TABLET PO ×2 (11:20→20:32)
[2019-11-30] MEDS: polyethylene glycoL 3350 17 GM POWD.PACK PO (11:20)
[2019-11-30] MEDS: SODIUM CHLORIDE 0.9% IV 250 ML 25 ML (11:22)
--- NOTE | 2019-11-30 12:54 | PM.IMPN ---
Progress Note: A&P Assessment and Plan (1) Pneumonia: Qualifiers: Laterality: bilateral Lung location: lower lobe of lung Pneumonia type: due to unspecified organism Qualified Code(s): J18.9 - Pneumonia, unspecified organism Code(s): J18.9 - Pneumonia, unspecified organism Status: Acute Assessment and Plan: Admitted with altered mental status, pneumonia, acute renal failure. Pt is looking cachexic history of AIDS. Cxr shows, bilateral pneumonia likely PCP pneumonia secondary to HIV. Pt is also being investigated for TB. with AFBs. Pt is needing 1 liter of oxygen. (2) Emphysema lung: Qualifiers: Emphysema type: unspecified Qualified Code(s): J43.9 - Emphysema, unspecified Code(s): J43.9 - Emphysema, unspecified Status: Acute Assessment and Plan: Bullous emphysematous changes seen on chest x-ray. Continue nebulizer treatments and Symbicort. Continue oxygen and wean as tolerated. May need home O2 evaluation when ready for discharge. (3) Suspected COVID-19 virus infection: Code(s): Z20.828 - Contact with and (suspected) exposure to other viral communicable diseases Status: Ruled-out Assessment and Plan: COVID-19 testing negative. (4) Anemia: Qualifiers: Anemia type: iron deficiency Iron deficiency anemia type: unspecified iron deficiency Qualified Code(s): D50.9 - Iron deficiency anemia, unspecified Code(s): D64.9 - Anemia, unspecified Status: Acute Assessment and Plan: Iron studies consistent with iron deficiency. 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 (9) Altered mental status: Qualifiers: Altered mental status type: somnolence Qualified Code(s): R40.0 - Somnolence Code(s): R41.82 - Altered mental status, unspecified Status: Acute Assessment and Plan: CT brain negative. Urine toxicology screen negative. HIV test is positive (10) Elevated troponin I level: Code(s): R79.89 - Other specified abnormal findings of blood chemistry Status: Acute Assessment and Plan: Mild elevation with level decreasing. EKG with no acute changes. (11) DVT prophylaxis: Code(s): Z29.9 - Encounter for prophylactic measures, unspecified Status: Acute Assessment and Plan: SCDs. Subjective Date/time seen: 11/30/19 12:54 Interval history: 39 year old female admitted with altered mental status, pneumonia, acute renal failure. Still feels weak. Does still complain of chest pain with cough. Complains of shortness of breath. Reports still has some green sputum. Feels weak. chest x-ray showed worsening pneumonia. Pt is looking cachexic history of AIDS. Cxr shows, bilateral pneumonia likely PCP pneumonia secondary to HIV. Pt is also being investigated for TB. with AFBs. Pt is needing 1 liter of oxygen. Review of Systems Constitutional: Constitutional: Reports as per HPI, Reports no additional constitutional complaints, Denies chills, Denies fever(s) and Reports weakness Cardiovascular: Cardiovascular: Reports no additional cardiovascular complaints and Reports chest pain (with coughing) Respiratory: Respiratory: Reports no additional respiratory complaints, Reports no additional respiratory complaints, Reports cough and Reports
--- NOTE | 2019-11-30 16:11 | PCPTNOTE ---
Attempted therapy session. Pt refused. Pt stated Dr said i didn't have to get up until tomorrow because my platelets are so low. Care-coordinator and therapist both explained the importance of therapy and getting up from the bed as well. Explained to Pt her Dr wants her to work with therapy. Pt continued to refused and stated she would work with therapy tomorrow.
--- NOTE | 2019-11-30 17:53 | WPDONCPN ---
Progress Note: A/P - Additional Plan Thrombocytopenia. Platelet antibodies are pending. Patient is on Solu-Medrol 125 mg IV q.12 [place] [address]. She is receiving platelet transfusion as well. I will continue the current dose of Solu-Medrol. Patient is asymptomatic. Multifactorial anemia. Hemoglobin is stable. Patient is on oral iron and status post Procrit injection. No need for transfusion. HIV infection. ID service is following the patient. 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 She denies any bleeding and bruising. Remains tired and weak but has been eating better. No diarrhea. No other new complaints. - Neurologic Reports system reviewed and no additional complaints, except as documented, Reports hearing normal, Reports weakness, Denies headache(s) Exam Vital signs: Karis Bentley. Assessment of coma and impaired consciousness. A practical scale. Lancet 1974; 2:81-4. Narrative: Lungs are clear to auscultation bilaterally Cardiovascular regular rate rhythm no murmurs Abdomen soft nontender nondistended bowel sounds are positive Extremities no edema PN: Objective Data - Labs CBC & Chem 7: 11/30/19 06:36 11/30/19 06:36 Labs: Laboratory Results - last 24 hr 11/29/19 11/29/19 11/30/19 18:08 19:13 06:36 WBC 2.7 L RBC 2.93 L Hgb 8.4 L Hct 26.2 L MCV 89.4 MCH 28.7 MCHC 32.1 RDW 15.1 H Plt Count 8 L* 17 L* D MPV TNP TNP Immature Gran % (Auto) 0.4 Neut % (Auto) 82.4 H Lymph % (Auto) 12.7 L [place] % (Auto) 4.5 Eos % (Auto) 0.0 Baso % (Auto) 0.0 L Lymph # (Auto) 0.34 L [place] # (Auto) 0.1 Eos # (Auto) 0.0 Baso # (Auto) 0.0 Abs Immat Gran (auto) 0.01 Absolute Neuts (auto) 2.2 Absolute Nucleated RBC 0.0 Nucleated RBC % 0.0 % Immature Plt Fraction 18.4 H 16.7 H Sodium Potassium Chloride Carbon Dioxide BUN Creatinine Estim Creat Clear Calc Estimated GFR Glucose Calcium Magnesium Total Bilirubin AST ALT Alkaline Phosphatase Total Protein Albumin Blood Type B Positive 11/30/19 06:36 WBC RBC Hgb Hct MCV MCH MCHC RDW Plt Count MPV Immature Gran % (Auto) Neut % (Auto) Lymph % (Auto) [place] % (Auto) Eos % (Auto) Baso % (Auto) Lymph # (Auto) [place] # (Auto) Eos # (Auto) Baso # (Auto) Abs Immat Gran (auto) Absolute Neuts (auto) Absolute Nucleated RBC Nucleated RBC % % Immature Plt Fraction Sodium 133 L Potassium 5.4 H Chloride 103 Carbon Dioxide 25 BUN 29 H D Creatinine 0.60 L Estim Creat Clear Calc 73 Estimated GFR > 60 Glucose 121 H Calcium 9.1 Magnesium 1.9 Total Bilirubin 0.3 AST 36 ALT 26 Alkaline Phosphatase 61 Total Protein 7.0 Albumin 2.9 L Blood Type
--- NOTE | 2019-11-30 18:15 | PM.PNPUL ---
Progress Note: A&P Assessment and Plan (1) Pneumonia: Qualifiers: Laterality: bilateral Lung location: lower lobe of lung Pneumonia type: due to unspecified organism Qualified Code(s): J18.9 - Pneumonia, unspecified organism Code(s): J18.9 - Pneumonia, unspecified organism Status: Acute Assessment and Plan: PJP Pneumonia Tolerating Bactrim 80/400, 2 tabs Q6h. (2) HIV (human immunodeficiency virus infection): Qualifiers: HIV symptom status: symptomatic Qualified Code(s): B20 - Human immunodeficiency virus [HIV] disease Code(s): B20 - Human immunodeficiency virus [HIV] disease Status: Acute (3) Epigastric pain: Code(s): R10.13 - Epigastric pain Status: Acute Assessment and Plan: May have esophagitis. She is at high risk for esophageal candidiasis. Visualization with EGD is recommended. She is already on fluconazole per Dr. Prince. (4) Constipation: Code(s): K59.00 - Constipation, unspecified Status: Acute Assessment and Plan: add Miralax and prune juice Subjective Date/time seen: 11/30/19 18:15 Interval history: Still feels weak and tired. Tolerating PO bactrim for PJP pneumonia She complains of constipation, had a Dulcolax suppository but needs something else. She is agreesable to prune juice and Miralax. Review of Systems Review of Systems: All systems reviewed & are unremarkable except as noted in HPI and below Exam Narrative: Exam Narrative: cachectic, alert, watching TV. Const: General: comfortable, no acute distress and ill appearing Nutritional Appearance: cachectic Limitations: altered mental status (flat affect, poor historian, poor memory) HENMT: Head: normal to inspection Ears: hearing grossly normal bilaterally Mouth: Yes moist mucous membranes abnormal Eyes: General: appearance normal, both eyes and all related structures Neck: Neck: supple and no JVD Lymphatic: lymphadenopathy Chest: Chest palpation & inspection: normal inspection of the chest Other: decreased crackles both posterior lung bases Resp: Auscultation: diminished lung sounds Cardio: Rate: regular rate Rhythm: regular rhythm Heart sounds: S1 normal heart sound present, S2 normal heart sound present, no gallops and no murmurs GI: Inspection: scaphoid Auscultation: normal bowel sounds and Hypoactive bowel sounds present Skin: General skin exam: normal color and no rashes or lesions noted Neuro: Speech: normal speech Extrem: General: no pedal edema, no edema and no pedal edema Psych: Affect: No normal affect (flat affect ) Objective Data Vital Signs Vital Signs: Vital Signs - 24 hr 11/29/19 22:00 11/29/19 22:10 11/30/19 02:00 Temperature 36.6 C 36.6 C Pulse Rate 89 68 Respiratory Rate 20 20 Blood Pressure 100/69 105/76 Pulse Oximetry 97 96 100 11/30/19 06:00 11/30/19 08:00 11/30/19 10:00 Temperature 36.6 C 36.3 C L Pulse Rate 72 70 70 Respiratory Rate 16 16 16 Blood Pressure 106/69 103/69 Pulse Oximetry 99 97 97 11/30/19 11:08 11/30/19 12:30 11/30/19 13:30 Temperature 36.3 C L 36.6 C 36.5 C Pulse Rate 70 76 72 Respiratory Rate 16 18 16 Blood Pressure 103/69 123/57 L 102/68 Pulse Oximetry 97 98 100 Intake/Output Intake/Output: Intake & Output 11/27/19 11/28/19 11/29/19 11/30/19 23:59 23:59 23:59 23:59 Intake Total 1030 1050 970 340 Output Total 1300 300 500 Balance -270 750 470 340 Meds/Results Medications: Active Medications Generic Name Dose Route Start Last Admin Trade Name Freq PRN Reason Stop Dose Admin Acetaminophen 650 mg 11/12/19 21:07 11/30/19 04:18 Tylenol Tablet PO 650 mg Q4H PRN Administration Mild Pain (1-3) or Fever Albuterol 2 puff 11/11/19 20:13 Proventil Hfa INHALATION QIDRT PRN Shortness Of Breath Benzonatate 100 mg 11/15/19 12:35 11/17/19 09:34 Tessalon Perles PO 100 mg Q8H PRN Administration cough B
[2019-11-30 18:32] LABS: Immature Platelet Fraction Pct 6.2 % (0.9-11.2); Mean Platelet Volume 11.5 fl (7.4-10.4); Platelet Count Result 123 k/mm3 (150-375)
[2019-11-30 21:28] LABS: Heparin Induced Platelet Antib Negative (Negative)
[2019-12-01 02:00] VITALS: BP 96/65; PULSE 71; RESP 16; TEMP 36.7; O2SAT 100
[2019-12-01 06:00] VITALS: BP 100/68; PULSE 81; RESP 16; TEMP 37.4; O2SAT 100
[2019-12-01 06:50] LABS: Hematocrit 26.7 % (37.0-47.0); Hemoglobin 8.6 g/dL (12.0-15.0); Immature Platelet Fraction Pct 8.7 % (0.9-11.2); Mean Corpuscular HGB Conc 32.2 g/dl (32-36); Mean Corpuscular Hemoglobin 28.9 pg (26-34); Mean Corpuscular Volume 89.6 fl (80-100); Mean Platelet Volume 12.2 fl (7.4-10.4); Platelet Count Result 109 k/mm3 (150-375); Red Blood Count 2.98 M/mm3 (4.2-5.4); Red Cell Distribution Width 15.5 % (11.5-14.5); White Blood Count 9.5 K/mm3 (4.5-10.0)
[2019-12-01 06:58] LABS: Blood Urea Nitrogen 32 mg/dL (7-17); Calcium 9.2 mg/dL (8.4-10.2); Carbon Dioxide 27 mmol/L (22-30); Chloride 101 mmol/L (98-107); Estimated CRCL calculation 64 ml/min; Estimated Glomerular Filt Rate > 60; Glucose 141 mg/dL (65-105); Potassium 4.8 mmol/L (3.4-5.0); Sodium 133 mmol/L (137-145)
[2019-12-01 08:20] VITALS: TEMP 36.6
[2019-12-01] MEDS: FAMOTIDINE 20 MG TABLET PO ×2 (08:21→21:45)
[2019-12-01] MEDS: FERROUS SULFATE 324 MG TABLET PO (08:21)
[2019-12-01] MEDS: MAGNESIUM OXIDE 400 MG TABLET PO (08:23)
[2019-12-01] MEDS: methylPREDNISolone SOD SUCC 125 MG VIAL IV PUSH ×2 (08:23→21:45)
[2019-12-01] MEDS: polyethylene glycoL 3350 17 GM POWD.PACK PO (08:26)
[2019-12-01 14:00] VITALS: BP 107/74; PULSE 82; RESP 18; TEMP 37.4; O2SAT 99
--- NOTE | 2019-12-01 16:41 | PM.IMPN ---
Progress Note: A&P Assessment and Plan (1) Pneumonia: Qualifiers: Laterality: bilateral Lung location: lower lobe of lung Pneumonia type: due to unspecified organism Qualified Code(s): J18.9 - Pneumonia, unspecified organism Code(s): J18.9 - Pneumonia, unspecified organism Status: Acute Assessment and Plan: Admitted with altered mental status, pneumonia, acute renal failure. Pt is looking cachexic history of AIDS. Cxr shows, bilateral pneumonia likely PCP pneumonia secondary to HIV. Pt is negative for TB. Pt is still needing 1 liter of oxygen. Pt is on iv steroids and bactrim oral. (2) Emphysema lung: Qualifiers: Emphysema type: unspecified Qualified Code(s): J43.9 - Emphysema, unspecified Code(s): J43.9 - Emphysema, unspecified Status: Acute Assessment and Plan: Bullous emphysematous changes seen on chest x-ray. Continue nebulizer treatments and Symbicort. Continue oxygen and wean as tolerated. May need home O2 evaluation when ready for discharge. (3) Suspected COVID-19 virus infection: Code(s): Z20.828 - Contact with and (suspected) exposure to other viral communicable diseases Status: Ruled-out Assessment and Plan: COVID-19 testing negative. (4) Anemia: Qualifiers: Anemia type: iron deficiency Iron deficiency anemia type: unspecified iron deficiency Qualified Code(s): D50.9 - Iron deficiency anemia, unspecified Code(s): D64.9 - Anemia, unspecified Status: Acute Assessment and Plan: Iron studies consistent with iron deficiency. (5) Hypokalemia: Code(s): E87.6 - Hypokalemia Status: Resolved Assessment and Plan: Potassium is corrected (6) Hypomagnesemia: Code(s): E83.42 - Hypomagnesemia Status: Acute Assessment and Plan: Magnesium 1.9 (7) Emaciated: Code(s): E41 - Nutritional marasmus Status: Acute Assessment and Plan: HIV testing is positive ? pt is not on HIV medications (8) Acute renal failure: Qualifiers: Acute renal failure type: unspecified Qualified Code(s): N17.9 - Acute kidney failure, unspecified Code(s): N17.9 - Acute kidney failure, unspecified Status: Resolved Assessment and Plan: Creat is 0.6, Encourage oral intake and ensures. (9) Altered mental status: Qualifiers: Altered mental status type: somnolence Qualified Code(s): R40.0 - Somnolence Code(s): R41.82 - Altered mental status, unspecified Status: Acute Assessment and Plan: CT brain negative. Urine toxicology screen negative. HIV test is positive (10) Elevated troponin I level: Code(s): R79.89 - Other specified abnormal findings of blood chemistry Status: Acute Assessment and Plan: Mild elevation with level decreasing. EKG with no acute changes. (11) DVT prophylaxis: Code(s): Z29.9 - Encounter for prophylactic measures, unspecified Status: Acute Assessment and Plan: SCDs. Subjective Date/time seen: 12/01/19 16:41 Interval history: 1 year old female admitted with altered mental status, pneumonia, acute renal failure. Still feels weak. Does still complain of chest pain with cough. Complains of shortness of breath. Reports still has some green sputum. Feels weak. chest x-ray showed worsening pneumonia. Pt is looking cachexic history of AIDS. Cxr shows, bilateral pneumonia likely PCP pneumonia secondary to HIV. Correction pt was investigated for TB. AFBs were negative GOLD interfeon test was negative. Discussed with pt regarding her diagnosis of HIV and PCP pneumonia Review of Systems Review of Systems: All systems reviewed & are unremarkable except as noted in HPI and below Constitutional: Constitutional: Reports as per HPI, Reports no additional constitutional complaints, Denies chills, Denies fever(s) and Reports weakness Cardiovascular: Car
--- NOTE | 2019-12-01 17:55 | PC.NURSE ---
Patient refuses to get out of bed. Only wants to work with therapy.
[2019-12-01 18:34] LABS: Mean Platelet Volume 11.6 fl (7.4-10.4); Platelet Count Result 107 k/mm3 (150-375)
[2019-12-01 22:00] VITALS: BP 104/70; PULSE 81; RESP 18; TEMP 36.6; O2SAT 99
[2019-12-02 06:00] VITALS: BP 110/73; PULSE 71; RESP 18; TEMP 36.6; O2SAT 100
[2019-12-02] MEDS: BISACODYL 5 MG TABLET EC PO (06:29)
[2019-12-02] MEDS: ACETAMINOPHEN 325 MG TABLET 650 MG PO (06:30)
[2019-12-02 07:32] LABS: Blood Urea Nitrogen 34 mg/dL (7-17); Calcium 9.4 mg/dL (8.4-10.2); Carbon Dioxide 25 mmol/L (22-30); Chloride 100 mmol/L (98-107); Estimated CRCL calculation 58 ml/min; Estimated Glomerular Filt Rate > 60; Glucose 116 mg/dL (65-105); Potassium 4.7 mmol/L (3.4-5.0); Sodium 133 mmol/L (137-145)
[2019-12-02] MEDS: FAMOTIDINE 20 MG TABLET PO ×2 (10:33→22:22)
[2019-12-02] MEDS: FERROUS SULFATE 324 MG TABLET PO (10:33)
[2019-12-02] MEDS: MAGNESIUM OXIDE 400 MG TABLET PO (10:34)
[2019-12-02] MEDS: methylPREDNISolone SOD SUCC 125 MG VIAL IV PUSH ×2 (10:34→22:22)
[2019-12-02] MEDS: polyethylene glycoL 3350 17 GM POWD.PACK PO (10:34)
[2019-12-02 14:00] VITALS: BP 99/64; PULSE 65; RESP 16; TEMP 36.6; O2SAT 100
--- NOTE | 2019-12-02 17:18 | PM.IMPN ---
Progress Note: A&P Assessment and Plan (1) Pneumonia: Qualifiers: Laterality: bilateral Lung location: lower lobe of lung Pneumonia type: due to unspecified organism Qualified Code(s): J18.9 - Pneumonia, unspecified organism Code(s): J18.9 - Pneumonia, unspecified organism Status: Acute Assessment and Plan: Admitted with altered mental status, pneumonia, acute renal failure. Pt is looking cachexic history of AIDS. Cxr shows, bilateral pneumonia likely PCP pneumonia secondary to HIV. Pt is negative for TB. weaning off oxygen. Pt is on iv steroids and bactrim oral. not on hiv medications, hopeful dischrage tomorrow (2) Emphysema lung: Qualifiers: Emphysema type: unspecified Qualified Code(s): J43.9 - Emphysema, unspecified Code(s): J43.9 - Emphysema, unspecified Status: Acute Assessment and Plan: Bullous emphysematous changes seen on chest x-ray. Continue nebulizer treatments and Symbicort. Continue oxygen and wean as tolerated. May need home O2 evaluation when ready for discharge. (3) Suspected COVID-19 virus infection: Code(s): Z20.828 - Contact with and (suspected) exposure to other viral communicable diseases Status: Ruled-out Assessment and Plan: COVID-19 testing negative. (4) Anemia: Qualifiers: Anemia type: iron deficiency Iron deficiency anemia type: unspecified iron deficiency Qualified Code(s): D50.9 - Iron deficiency anemia, unspecified Code(s): D64.9 - Anemia, unspecified Status: Acute Assessment and Plan: Iron studies consistent with iron deficiency. (5) Hypokalemia: Code(s): E87.6 - Hypokalemia Status: Resolved Assessment and Plan: Potassium is corrected (6) Hypomagnesemia: Code(s): E83.42 - Hypomagnesemia Status: Acute Assessment and Plan: Magnesium 1.9 (7) Emaciated: Code(s): E41 - Nutritional marasmus Status: Acute Assessment and Plan: HIV testing is positive ? pt is not on HIV medications (8) Acute renal failure: Qualifiers: Acute renal failure type: unspecified Qualified Code(s): N17.9 - Acute kidney failure, unspecified Code(s): N17.9 - Acute kidney failure, unspecified Status: Resolved Assessment and Plan: Creat is 0.6, Encourage oral intake and ensures. (9) Altered mental status: Qualifiers: Altered mental status type: somnolence Qualified Code(s): R40.0 - Somnolence Code(s): R41.82 - Altered mental status, unspecified Status: Acute Assessment and Plan: CT brain negative. Urine toxicology screen negative. HIV test is positive (10) Elevated troponin I level: Code(s): R79.89 - Other specified abnormal findings of blood chemistry Status: Acute Assessment and Plan: Mild elevation with level decreasing. EKG with no acute changes. (11) DVT prophylaxis: Code(s): Z29.9 - Encounter for prophylactic measures, unspecified Status: Acute Assessment and Plan: SCDs. Subjective Date/time seen: 12/02/19 17:18 Interval history: 1 year old female admitted with altered mental status, pneumonia, acute renal failure. Still feels weak. Does still complain of chest pain with cough. Complains of shortness of breath. Reports still has some green sputum. Feels weak. chest x-ray showed worsening pneumonia. Pt is looking cachexic history of AIDS. Cxr shows, bilateral pneumonia likely PCP pneumonia secondary to HIV. Correction pt was investigated for TB. AFBs were negative GOLD interfeon test was negative. Discussed with pt regarding her diagnosis of HIV and PCP pneumonia Review of Systems Review of Systems: All systems reviewed & are unremarkable except as noted in HPI and below Exam Narrative: Exam Narrative: Chronically, malnourished, cachexic Const: General: cooperative, healthy appearing, comfortable, no ac
[2019-12-02 18:08] LABS: Mean Platelet Volume 11.6 fl (7.4-10.4); Platelet Count Result 118 k/mm3 (150-375)
[2019-12-02 21:00] VITALS: O2SAT 97
[2019-12-02 21:20] VITALS: BP 90/60; PULSE 74; RESP 16; TEMP 36.9; O2SAT 97
[2019-12-02] MEDS: DOCUSATE SODIUM 100 MG CAPSULE PO (22:22)
[2019-12-02] MEDS: ONDANSETRON INJ 4 MG/2 ML VIAL IV PUSH (22:24)
[2019-12-03 06:00] VITALS: BP 118/76; PULSE 58; RESP 16; TEMP 36.4; O2SAT 100
[2019-12-03] MEDS: polyethylene glycoL 3350 17 GM POWD.PACK PO (09:15)
[2019-12-03] MEDS: MAGNESIUM OXIDE 400 MG TABLET PO (09:16)
[2019-12-03] MEDS: FERROUS SULFATE 324 MG TABLET PO (09:16)
[2019-12-03] MEDS: methylPREDNISolone SOD SUCC 125 MG VIAL IV PUSH (09:16)
[2019-12-03] MEDS: FAMOTIDINE 20 MG TABLET PO ×2 (09:17→21:13)
[2019-12-03 14:00] VITALS: BP 110/72; PULSE 58; RESP 16; TEMP 36.4; O2SAT 100
--- NOTE | 2019-12-03 15:59 | PM.IMPN ---
Progress Note: A&P Assessment and Plan (1) Pneumonia: Qualifiers: Laterality: bilateral Lung location: lower lobe of lung Pneumonia type: due to unspecified organism Qualified Code(s): J18.9 - Pneumonia, unspecified organism Code(s): J18.9 - Pneumonia, unspecified organism Status: Acute Assessment and Plan: Admitted with altered mental status, pneumonia, acute renal failure. Pt is looking cachexic history of AIDS. Cxr shows, bilateral pneumonia likely PCP pneumonia secondary to HIV. Pt is negative for TB. weaning off oxygen. Pt is on iv steroids and bactrim oral. not on hiv medications, hopeful discharge soon, wean of iv steroids, pt has some housing problems unsure if she needs a fci placement (2) Emphysema lung: Qualifiers: Emphysema type: unspecified Qualified Code(s): J43.9 - Emphysema, unspecified Code(s): J43.9 - Emphysema, unspecified Status: Acute Assessment and Plan: Bullous emphysematous changes seen on chest x-ray. Continue nebulizer treatments and Symbicort. Continue oxygen and wean as tolerated. May need home O2 evaluation when ready for discharge. (3) Suspected COVID-19 virus infection: Code(s): Z20.828 - Contact with and (suspected) exposure to other viral communicable diseases Status: Ruled-out Assessment and Plan: COVID-19 testing negative. (4) Anemia: Qualifiers: Anemia type: iron deficiency Iron deficiency anemia type: unspecified iron deficiency Qualified Code(s): D50.9 - Iron deficiency anemia, unspecified Code(s): D64.9 - Anemia, unspecified Status: Acute Assessment and Plan: Iron studies consistent with iron deficiency. (5) Hypokalemia: Code(s): E87.6 - Hypokalemia Status: Resolved Assessment and Plan: Potassium is corrected (6) Hypomagnesemia: Code(s): E83.42 - Hypomagnesemia Status: Acute Assessment and Plan: Magnesium 1.9 (7) Emaciated: Code(s): E41 - Nutritional marasmus Status: Acute Assessment and Plan: HIV testing is positive ? pt is not on HIV medications (8) Acute renal failure: Qualifiers: Acute renal failure type: unspecified Qualified Code(s): N17.9 - Acute kidney failure, unspecified Code(s): N17.9 - Acute kidney failure, unspecified Status: Resolved Assessment and Plan: Creat is 0.6, Encourage oral intake and ensures. (9) Altered mental status: Qualifiers: Altered mental status type: somnolence Qualified Code(s): R40.0 - Somnolence Code(s): R41.82 - Altered mental status, unspecified Status: Acute Assessment and Plan: CT brain negative. Urine toxicology screen negative. HIV test is positive (10) Elevated troponin I level: Code(s): R79.89 - Other specified abnormal findings of blood chemistry Status: Acute Assessment and Plan: Mild elevation with level decreasing. EKG with no acute changes. (11) DVT prophylaxis: Code(s): Z29.9 - Encounter for prophylactic measures, unspecified Status: Acute Assessment and Plan: SCDs. Subjective Date/time seen: 12/03/19 15:59 Interval history: 1 year old female admitted with altered mental status, pneumonia, acute renal failure. Still feels weak. Does still complain of chest pain with cough. Complains of shortness of breath. Reports still has some green sputum. Feels weak. chest x-ray showed worsening pneumonia. Pt is looking cachexic history of AIDS. Cxr shows, bilateral pneumonia likely PCP pneumonia secondary to HIV. Correction pt was investigated for TB. AFBs were negative GOLD interfeon test was negative. Discussed with pt regarding her diagnosis of HIV and PCP pneumonia. pt states she cannot go home, because of mould in her house ? if she needs to go to a fci. Review of Systems Review of Systems: All systems reviewed & are unremark
[2019-12-03 18:27] LABS: Mean Platelet Volume 11.7 fl (7.4-10.4); Platelet Count Result 150 k/mm3 (150-375)
[2019-12-03] MEDS: methylPREDNISolone SOD SUCC 125 MG VIAL 60 MG IV PUSH (21:12)
[2019-12-03 22:00] VITALS: BP 100/76; PULSE 68; RESP 18; TEMP 36.6; O2SAT 97
[2019-12-04 06:00] VITALS: BP 109/74; PULSE 82; RESP 20; TEMP 36.8; O2SAT 100
[2019-12-04 06:29] LABS: Hematocrit 26.8 % (37.0-47.0); Hemoglobin 8.7 g/dL (12.0-15.0); Mean Corpuscular HGB Conc 32.5 g/dl (32-36); Mean Corpuscular Hemoglobin 29.4 pg (26-34); Mean Corpuscular Volume 90.5 fl (80-100); Mean Platelet Volume 11.3 fl (7.4-10.4); Platelet Count Result 166 k/mm3 (150-375); Red Blood Count 2.96 M/mm3 (4.2-5.4); Red Cell Distribution Width 17.5 % (11.5-14.5); White Blood Count 7.5 K/mm3 (4.5-10.0)
[2019-12-04 06:44] LABS: Blood Urea Nitrogen 35 mg/dL (7-17); Calcium 9.3 mg/dL (8.4-10.2); Carbon Dioxide 25 mmol/L (22-30); Chloride 100 mmol/L (98-107); Estimated CRCL calculation 76 ml/min; Estimated Glomerular Filt Rate > 60; Glucose 104 mg/dL (65-105); Potassium 4.6 mmol/L (3.4-5.0); Sodium 130 mmol/L (137-145)
--- NOTE | 2019-12-04 07:02 | PCPTNOTE ---
This patient has met most goals..she is INDEP AND SAFE WITH BED MOBILITY, TRANSFERS, AND GAIT...SHE HAs consistently refused to leave the room, which prevents her from reaching her stair and distance goals...she will be d/c'd from PT
--- NOTE | 2019-12-04 08:26 | PM.IMPN ---
Progress Note: A&P Assessment and Plan (1) Pneumonia: Qualifiers: Laterality: bilateral Lung location: lower lobe of lung Pneumonia type: due to unspecified organism Qualified Code(s): J18.9 - Pneumonia, unspecified organism Code(s): J18.9 - Pneumonia, unspecified organism Status: Acute Assessment and Plan: Admitted with altered mental status, pneumonia, acute renal failure. Pt is looking cachexic history of AIDS. Cxr shows, bilateral pneumonia likely PCP pneumonia secondary to HIV. Pt is negative for TB. weaning off oxygen. We will switch steroids to PO cont bactrim oral. not on hiv medications. Might need to go to rehab since she calims she is weak and needs assistance to ambulate, lives by herself. (2) Emphysema lung: Qualifiers: Emphysema type: unspecified Qualified Code(s): J43.9 - Emphysema, unspecified Code(s): J43.9 - Emphysema, unspecified Status: Acute Assessment and Plan: Bullous emphysematous changes seen on chest x-ray. Continue nebulizer treatments and Symbicort. Continue oxygen and wean as tolerated. (3) Suspected COVID-19 virus infection: Code(s): Z20.828 - Contact with and (suspected) exposure to other viral communicable diseases Status: Ruled-out Assessment and Plan: COVID-19 testing negative. (4) Anemia: Qualifiers: Anemia type: iron deficiency Iron deficiency anemia type: unspecified iron deficiency Qualified Code(s): D50.9 - Iron deficiency anemia, unspecified Code(s): D64.9 - Anemia, unspecified Status: Acute Assessment and Plan: Iron studies consistent with iron deficiency. 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 (8) Acute renal failure: Qualifiers: Acute renal failure type: unspecified Qualified Code(s): N17.9 - Acute kidney failure, unspecified Code(s): N17.9 - Acute kidney failure, unspecified Status: Resolved Assessment and Plan: Resolved (9) Altered mental status: Qualifiers: Altered mental status type: somnolence Qualified Code(s): R40.0 - Somnolence Code(s): R41.82 - Altered mental status, unspecified Status: Acute Assessment and Plan: Resolved (10) Elevated troponin I level: Code(s): R79.89 - Other specified abnormal findings of blood chemistry Status: Acute Assessment and Plan: Mild elevation with level decreasing. EKG with no acute changes. (11) DVT prophylaxis: Code(s): Z29.9 - Encounter for prophylactic measures, unspecified Status: Acute Assessment and Plan: SCDs. Subjective Date/time seen: 12/04/19 08:26 Review of Systems Review of Systems: All systems reviewed & are unremarkable except as noted in HPI and below ROS unobtainable: Yes unobtainable due to medical condition Constitutional: Constitutional: Reports as per HPI, Reports no additional constitutional complaints, Denies chills, Denies fever(s) and Reports weakness Eyes: Eyes: Reports as per HPI and Reports no additional eye complaints ENT: Reports system reviewed and no additional complaints, except as documented, Reports Normal hearing present, Denies dysphagia and Denies dizziness Cardiovascular: Cardiovascular: Reports no additional cardiovascular complaints and Reports chest pain (with coughing) Respiratory: Respiratory: Reports no additional respiratory complaints, Reports no additional respiratory complaints, Reports cough and Reports wheezing Gastrointestinal: Gastrointestinal: Reports as per HPI, Reports no additional gastrointestina
[2019-12-04] MEDS: ONDANSETRON INJ 4 MG/2 ML VIAL IV PUSH (09:04)
[2019-12-04] MEDS: MAGNESIUM OXIDE 400 MG TABLET PO (09:04)
[2019-12-04] MEDS: FERROUS SULFATE 324 MG TABLET PO (09:04)
[2019-12-04] MEDS: FAMOTIDINE 20 MG TABLET PO ×2 (09:04→20:19)
[2019-12-04] MEDS: polyethylene glycoL 3350 17 GM POWD.PACK PO (09:04)
[2019-12-04] MEDS: predniSONE 20 MG TABLET 40 MG PO (09:36)
[2019-12-04 14:00] VITALS: BP 107/73; PULSE 88; RESP 18; TEMP 36.8; O2SAT 100
[2019-12-04 18:42] LABS: Mean Platelet Volume 11.5 fl (7.4-10.4); Platelet Count Result 180 k/mm3 (150-375)
[2019-12-04] MEDS: BISACODYL 5 MG TABLET EC PO (20:22)
[2019-12-04 22:00] VITALS: BP 97/61; PULSE 78; RESP 16; TEMP 36.7; O2SAT 100
[2019-12-05 06:00] VITALS: BP 111/79; PULSE 70; RESP 16; TEMP 36.9; O2SAT 99
[2019-12-05 06:11] LABS: Basophils Percent Auto 0.2 % (0.2-1.2); Hemoglobin 8.9 g/dL (12.0-15.0); Immature Granulocyte Absolute 0.09 K/mm3 (0.00-0.031); Immature Granulocyte Percent A 1.4 % (0-0.5); Lymphocytes Absolute Auto 0.49 K/mm3 (0.9-3.2); Lymphocytes Percent Auto 7.8 % (18.3-44.2); Mean Corpuscular HGB Conc 31.8 g/dl (32-36); Mean Corpuscular Hemoglobin 28.9 pg (26-34); Mean Corpuscular Volume 90.9 fl (80-100); Monocytes Absolute Auto 0.5 K/mm3 (0.1-0.6); Monocytes Percent Auto 7.5 % (2.6-8.5); Neutrophils Absolute Auto 5.2 K/mm3 (1.3-6.7); Neutrophils Percent Auto 83.1 % (45.5-73.1); Nucleated Red Blood Cells Perc 0.6 % (0.0-0.2); Platelet Count Result 160 k/mm3 (150-375); Red Blood Count 3.08 M/mm3 (4.2-5.4); Red Cell Distribution Width 18.2 % (11.5-14.5); White Blood Count 6.3 K/mm3 (4.5-10.0)
[2019-12-05 06:31] LABS: Blood Urea Nitrogen 31 mg/dL (7-17); Calcium 9.2 mg/dL (8.4-10.2); Carbon Dioxide 26 mmol/L (22-30); Chloride 100 mmol/L (98-107); Estimated CRCL calculation 76 ml/min; Estimated Glomerular Filt Rate > 60; Glucose 83 mg/dL (65-105); Sodium 131 mmol/L (137-145)
[2019-12-05 08:00] VITALS: PULSE 70; RESP 16; O2SAT 99
[2019-12-05] MEDS: predniSONE 20 MG TABLET 40 MG PO (08:40)
[2019-12-05] MEDS: MAGNESIUM OXIDE 400 MG TABLET PO (08:41)
[2019-12-05] MEDS: BISACODYL 5 MG TABLET EC PO (08:41)
[2019-12-05] MEDS: FERROUS SULFATE 324 MG TABLET PO (08:42)
[2019-12-05] MEDS: FAMOTIDINE 20 MG TABLET PO ×2 (08:42→21:16)
--- NOTE | 2019-12-05 11:28 | PCNFU ---
Nutrition Follow-Up Complete: Inadequate Oral Intake as related to Pneumonia as evidenced by reported poor po intake on admission. Goal: adequate Intake of at least 50% of meals/supplements Nutrition goal has been met. No new goal. Pt current nutrition is Regular. Nutrition recommendation: Agree Last recorded weight is 41.1 kg. Bowel Motility:+BM reported 12/04 Labs Reviewed:BUN 31,Na 131 Meds Noted:Prednisone,Mag Ox,Miralax,Mucinex Additional Notes: Patient currently consuming 100% of a Regular diet with Ensure Enlive TID. MD reporting Cxr showing, bilateral pneumonia likely PCP pneumonia secondary to HIV. Pt is negative for TB. weaning off oxygen. Monitoring: RD will monitor every 7 days.
[2019-12-05] MEDS: polyethylene glycoL 3350 17 GM POWD.PACK PO (11:57)
--- NOTE | 2019-12-05 13:33 | P.PNIM_ITS ---
Progress Note: A&P Assessment and Plan (1) Pneumonia: Qualifiers: Laterality: bilateral Lung location: lower lobe of lung Pneumonia type: due to unspecified organism Qualified Code(s): J18.9 - Pneumonia, unspecified organism Code(s): J18.9 - Pneumonia, unspecified organism Status: Acute Assessment and Plan: * Admitted with altered mental status, pneumonia, acute renal failure. * Pt is looking cachectiic history of AIDS. * Cxr shows, bilateral pneumonia likely PCP pneumonia secondary to HIV. Pt is negative for TB. * Cont bactrim day #02/26.. (2) Thrombocytopenia: Code(s): D69.6 - Thrombocytopenia, unspecified Status: Acute Assessment and Plan: * Platelet count is stable now. * On steroids for possible ITP * Heparin induced plt ab pending. (3) Emphysema lung: Qualifiers: Emphysema type: unspecified Qualified Code(s): J43.9 - Emphysema, unspecified Code(s): J43.9 - Emphysema, unspecified Status: Acute Assessment and Plan: * Bullous emphysematous changes seen on chest x-ray. * Continue nebulizer treatments and Symbicort. * On room air now. (4) Suspected COVID-19 virus infection: Code(s): Z20.828 - Contact with and (suspected) exposure to other viral communicable diseases Status: Ruled-out Assessment and Plan: * COVID-19 testing negative. (5) Anemia: Qualifiers: Anemia type: iron deficiency Iron deficiency anemia type: unspecified i laura deficiency Qualified Code(s): D50.9 - Iron deficiency anemia, unspecified Code(s): D64.9 - Anemia, unspecified Status: Acute Assessment and Plan: Iron studies consistent with iron deficiency. (6) Hypokalemia: Code(s): E87.6 - Hypokalemia Status: Resolved Assessment and Plan: Potassium is corrected (7) Hypomagnesemia: Code(s): E83.42 - Hypomagnesemia Status: Acute (8) Emaciated: Code(s): E41 - Nutritional marasmus Status: Acute Assessment and Plan: * HIV testing is positive, pt to start HIV medications as outpatient. (9) Acute renal failure: Qualifiers: Acute renal failure type: unspecified Qualified Code(s): N17.9 - Acute kidney failure, unspecified Code(s): N17.9 - Acute kidney failure, unspecified Status: Resolved Assessment and Plan: * Resolved (10) Altered mental status: Qualifiers: Altered mental status type: somnolence Qualified Code(s): R40.0 - Somnolence Code(s): R41.82 - Altered mental status, unspecified Status: Acute Assessment and Plan: * Resolved (11) Elevated troponin I level: Code(s): R79.89 - Other specified abnormal findings of blood chemistry Status: Acute Assessment and Plan: * Mild elevation with level decreasing. * EKG with no acute changes. (12) DVT prophylaxis: Code(s): Z29.9 - Encounter for prophylactic measures, unspecified Status: Acute Assessment and Plan: * SCDs only due to thrombocytopenia Subjective Date/time seen: No new complains, she still looking for a chcf, she does not want to go back home. 12/05/19 13:33 Review of Systems Review of Systems: All systems reviewed & are unremarkable except as noted in HPI and below Exam Const: General: no acute distress Other: Looks chronically ill, cachectic. Neck: Neck: supple and no JVD
--- NOTE | 2019-12-05 13:33 | PM.IMPN ---
Progress Note: A&P Assessment and Plan (1) Pneumonia: Qualifiers: Laterality: bilateral Lung location: lower lobe of lung Pneumonia type: due to unspecified organism Qualified Code(s): J18.9 - Pneumonia, unspecified organism Code(s): J18.9 - Pneumonia, unspecified organism Status: Acute Assessment and Plan: Admitted with altered mental status, pneumonia, acute renal failure. Pt is looking cachectiic history of AIDS. Cxr shows, bilateral pneumonia likely PCP pneumonia secondary to HIV. Pt is negative for TB. Cont bactrim day #02/26.. (2) Thrombocytopenia: Code(s): D69.6 - Thrombocytopenia, unspecified Status: Acute Assessment and Plan: Platelet count is stable now. On steroids for possible ITP Heparin induced plt ab pending. (3) Emphysema lung: Qualifiers: Emphysema type: unspecified Qualified Code(s): J43.9 - Emphysema, unspecified Code(s): J43.9 - Emphysema, unspecified Status: Acute Assessment and Plan: Bullous emphysematous changes seen on chest x-ray. Continue nebulizer treatments and Symbicort. On room air now. (4) Suspected COVID-19 virus infection: Code(s): Z20.828 - Contact with and (suspected) exposure to other viral communicable diseases Status: Ruled-out Assessment and Plan: COVID-19 testing negative. (5) Anemia: Qualifiers: Anemia type: iron deficiency Iron deficiency anemia type: unspecified iron deficiency Qualified Code(s): D50.9 - Iron deficiency anemia, unspecified Code(s): D64.9 - Anemia, unspecified Status: Acute Assessment and Plan: Iron studies consistent with iron deficiency. (6) Hypokalemia: Code(s): E87.6 - Hypokalemia Status: Resolved Assessment and Plan: Potassium is corrected (7) Hypomagnesemia: Code(s): E83.42 - Hypomagnesemia Status: Acute (8) Emaciated: Code(s): E41 - Nutritional marasmus Status: Acute Assessment and Plan: HIV testing is positive, pt to start HIV medications as outpatient. (9) Acute renal failure: Qualifiers: Acute renal failure type: unspecified Qualified Code(s): N17.9 - Acute kidney failure, unspecified Code(s): N17.9 - Acute kidney failure, unspecified Status: Resolved Assessment and Plan: Resolved (10) Altered mental status: Qualifiers: Altered mental status type: somnolence Qualified Code(s): R40.0 - Somnolence Code(s): R41.82 - Altered mental status, unspecified Status: Acute Assessment and Plan: Resolved (11) Elevated troponin I level: Code(s): R79.89 - Other specified abnormal findings of blood chemistry Status: Acute Assessment and Plan: Mild elevation with level decreasing. EKG with no acute changes. (12) DVT prophylaxis: Code(s): Z29.9 - Encounter for prophylactic measures, unspecified Status: Acute Assessment and Plan: SCDs only due to thrombocytopenia Subjective Date/time seen: No new complains, she still looking for a care home, she does not want to go back home. 12/05/19 13:33 Review of Systems Review of Systems: All systems reviewed & are unremarkable except as noted in HPI and below Exam Const: General: no acute distress Other: Looks chronically ill, cachectic. Neck: Neck: supple and no JVD Resp: Effort & Inspection: normal respiratory effort Auscultation: clear to auscultation bilaterally Cardio: Rate: regular rate Rhythm: regular rhythm GI: Auscultation: normal bowel sounds Neuro: Cognition (Neuro): normal cognition Speech: normal speech Motor exam (neuro): Normal motor muscle tone present throughout Sensory Exam: normal sensation Objective Data Vital Signs Vital Signs: Vital Signs - 24 hr 12/04/19 14:00 12/04/19 22:00 12/05/19 06:00 Temperature 98.2 F 98.0 F 98.4 F Puls
[2019-12-05 14:00] VITALS: BP 106/81; PULSE 104; RESP 14; TEMP 36.7; O2SAT 98
--- NOTE | 2019-12-05 15:56 | P.PNONC_ITS ---
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 Platelet count has improved and now normal. Patient is on prednisone 40 mg daily. She should continue prednisone 40 mg daily and taper 10 mg every 4th day. Patient will follow-up with my office in 1 week for lab check. Multifactorial anemia. Hemoglobin is stable. Status post Procrit injection and oral iron therapy. HIV infection. Id service is following. Plan to start anti-retroviral therapy as an outpatient. - Time Spent With Patient Total time spent is greater than 50% in coordination of care (as documented) at patient's floor/unit and/or counseling patient: 15 - 25 minutes Subjective Interval history: Multifactorial anemia secondary to HIV disease and chronic inflammation/infection and malnutrition HIV disease Thrombocytopenia secondary to ITP Review of Systems - Review of Systems Patient denies any fevers and chills. She denies any bleeding and bruising. She is looking much more comfortable. Remains tired. No other new complaints. - Neurologic Reports system reviewed and no additional complaints, except as documented, Reports hearing normal, Reports weakness, Denies headache(s) Exam Narrative: Lungs are clear to auscultation bilaterally Cardiovascular regular rate rhythm no murmurs Abdomen soft nontender nondistended bowel sounds are positive Extremities no edema PN: Objective Data - Labs CBC & Chem 7: 12/05/19 06:01 12/05/19 06:01 Labs: Laboratory Results - last 24 hr 12/04/19 12/05/19 12/05/19 18:14 06:01 06:01 WBC 6.3 RBC 3.08 L Hgb 8.9 L Hct 28.0 L MCV 90.9 MCH 28.9 MCHC 31.8 L RDW 18.2 H Plt Count 180 160 MPV 11.5 H 10.0 Immature Gran % (Auto) 1.4 H Neut % (Auto) 83.1 H Lymph % (Auto) 7.8 L Sullivan % (Auto) 7.5 Eos % (Auto) 0.0 Baso % (Auto) 0.2 Lymph # (Auto) 0.49 L Sullivan # (Auto) 0.5 Eos # (Auto) 0.0 Baso # (Auto) 0.0 Abs Immat Gran (auto) 0.09 H Absolute Neuts (auto) 5.2 Absolute Nucleated RBC 0.0 Nucleated RBC % 0.6 H Sodium 131 L Potassium 4.0 Chloride 100 Carbon Dioxide 26 BUN 31 H Creatinine 0.80 Estim Creat Clear Calc 76 Estimated GFR > 60 Glucose 83 Calcium 9.2
[2019-12-05 22:00] VITALS: BP 121/51; PULSE 86; RESP 20; TEMP 36.8; O2SAT 97
[2019-12-06 06:00] VITALS: BP 103/79; PULSE 77; RESP 16; TEMP 36.6; O2SAT 99
[2019-12-06 06:22] LABS: Basophils Percent Auto 0.3 % (0.2-1.2); Hematocrit 28.4 % (37.0-47.0); Hemoglobin 9.2 g/dL (12.0-15.0); Immature Granulocyte Absolute 0.06 K/mm3 (0.00-0.031); Immature Granulocyte Percent A 1.5 % (0-0.5); Lymphocytes Absolute Auto 0.42 K/mm3 (0.9-3.2); Lymphocytes Percent Auto 10.7 % (18.3-44.2); Mean Corpuscular HGB Conc 32.4 g/dl (32-36); Mean Corpuscular Hemoglobin 30.2 pg (26-34); Mean Corpuscular Volume 93.1 fl (80-100); Mean Platelet Volume 10.9 fl (7.4-10.4); Monocytes Absolute Auto 0.3 K/mm3 (0.1-0.6); Monocytes Percent Auto 8.7 % (2.6-8.5); Neutrophils Absolute Auto 3.1 K/mm3 (1.3-6.7); Neutrophils Percent Auto 78.8 % (45.5-73.1); Platelet Count Result 155 k/mm3 (150-375); Red Blood Count 3.05 M/mm3 (4.2-5.4); White Blood Count 3.9 K/mm3 (4.5-10.0)
[2019-12-06 06:31] LABS: Blood Urea Nitrogen 25 mg/dL (7-17); Calcium 8.9 mg/dL (8.4-10.2); Carbon Dioxide 28 mmol/L (22-30); Chloride 98 mmol/L (98-107); Estimated CRCL calculation 60 ml/min; Estimated Glomerular Filt Rate > 60; Glucose 78 mg/dL (65-105); Sodium 131 mmol/L (137-145)
[2019-12-06 08:00] VITALS: PULSE 77; RESP 16; O2SAT 99
[2019-12-06] MEDS: FERROUS SULFATE 324 MG TABLET PO (09:11)
[2019-12-06] MEDS: MAGNESIUM OXIDE 400 MG TABLET PO (09:12)
[2019-12-06] MEDS: predniSONE 20 MG TABLET 40 MG PO (09:12)
[2019-12-06] MEDS: FAMOTIDINE 20 MG TABLET PO (09:12)
[2019-12-06] MEDS: polyethylene glycoL 3350 17 GM POWD.PACK PO (09:15)
--- NOTE | 2019-12-06 10:34 | P.DS_ITS ---
DS: Admitting Diagnosis Admitting Diagnosis Admitting Diagnosis: Pneumonia, unspecified organism DS: Discharge Diagnosis Discharge Diagnosis (1) Pneumonia: Qualifiers: Laterality: bilateral Lung location: lower lobe of lung Pneumonia type: due to unspecified organism Qualified Code(s): J18.9 - Pneumonia, unspecified organism Code(s): J18.9 - Pneumonia, unspecified organism Status: Acute Assessment and Plan: * Admitted with altered mental status, pneumonia, acute renal failure. * Pt is looking cachectic history of AIDS. * Cxr shows, bilateral pneumonia likely PCP pneumonia secondary to HIV. * Pt is negative for TB. * Cont bactrim day #03/28. Discharged with 11 day supply of bactrim * and oral steroids Pt refusing home oxygen assessment. (2) Thrombocytopenia: Code(s): D69.6 - Thrombocytopenia, unspecified Status: Acute Assessment and Plan: * Platelet count is stable now. * On steroids for possible ITP * Pt to follow with DR [place] tassel maker. (3) Emphysema lung: Qualifiers: Emphysema type: unspecified Qualified Code(s): J43.9 - Emphysema, unspecified Code(s): J43.9 - Emphysema, unspecified Status: Acute Assessment and Plan: * Bullous emphysematous changes seen on chest x-ray. * Continue nebulizer treatments and Symbicort. * Pt refusing home oxygen assessment. (4) Suspected COVID-19 virus infection: Code(s): Z20.828 - Contact with and (suspected) exposure to other viral communicable diseases Status: Ruled-out Assessment and Plan: * COVID-19 testing negative. (5) Anemia: Qualifiers: Anemia type: iron deficiency Iron deficiency anemia type: unspecified iron deficiency Qualified Code(s): D50.9 - Iron deficiency anemia, unspecified Code(s): D64.9 - Anemia, unspecified Status: Acute Assessment and Plan: Iron studies consistent with iron deficiency. (6) Hypokalemia: Code(s): E87.6 - Hypokalemia Status: Resolved Assessment and Plan: Potassium is corrected (7) Hypomagnesemia: Code(s): E83.42 - Hypomagnesemia Status: Acute (8) Emaciated: Code(s): E41 - Nutritional marasmus Status: Acute Assessment and Plan: * HIV testing is positive, pt to start HIV medications as outpatient. Encourage regular diet and dietary supplementation. (9) Acute renal failure: Qualifiers: Acute renal failure type: unspecified Qualified Code(s): N17.9 - Acute kidney failure, unspecified Code(s): N17.9 - Acute kidney failure, unspecified Status: Resolved Assessment and Plan: * Resolved (10) Altered mental status: Qualifiers: Altered mental status type: somnolence Qualified Code(s): R40.0 - Herson nolence Code(s): R41.82 - Altered mental status, unspecified Status: Acute Assessment and Plan: * Resolved (11) Elevated troponin I level: Code(s): R79.89 - Other specified abnormal findings of blood chemistry Status: Acute Assessment and Plan: * Mild elevation with level decreasing. * EKG with no acute changes. (12) DVT prophylaxis: Code(s): Z29.9 - Encounter for prophylactic measures, unspecified Status: Acute Assessment and Plan: * SCDs only due to thrombocytopenia. Plts are 155 stable on dischrage. DS: Summary Time Spent with Patient Time attestation: Total time spent providing and/or coordinating discharg
--- NOTE | 2019-12-06 10:34 | PM.DS ---
DS: Admitting Diagnosis Admitting Diagnosis Admitting Diagnosis: Pneumonia, unspecified organism DS: Discharge Diagnosis Discharge Diagnosis (1) Pneumonia: Qualifiers: Laterality: bilateral Lung location: lower lobe of lung Pneumonia type: due to unspecified organism Qualified Code(s): J18.9 - Pneumonia, unspecified organism Code(s): J18.9 - Pneumonia, unspecified organism Status: Acute Assessment and Plan: Admitted with altered mental status, pneumonia, acute renal failure. Pt is looking cachectic history of AIDS. Cxr shows, bilateral pneumonia likely PCP pneumonia secondary to HIV. Pt is negative for TB. Cont bactrim day #03/28. Discharged with 11 day supply of bactrim and oral steroids Pt refusing home oxygen assessment. (2) Thrombocytopenia: Code(s): D69.6 - Thrombocytopenia, unspecified Status: Acute Assessment and Plan: Platelet count is stable now. On steroids for possible ITP Pt to follow with DR [place] logging assistant. (3) Emphysema lung: Qualifiers: Emphysema type: unspecified Qualified Code(s): J43.9 - Emphysema, unspecified Code(s): J43.9 - Emphysema, unspecified Status: Acute Assessment and Plan: Bullous emphysematous changes seen on chest x-ray. Continue nebulizer treatments and Symbicort. Pt refusing home oxygen assessment. (4) Suspected COVID-19 virus infection: Code(s): Z20.828 - Contact with and (suspected) exposure to other viral communicable diseases Status: Ruled-out Assessment and Plan: COVID-19 testing negative. (5) Anemia: Qualifiers: Anemia type: iron deficiency Iron deficiency anemia type: unspecified iron deficiency Qualified Code(s): D50.9 - Iron deficiency anemia, unspecified Code(s): D64.9 - Anemia, unspecified Status: Acute Assessment and Plan: Iron studies consistent with iron deficiency. (6) Hypokalemia: Code(s): E87.6 - Hypokalemia Status: Resolved Assessment and Plan: Potassium is corrected (7) Hypomagnesemia: Code(s): E83.42 - Hypomagnesemia Status: Acute (8) Emaciated: Code(s): E41 - Nutritional marasmus Status: Acute Assessment and Plan: HIV testing is positive, pt to start HIV medications as outpatient. Encourage regular diet and dietary supplementation. (9) Acute renal failure: Qualifiers: Acute renal failure type: unspecified Qualified Code(s): N17.9 - Acute kidney failure, unspecified Code(s): N17.9 - Acute kidney failure, unspecified Status: Resolved Assessment and Plan: Resolved (10) Altered mental status: Qualifiers: Altered mental status type: somnolence Qualified Code(s): R40.0 - Somnolence Code(s): R41.82 - Altered mental status, unspecified Status: Acute Assessment and Plan: Resolved (11) Elevated troponin I level: Code(s): R79.89 - Other specified abnormal findings of blood chemistry Status: Acute Assessment and Plan: Mild elevation with level decreasing. EKG with no acute changes. (12) DVT prophylaxis: Code(s): Z29.9 - Encounter for prophylactic measures, unspecified Status: Acute Assessment and Plan: SCDs only due to thrombocytopenia. Plts are 155 stable on dischrage. DS: Summary Time Spent with Patient Time attestation: Total time spent providing and/or coordinating discharge services:40 minutes on day of dischrage Exam Narrative: Exam Narrative: Chronically, malnourished, cachexic Const: General: cooperative, healthy appearing, comfortable, no acute distress, well developed, alert and awake Nutritional Appearance: cachectic, malnourished and underweight Orientation/consciousness: oriented to person, oriented to place, oriented to time and patient oriented x3 Other: Looks chronically ill, cachectic. Chest
== END 2019-12-06 15:00 | disposition home or self-care (01) | DRG 890 ==
LOC: ANHED 17:28 → ANHICU 20:41 → ANH3MEDSUR 11-14 17:18 → ANHIMU 11-24 22:59 → ANH3MEDSUR 11-28 10:35 → ANHICU 12-08 09:00 → ANHIMU 12-08 09:00
PROVIDERS: Family Medicine; Hospitalist; Internal Medicine Critical Care Medicine; Internal Medicine Hematology & Oncology; Internal Medicine Infectious Disease; Admitting Provider Internal Medicine; Emergency Provider Family Medicine; Visit Provider Nurse Practitioner
PROC: 0BJ08ZZ Inspection of Tracheobronchial Tree, Via Natural or Artificial Opening Endoscopic (ICD-10-PCS; CPT 31622; principal; 2019-11-24 12:00)
DX: B20 Human immunodeficiency virus [HIV] disease; B59 Pneumocystosis; N17.9 Acute kidney failure, unspecified; E41 Nutritional marasmus; E43 Unspecified severe protein-calorie malnutrition; D69.3 Immune thrombocytopenic purpura; B37.0 Candidal stomatitis; Z68.1 Body mass index [BMI] 19.9 or less, adult; Z20.828 Contact with and (suspected) exposure to other viral communicable diseases; J43.9 Emphysema, unspecified; D50.9 Iron deficiency anemia, unspecified; R40.0 Somnolence; E86.0 Dehydration; E83.42 Hypomagnesemia; E87.6 Hypokalemia; R10.13 Epigastric pain; K59.00 Constipation, unspecified; Z91.419 Personal history of unspecified adult abuse
CPT/HCPCS: 36415; 36430; 36569; 36600; 70450; 71045; 71046; 71275; 74018; 80048; 80053; 80074; 80307; 81001; 82140; 82247; 82248; 82274; 82607; 82668; 82728; 82746; 83010; 83540; 83550; 83615; 83735; 84155; 84165; 84238; 84439; 84443; 84466; 84480; 84484; 85025; 85027; 85046; 85049; 85055; 85610; 85999; 86022; 86023; 86038; 86140; 86361; 86480; 86592; 86701; 86702; 86703; 86880; 86900; 86901; 87015; 87040; 87070; 87086; 87102; 87116; 87205; 87206; 87281; 87385; 87389; 87535; 87536; 87635; 88104; 88108; 88160; 88305; 92611; 93005; 94640; 96361; 96365; 96375; 97110; 97116; 97161; 97165; 97530; 99285; A9270; C1751; C9803; G0432; J0131; J0456; J0696; J2405; J2543; J2930; J3475; J7030; J7050; J7120; J7512; P9034; Q4081; Q9967; U0003